=== PATIENT | male | born 1960 | race Caucasian/White ===

== ENCOUNTER 2019-08-26 11:45 | Inpatient (IN) | payer MEDICARE, MEDICAID ==
[~2019-08-26] VITALS: Ht 177.8 cm; Wt 68.5 kg
[2019-08-26] MEDS ORDERED: magnesium hydroxide 30ml (MOM) UD suspension PO PRN (13:15)
[2019-08-26] MEDS ORDERED: acetaminophen 325mg tablet PO PRN ×2 (13:15)
[2019-08-26] MEDS ORDERED: loperamide 2mg capsule PO PRN (13:15)
[2019-08-26] MEDS ORDERED: mag hydrox/Alum hydrox/simeth 30ml oral suspension PO PRN (13:15)
--- NOTE | 2019-08-26 14:05 | NUR ---
Client arrived on unit at 1405 hours and was alert and oriented x 3. He was unsure of event.Original 5150 accompanied client and was given to CRN. Safety search was conducted and inventory of belongings was conducted.Mental Health Assessment to be conducted by this automatic typewriter inspector.Mrsa will be collected and sent for processing. Client understands reasons for admit and has contracted verbally for safe unit behaviors. Client was given orientation of unit and room. He has been compliant with admission process and has displayed no concerning behaviors as of this writing.Vital signs on admit were, BP+ 101/60, P=86.o2 sat was 97 percent on RA and R=16. Client was drinking coffee so temperature will be taken after admission interview. Addendum: 08/26/19 at 1701 by Timmy Boss RN Admission temp was 98.1.
[2019-08-26] MEDS ORDERED: FLO0.4C PO (15:05)
[2019-08-26] MEDS ORDERED: LEVO112T5 PO (15:05)
[2019-08-26] MEDS ORDERED: CLOZ100T31 PO (15:05)
[2019-08-26] MEDS ORDERED: CEFD300C3 PO (15:05)
[2019-08-26] MEDS ORDERED: CLON-527 PO (15:05)
[2019-08-26] MEDS ORDERED: SERT100T10 PO (15:05)
[2019-08-26] MEDS ORDERED: LISI-643 PO (15:05)
[2019-08-26] MEDS ORDERED: CLOZ200T PO (15:05)
[2019-08-26] MEDS ORDERED: MULT1CAP44 PO (15:05)
[2019-08-26] MEDS ORDERED: LAMO100T2 PO (15:05)
[2019-08-26] MEDS ORDERED: PYRI50TA13 PO (15:05)
[2019-08-26] MEDS ORDERED: OLAN20TA34 PO (15:05)
[2019-08-26] MEDS ORDERED: TRAZ300T2 PO (15:05)
[2019-08-26] MEDS ORDERED: DIVA-74 PO (15:05)
[2019-08-26] MEDS ORDERED: QUET300T19 PO (15:06)
[2019-08-26] MEDS ORDERED: QUET-1 PO (15:06)
[2019-08-26] MEDS: cefpodoxime proxetil 100mg tablet PO SCH (16:52)
[2019-08-26 20:00] VITALS: BP 91/54
[2019-08-26] MEDS: traZODone 150mg tablet PO SCH (20:38)
[2019-08-26] MEDS: lamoTRIgine 100mg tablet PO SCH (20:38)
[2019-08-26] MEDS ORDERED: olanzapine 10mg tablet PO SCH (21:00)
[2019-08-27] MEDS: guaiFENesin/DM 10ml UD oral syrup PO PRN ×2 (01:03→07:32)
--- NOTE | 2019-08-27 02:59 | NUR ---
Nursing Progress Note: Legal hold: LPS conserved Client on voluntary/involuntary status for GD/DTS/DTO: GD Report received from nurse with use of SBAR: Adrián DELGADO Why are they here: PT lost his placement at [place] after being hospitalized for a suspected stroke. Pt was diagnosed with a pneumonia and after being transferred to a series of hospitals was admitted to [facility]. PT is LPS conserved. Assessment What has happened this shift: PT isolates to his room the majority of the shift aside from coming out for HS snack. He is cooperative with 1:1 assessment, but does not talk extensively. "I am just really tired." Land Examiner asks if pt knows why he is here at [facility] and he replies, "Yes I have hemochromatosis and I haven't been bled in awhile and that is a priority." He denies any depression or anxiety. He denies SI/HI/AH/VH. PT has a strong productive cough that appears to be keeping him awake. Pt's head of bed elevated and Robitussin prn was given, which had good effect. 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: tab builder, no group Were meds taken: yes Any med S/E: none observed or reported Mental Status Exam Appearance: thin man in green scrubs, greasy hair. Eye contact: poor, mostly wants his eyes closed Behavior: isolative, fatigued Speech: clear Mood: fair Affect: fatigued Thought process:linear Thought Content: thinks he is here for hemochromatosis Cognition: fair Insight: poor Judgment: poor Interventions PRN's used: Robitussin Therapeutic interventions: 1:1 bedside assessment completed, medication education and administration, Q15 minute safety rounds, therapeutic listening, reality reinforcement Justification of Continued Inpatient Treatment: LPS conserved, no current placement
[2019-08-27] MEDS ORDERED: tuberculin, purif. prot. deriv. 5 units/0.1ml ID ONE (07:30)
[2019-08-27] MEDS: tamsulosin 0.4mg capsule PO SCH (07:40)
[2019-08-27] MEDS: multivitamins, therapeutics tablet PO SCH (07:40)
[2019-08-27] MEDS: lamoTRIgine 100mg tablet PO SCH ×2 (07:40→20:04)
[2019-08-27] MEDS: pyridoxine 50mg tablet PO SCH (07:40)
[2019-08-27] MEDS: sertraline 50mg tablet PO SCH (07:40)
[2019-08-27] MEDS: levoTHYROXINE 112mcg tablet PO SCH (07:41)
[2019-08-27 08:00] VITALS: BP 103/66
[2019-08-27] MEDS: lisinopril 10 MG tablet PO SCH (08:20)
[2019-08-27] MEDS: benzocaine/menthol oral lozeng 1 EACH BOX MM PRN ×5 (08:40→22:05)
[2019-08-27] MEDS: cefpodoxime proxetil 100mg tablet PO SCH ×2 (08:41→17:21)
[2019-08-27 09:56] LABS: CHOL/HDL RATIO 3.3 (0.00-4.99); CHOLESTEROL 112 MG/DL (0-200); HDL CHOLESTEROL 34 MG/DL (35-60); LDL CHOLESTEROL 67 MG/DL (50-100); TRIGLYCERIDES 81 MG/DL (20-135)
--- NOTE | 2019-08-27 10:03 | NUR ---
Malnutrition consult: Patient with no reliable wt hx as most recent wt was 80 kg in 2014 with no documentation of how wt was obtained. Current documented wt is appropriate. Pt on regular diet with 100% PO intake meeting nutrient needs. No edema or wounds. Pt currently lacks a minimum of two criteria for malnutrition. Will continue to follow. Addendum: 08/27/19 at [address] Amended: Links added.
[2019-08-27] MEDS: NICOTINE POLACRILEX 2 MG LOZENGE BC PRN ×2 (12:40→15:17)
--- NOTE | 2019-08-27 16:49 | NUR ---
Nursing Progress Note: ARNOLDO Legal hold: LPS conserved Client on voluntary/involuntary status for GD/DTS/DTO: GD Report received from nurse with use of SBAR: CHERISE Lynn Why are they here: Pt lost his placement at [place] after being hospitalized for a suspected stroke. Pt was diagnosed with a pneumonia and after being transferred to a series of hospitals was admitted to [facility]. Pt is LPS conserved. Assessment What has happened this shift: Pt is found sleeping at change of shift. He is cooperative with 1:1 assessment at bedside, but is guarded. Pt appears very tired today. Pt appears to be confused on why he has been admitted. He denies SI/HI/AH/VH. He denies any depression or anxiety symptoms today. Pt has a strong productive cough that appears to be keeping him awake. PRN menthol/benzocaine ronna utilized freq today. He also used PRN nicotine ronna as well. He requests to have nicotine patch ordered. Pt requested multiple snacks throughout the day. S/I, H/I: denies A/VH: denies Sleep: 10.25hrs NOC ADL's: independent Group attendance: Yes Were meds taken: Yes Any med S/E: none observed or reported Mental Status Exam Appearance: disheveled in neon pants, slippers and greasy hair Eye contact: direct Behavior: isolative, fatigued Speech: clear, soft Mood: feeling better Affect: mostly fatigued Thought process: linear Thought Content: focused on nicotine ronna & cough drops Cognition: fair Insight: poor Judgment: poor Interventions PRN's used: nicotine ronna X2, cough drops X4 Therapeutic interventions: 1:1 bedside assessment completed, medication education and administration, Q15 minute safety rounds, therapeutic listening, reality reinforcement Justification of Continued Inpatient Treatment: LPS conserved, no current placement
[2019-08-27] MEDS: nicotine 21mg patch - 24 hr TD SCH (17:21)
[2019-08-27 20:00] VITALS: BP 114/85
[2019-08-27] MEDS: lactobacillus rhamnosus 10,000 MMU CELLS/CAPSULE PO SCH (20:04)
[2019-08-27] MEDS: traZODone 150mg tablet PO SCH (20:05)
--- NOTE | 2019-08-27 23:07 | NUR ---
Nursing Progress Note: Legal hold: LPS conserved Client on voluntary/involuntary status for GD/DTS/DTO: GD Report received from nurse with use of SBAR: yes Why are they here: PT lost his placement at [place] after being hospitalized for a suspected stroke. Pt was diagnosed with a pneumonia and after being transferred to a series of hospitals was admitted to [facility]. PT is LPS conserved. Assessment What has happened this shift: Pt is visible on the unit at shift change and requests to shower. Pt showers and changes into clean clothing. He is observed writing on paper and using the telephone. He said his day went "well" and denies SI/HI/AH/VH at this time. PT states he needs to be seen for his hemochromatosis. PT comes up to staff requesting ambien, pt is told ambien is not on his medication regimen, and he received trazodone. 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: shift boss, no group Were meds taken: yes Any med S/E: none observed or reported Mental Status Exam Appearance: clean green scrubs, showered this shift Eye contact: poor, mostly wants his eyes closed Behavior: isolative, fatigued Speech: clear Mood: fair Affect: fatigued Thought process:linear Thought Content: thinks he is here for hemochromatosis Cognition: fair Insight: poor Judgment: poor Interventions PRN's used: none Therapeutic interventions: 1:1 bedside assessment completed, medication education and administration, Q15 minute safety rounds, therapeutic listening, reality reinforcement Justification of Continued Inpatient Treatment: LPS conserved, no current placement
[2019-08-28] MEDS: NICOTINE POLACRILEX 2 MG LOZENGE BC PRN ×4 (00:17→20:39)
[2019-08-28] MEDS: benzocaine/menthol oral lozeng 1 EACH BOX MM PRN ×7 (00:35→23:09)
[2019-08-28] MEDS: levoTHYROXINE 112mcg tablet PO SCH (07:44)
[2019-08-28] MEDS: multivitamins, therapeutics tablet PO SCH (07:44)
[2019-08-28] MEDS: tamsulosin 0.4mg capsule PO SCH (07:45)
[2019-08-28] MEDS: lisinopril 10 MG tablet PO SCH (07:45)
[2019-08-28] MEDS: sertraline 50mg tablet PO SCH (07:46)
[2019-08-28] MEDS: lactobacillus rhamnosus 10,000 MMU CELLS/CAPSULE PO SCH ×2 (07:46→20:38)
[2019-08-28] MEDS: lamoTRIgine 100mg tablet PO SCH ×2 (07:46→20:38)
[2019-08-28] MEDS: pyridoxine 50mg tablet PO SCH (07:46)
[2019-08-28] MEDS: nicotine 21mg patch - 24 hr TD SCH (07:49)
[2019-08-28] MEDS: cefpodoxime proxetil 100mg tablet PO SCH ×2 (08:02→18:07)
[2019-08-28 08:14] VITALS: BP 110/68
--- NOTE | 2019-08-28 10:39 | NUR ---
Called [facility] (ph# [phone]-direct line) and left a message requesting a call back regarding placement. Main # for [facility] is [phone] VERONIQUE Finney
--- NOTE | 2019-08-28 17:31 | NUR ---
Nursing Progress Note: Legal hold: LPS conserved Client on voluntary/involuntary status for GD/DTS/DTO: GD Report received from nurse Chely Guerrero with use of SBAR: yes Why are they here: PT lost his placement at [place] after being hospitalized for a suspected stroke. Pt was diagnosed with a pneumonia and after being transferred to a series of hospitals was admitted to [facility]. PT is LPS conserved. Assessment What has happened this shift: Pt. asleep at start of shift. Pt. awake for breakfast and ate all meals in community room. Pt. is focused on calling pt. advocate and spent majority of the morning making phone calls but will discuss who he is making phone calls to nor why. 1:1 done at bedside. Pt. offers minimal information during interview. Pt. denies SI/HI, A/V hallucinations. Pt. isolates to his room, seen writing down notes and numbers on paper. Pt. rarely socializes wtih other patients. Pt. is easily distracted. Pt. starts to eat his lunch and then becomes distracted, going to his room and writing things down. S/I, H/I: denies A/VH: denies Sleep: Pt. did not nap on day shift. ADL's: independent Group attendance: No Were meds taken: Yes Any med S/E: none observed or reported Mental Status Exam Appearance: clean green scrubs, showered this shift Eye contact: minimal Behavior: Isolative, guarded Speech: clear Mood: fair Affect: fatigued Thought process: linear, paranoid Thought Content: Pt. focused on making phone calls but does not say to who. Cognition: fair Insight: poor Judgment: poor Interventions PRN's used: none Therapeutic interventions: 1:1 bedside assessment completed, medication education and administration, Q15 minute safety rounds, therapeutic listening, reality reinforcement Justification of Continued Inpatient Treatment: LPS conserved, no current placement
[2019-08-28 20:00] VITALS: BP 129/76
[2019-08-28] MEDS: traZODone 150mg tablet PO SCH (20:38)
[2019-08-28] MEDS: hydrOXYzine 25 MG tablet PO PRN (23:08)
--- NOTE | 2019-08-28 23:51 | NUR ---
Nursing Progress Note: Legal hold: LPS conserved Client on voluntary/involuntary status for GD/DTS/DTO: GD Report received from Seven RN via SBAR Why are they here: PT lost his placement at [place] after being hospitalized for a suspected stroke. Pt was diagnosed with a pneumonia and after being transferred to a series of hospitals was admitted to [facility]. PT is LPS conserved. Assessment What has happened this shift: Pt walking around the unit, intermittently entering his room to use the telephone in an attempt to call his friend, Ghulam. "Just a friend, he's a block sealer. I've another friend who is an environmental permitting specialist, so he's very muscular, you know." Pt had to be directed not to hide the phone, as other people may want to use it and that it needs to be charged when not in use. Pt was educated that he could approach the nurses station to retrieve the phone within allowed hours, so long as it wasn't be used by another patient. Ridge nodded, stating, "Of course, of course". Pt's thoughts jump from topic to topic, but this RN was able to redirect to question be asked. Pt unable to detail history behind admission. Pt states he "has studied many things [lists multiple subjects], and my roommate is a 5 star general." Pt has loud, dry cough with diminished sound in bilateral lung bases. Pt attended snack and occasionally interacted with peers. Turned in to sleep at 2330. S/I, H/I: Denies A/VH: Denies Sleep: See Sleep Assessment 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: N/A Were meds taken: Yes Any med S/E: None observed nor reported Mental Status Exam Appearance: Green unit scrub pants, personal sweater, hair combed Eye contact: Direct Behavior: Walking around unit, talking on the phone, Writing on paper in room, coloring Speech: Clear, normal rate and rhythm Mood: "I'm okay" Affect: Blunted with occasional brightening Thought process: Delusional Thought Content: Reaching his friend, Ghulam, via telephone; Wanting to go home Cognition: Impaired, A/Ox3 (off for events) Insight: Poor Judgment: Poor to fair Interventions PRN's used: Nicotine Lozenge, Chloraseptic Lozenge x2, Atarax Therapeutic interventions: 1:1 bedside assessment completed, medication education and administration, Q15 minute safety rounds, therapeutic listening, reality reinforcement Justification of Continued Inpatient Treatment: LPS conserved, no current placement. Awaiting call back from Tong Gonzalez.
--- NOTE | 2019-08-29 06:50 | NUR ---
Met with Ct yesterday to complete Psychosocial Assessment. Left message for [facility] (ph# [phone]) regarding placement. Main # for [facility] is [phone]. VERONIQUE Finney Addendum: 08/29/19 at 0653 by Genesis Farrell SS Amended: Links added.
[2019-08-29 07:56] VITALS: BP 113/57
[2019-08-29] MEDS: nicotine 21mg patch - 24 hr TD SCH (08:41)
[2019-08-29] MEDS: tamsulosin 0.4mg capsule PO SCH (08:42)
[2019-08-29] MEDS: cefpodoxime proxetil 100mg tablet PO SCH ×2 (08:42→17:59)
[2019-08-29] MEDS: pyridoxine 50mg tablet PO SCH (08:42)
[2019-08-29] MEDS: lactobacillus rhamnosus 10,000 MMU CELLS/CAPSULE PO SCH ×2 (08:42→21:04)
[2019-08-29] MEDS: multivitamins, therapeutics tablet PO SCH (08:42)
[2019-08-29] MEDS: lisinopril 10 MG tablet PO SCH (08:42)
[2019-08-29] MEDS: NICOTINE POLACRILEX 2 MG LOZENGE BC PRN ×4 (08:42→18:04)
[2019-08-29] MEDS: levoTHYROXINE 112mcg tablet PO SCH (08:42)
[2019-08-29] MEDS: sertraline 50mg tablet PO SCH (08:42)
[2019-08-29] MEDS: lamoTRIgine 100mg tablet PO SCH ×2 (08:42→21:03)
[2019-08-29] MEDS: benzocaine/menthol oral lozeng 1 EACH BOX MM PRN ×4 (10:59→23:37)
--- NOTE | 2019-08-29 15:21 | NUR ---
Nursing Progress Note: ARNOLDO Legal hold: LPS conserved Client on voluntary/involuntary status for GD/DTS/DTO: GD Report received from CHERISE Lynn via SBAR Why are they here: PT lost his placement at [place] after being hospitalized for a suspected stroke. Pt was diagnosed with a pneumonia and after being transferred to a series of hospitals was admitted to [facility]. PT is LPS conserved. Assessment What has happened this shift: Pt walking around the unit at shift change. He requests nicotine ronna and cough drops freq throughout the day. Pt has poor boundaries today and often comes into the nurses station and asks for misc items throughout the day. Pt's thoughts jump from topic to topic, but this RN was able to redirect to question be asked. He reports that his girlfriend is Deborah Sher. Pt has loud, dry cough he reports it has been improving. Pt is paranoid and accusatory with his roommate, hinting that his roommate stole papers/phone numbers from his side table. TB test completed today. S/I, H/I: Denies A/VH: Denies Sleep: 4.25hrs noc 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: yes Were meds taken: Yes Any med S/E: None observed nor reported Mental Status Exam Appearance: Green unit scrub pants, personal sweater, hair combed Eye contact: Direct Behavior: Walking around unit, talking on the phone Speech: Clear, normal rate and rhythm Mood: "I'm fine" Affect: Blunted with occasional brightening Thought process: Delusional, paraniod Thought Content: Wanting to go home, reminiscing about historical events Cognition: Impaired, A/Ox3 Insight: Poor Judgment: Poor Interventions PRN's used: Nicotine Lozenge X3, Chloraseptic Lozenge x4 Therapeutic interventions: 1:1 bedside assessment completed, medication education and administration, Q15 minute safety rounds, therapeutic listening, reality reinforcement Justification of Continued Inpatient Treatment: LPS conserved, no current placement. Awaiting call back from Tong Gonzalez.
[2019-08-29 17:23] LABS: BASOPHILS # (AUTO) 0.1 X10'3 (0-0.2); BASOPHILS % (AUTO) 0.5 % (0-1); EOSINOPHILS # (AUTO) 0.2 X10'3 (0-0.9); EOSINOPHILS % (AUTO) 1.6 % (0-6); LYMPHOCYTES # (AUTO) 1.8 X10'3 (1.1-4.8); LYMPHOCYTES % (AUTO) 11.9 % (21-51); MEAN CORPUSCULAR HGB CONC 34.2 g/dL (33.0-36.5); MEAN CORPUSCULAR VOLUME 93.5 FL (78-98); MEAN PLATELET VOLUME 6.2 FL (7.4-10.4); MONOCYTES # (AUTO) 1.4 X10'3 (0-0.9); MONOCYTES % (AUTO) 9.2 % (2-12); NEUTROPHILS # (AUTO) 11.6 X10'3 (1.8-7.7); NEUTROPHILS % (AUTO) 76.8 % (42-75); PLATELET COUNT 572 X10'3 (140-440); RED BLOOD COUNT 3.75 X10'6 (4.70-6.10); RED CELL DISTRIBUTION WIDTH 14.1 % (11.5-14.5); WHITE BLOOD COUNT 15.1 X10'3 (4.5-11.0)
[2019-08-29 20:00] VITALS: BP 122/64
[2019-08-29] MEDS ORDERED: traZODone 50mg tablet PO SCH (21:00)
[2019-08-29] MEDS: traZODone 150mg tablet PO SCH (21:04)
[2019-08-29] MEDS ORDERED: aspirin/acetaminophen/caffeine tablet PO PRN (23:45)
--- NOTE | 2019-08-30 01:19 | NUR ---
Nursing Progress Note: Legal hold: LPS conserved Client on involuntary status GD Report received from CHERISE Blanchard with use of SBAR Why are they here: PT lost his placement at [place] after being hospitalized for a suspected stroke. Pt was diagnosed with a pneumonia and after being transferred to a series of hospitals was admitted to [facility]. PT is LPS conserved. Assessment What has happened this shift: Pt seen walking the unit at shift change. Pt comes into observation room, wanting his night meds. Pt is cooperative with 1:1 assessment and is medication compliant. Pt has a room change and states "I like my room, for now." Pt is up for HS snack then retires to bed after medication administration. Pt later requests a throat lozenge and a nicotine lozenge at the same time. Administered throat lozenge and would admin the nicotine lozenge shortly after. Pt was satisfied. Pt remains in bed sleeping at the time of this writing. 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 Cognition: Impaired, A/Ox3 (off for events) Insight: Poor Judgment: Poor Interventions PRN's used: Chloraseptic Lozenge, Tylenol Therapeutic interventions: 1:1 therapeutic assessment, medication administration/education/monitoring, therapeutic listening, reinforced realty, Q15 minute safety check. Justification of Continued Inpatient Treatment: LPS conserved, no current placement. Awaiting call back from Tong Gonzalez. Addendum: 08/30/19 at 0225 by Marlen Mcallister RN Pt woke up requesting a Nicotine Lozenge. Pt is on continuously on his call light and states "it is morning time, it is time to be up." Pt is keeping his roommate awake. Administered Atarax. Will continue to monitor. Addendum: 08/30/19 at 0349 by Marlen Mcallister RN Pt insisted on leaving Nicotine patch on. Pt was educated that is does cause night cantu. CBC results from 08/29 ; WBC 15.1; RBC 3.75 HGB 12.0, HCT 35. Pt has hemochromatosis. Addendum: 08/30/19 at 0604 by Marlen Mcallister RN Pt continuously asking for Nicotine Lozenge and throat lozenge. Attempted to educated pt throughout the night in the use of lozenges. Pt chews them then wants another.
[2019-08-30] MEDS: hydrOXYzine 25 MG tablet PO PRN (02:18)
[2019-08-30] MEDS: NICOTINE POLACRILEX 2 MG LOZENGE BC PRN ×4 (02:18→17:01)
[2019-08-30] MEDS: LORazepam 1 MG tablet PO PRN ×2 (02:49→10:40)
[2019-08-30] MEDS: benzocaine/menthol oral lozeng 1 EACH BOX MM PRN ×3 (03:33→18:10)
[2019-08-30] MEDS: lactobacillus rhamnosus 10,000 MMU CELLS/CAPSULE PO SCH ×2 (07:21→21:54)
[2019-08-30] MEDS: multivitamins, therapeutics tablet PO SCH (07:21)
[2019-08-30] MEDS: lamoTRIgine 100mg tablet PO SCH ×2 (07:21→21:54)
[2019-08-30] MEDS: levoTHYROXINE 112mcg tablet PO SCH (07:21)
[2019-08-30] MEDS: pyridoxine 50mg tablet PO SCH (07:21)
[2019-08-30] MEDS: tamsulosin 0.4mg capsule PO SCH (07:22)
[2019-08-30] MEDS: sertraline 50mg tablet PO SCH (07:22)
[2019-08-30] MEDS: lisinopril 10 MG tablet PO SCH (07:24)
[2019-08-30] MEDS: nicotine 21mg patch - 24 hr TD SCH (07:28)
[2019-08-30 07:53] VITALS: BP 127/66
[2019-08-30] MEDS: cefpodoxime proxetil 100mg tablet PO SCH ×2 (08:40→16:55)
--- NOTE | 2019-08-30 11:17 | NUR ---
DISCHARGE PLANNING Faxed Physician's report, PPD Results, and H&P to Tennille Christopher, [facility], at their request for placement. Fax# [phone] Phone# [phone] VERONIQUE Finney
--- NOTE | 2019-08-30 13:43 | NUR ---
Initial: patient continues to meet needs with PO Intake. On average, patient is eating 75-100% of meals, patient was eating 25-49% for just three meals and eating adequately with all others. No nutrition problem at this time. Will continue to follow. Recommend: 1. continue regular diet 2. bowel care as needed 3. weight per rx Addendum: 08/30/19 at [address] Amended: Links added.
--- NOTE | 2019-08-30 16:09 | NUR ---
Nursing Progress Note: Ridge Legal hold: LPS conserved Client on involuntary status GD Report received from Chely Guerrero RN with use of SBAR Why are they here: PT lost his placement at [place] after being hospitalized for a suspected stroke. Pt was diagnosed with a pneumonia and after being transferred to a series of hospitals was admitted to [facility]. PT is LPS conserved. Assessment: Client was awake and visible on unit to begin the shift. Client has had some behaviors the required redirection and limit setting. Client has been hoarding the phone and behaving in an intrusive manner at the Nursing Station. Client was assigned a staff member for him to bring request to. Also, client is permitted to use the phone but the use must consider that other members of the milleu need to utilize the phone as well. Client was given a PRN of Ativan this am for agitation with good effect noted. Client did participate in am group activities and socialized well during that time. Client was discovered to be defacating on his bathroom floor and utilizing socks for cleaning and then discared on the floor. Client was redirected and it was explained to him that his actions posed a risk to other peers as well as staff. Client wants to blame others for the action but he was observed directly by staff conducting the above mentioned activities. Client will be given gloves and the request will be made for him to clean his bathroom. It is felt by this lyric writer as well as Techs that these actions have been deliberate and client is intentionally acting in this manner for secondary gain. After soiling himself, bathroom and room with feces, client stated, " Makenna (Housekeeping) needs to clean my room again. Client was given cleaning equipment and was escorted 3 by Staff to client bathroom. Client was given gloves and instructions as it pertains to "universal precautions" and was asked to clean up the bathroom. He conducted the cleaning and washed his hands afterwards. Soiled linen and equipment were disposed of per unit protocol by Staff. Client returned to Group Room after cleaning and behavior has been very appropriate as of this writing. (1436 hours). At 1500 hours , client approached this lyric writer and requested that he have access to his room. He demonstrated good insight while explaining his earlier actions and allowed that he was responsible for the, "mess" and that future oversights will be corrected in the same manner. He was permitted the use of the room and his behaviors have been appropriate since.(1517) Called received from Pharmacy stating antibiotic will be discontinuesd and that another evaluation will be needed before starting any more antibiotic therapy. Client did have an elevated WBC count on most recent labwork. Client behavior has been appropriate this afternoon. He has been playing music with peers and affect is bright. S/I, H/I: Pt denies A/VH: Pt denies Sleep: rested at times this shift ADL's: needs prompting Group attendance: yes Were meds taken: Medication compliant Any med S/E: None observed or reported Mental Status Exam Appearance: Disheveled, wearing green unit scrubs Eye contact: Direct Behavior: Cooperative Speech: Clear, normal rate and rhythm Mood: Affect: Blunted with occasional brightening Thought process: Delusional Thought Content: Cognition: Impaired, A/Ox3 (off for events) Insight: Poor Judgment: Poor Interventions PRN's used: Ativan,nicotine replacement and Chloreseptic Lozenge. Therapeutic interventions: 1:1 therapeutic assessment, medication administration/education/monitoring, therapeutic listening, reinforced realty, Q15 minute safety check. Justification of Continued Inpatient Treatment: LPS conserved, no current placement. Awaiting call back from Tong Gonzalez.
[2019-08-30 20:00] VITALS: BP 103/51
[2019-08-30] MEDS ORDERED: QUEtiapine 25mg tablet PO ONE (21:45)
[2019-08-30] MEDS: traZODone 150mg tablet PO SCH (21:53)
--- NOTE | 2019-08-31 00:55 | NUR ---
Nursing Progress Note: Legal hold: LPS conserved Client on involuntary status GD Report received from CHERISE Blanchard with use of SBAR Why are they here: PT lost his placement at [place] after being hospitalized for a suspected stroke. Pt was diagnosed with a pneumonia and after being transferred to a series of hospitals was admitted to [facility]. PT is LPS conserved. Assessment What has happened this shift: Pt is in his room at shift change. Pt is requesting to take a shower. Pt is up for shower then to HS snack. Pt is cooperative, but does not engage in conversation. Pt has no behavioral issues this shift. Pt is medication compliant. Pt's nicotine patch came off in shower. Discarded in appropriate container. Seroquel 50mg was added to scheduled HS meds. Incontinent incident: Pt came out of room around 0015 with no pants. Pt was incontinent of bowels. Large amout of stool on bed and in toilet. Pt showered and bedding was changed. No c/o of GI issue from patient. S/I, H/I: Pt denies A/VH: Pt denies Sleep: See Sleep Assessment 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: wrist liner, no group Were meds taken: Medication compliant Any med S/E: None observed or reported Mental Status Exam Appearance: Disheveled, wearing green unit scrubs Eye contact: Direct Behavior: Cooperative Speech: Clear, normal rate and rhythm Mood: Quiet Affect: Blunted with occasional brightening Thought process: Delusional Thought Content: Cognition: Impaired, A/Ox3 (off for events) Insight: Poor Judgment: Poor Interventions PRN's used: None Therapeutic interventions: 1:1 therapeutic assessment, medication administration/education/monitoring, therapeutic listening, reinforced realty, Q15 minute safety check. Justification of Continued Inpatient Treatment: LPS conserved, no current placement. Awaiting call back from Tong Gonzalez. Addendum: 08/31/19 at 0301 by Marlen Mcallister RN Pt up with another stool incontinent episode. Assisted in cleaning up pt and administering 2mg Imodium.
[2019-08-31] MEDS: NICOTINE POLACRILEX 2 MG LOZENGE BC PRN ×5 (06:47→19:18)
[2019-08-31] MEDS: benzocaine/menthol oral lozeng 1 EACH BOX MM PRN ×3 (06:47→12:51)
[2019-08-31] MEDS: lactobacillus rhamnosus 10,000 MMU CELLS/CAPSULE PO SCH ×2 (07:35→20:29)
[2019-08-31] MEDS: pyridoxine 50mg tablet PO SCH (07:35)
[2019-08-31] MEDS: cefpodoxime proxetil 100mg tablet PO SCH ×2 (07:35→17:33)
[2019-08-31] MEDS: nicotine 21mg patch - 24 hr TD SCH (07:35)
[2019-08-31] MEDS: levoTHYROXINE 112mcg tablet PO SCH (07:36)
[2019-08-31] MEDS: tamsulosin 0.4mg capsule PO SCH (07:36)
[2019-08-31] MEDS: lamoTRIgine 100mg tablet PO SCH (07:36)
[2019-08-31] MEDS: lisinopril 10 MG tablet PO SCH (07:36)
[2019-08-31] MEDS: sertraline 50mg tablet PO SCH (07:36)
[2019-08-31] MEDS: multivitamins, therapeutics tablet PO SCH (07:36)
[2019-08-31 07:48] VITALS: BP 99/55
--- NOTE | 2019-08-31 15:20 | NUR ---
Nursing Progress Note: [facility] Legal hold: LPS conserved Client on involuntary status GD Report received from CHERISE Cerda with use of SBAR Why are they here: PT lost his placement at [place] after being hospitalized for a suspected stroke. Pt was diagnosed with a pneumonia and after being transferred to a series of hospitals was admitted to [facility]. PT is LPS conserved. Assessment What has happened this shift: On arrival on unit, patient was using call light for general requests. Immediately spoke with patient regarding appropriate use of call light setting limits, verbalized understanding and behavior immediately stopped. Patient then repeatedly hollered down the sterling the nurses name, again, he was redirected that this behavior is not appropriate and he can approach the staff respectfully for any requests. Patient then apologized and verbalized understanding. During lunch he began coughing, stating he was choking, the behavior continued until he was asked to return to his room to avoid annoying others. He is easily redirectable, observed putting a puzzle together following lunch. Remained very pleasant and appropriate throughout afternoon. S/I, H/I: Pt denies A/VH: Pt denies Sleep: 6.5 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: no Were meds taken: Yes Any med S/E: None observed or reported Mental Status Exam Appearance: Disheveled, wearing green unit scrubs Eye contact: Direct Behavior: Cooperative Speech: Clear, pressured at times and regular rhythm Mood: angry, irritable Affect: congruent with mood Thought process: concrete Thought Content: disorganized, circumstantial Cognition: Impaired, A/Ox3 Insight: Poor Judgment: Poor Interventions PRN's used: None Therapeutic interventions: 1:1 therapeutic assessment, medication administration/education/monitoring, therapeutic listening, reinforced realty, Q15 minute safety check. Justification of Continued Inpatient Treatment: LPS conserved, no current placement. Awaiting call back from Tong Gonzalez.
[2019-08-31 19:32] VITALS: BP 122/68
[2019-08-31] MEDS: lamoTRIgine 25mg tablet PO SCH (20:29)
[2019-08-31] MEDS: traZODone 150mg tablet PO SCH (20:31)
[2019-08-31] MEDS ORDERED: QUEtiapine 25mg tablet PO SCH (21:00)
[2019-08-31] MEDS: quetiapine 100mg tablet PO SCH (21:03)
--- NOTE | 2019-08-31 22:13 | NUR ---
Nursing Progress Note: Legal hold: LPS conserved Client on involuntary status GD Report received from CHERISE Blanchard with use of SBAR Why are they here: PT lost his placement at [place] after being hospitalized for a suspected stroke. Pt was diagnosed with a pneumonia and after being transferred to a series of hospitals was admitted to [facility]. PT is LPS conserved. Assessment What has happened this shift: Pt sitting in group room putting together a puzzle at shift change. Pt is alert and cooperative. Pt states he has had no incontinent issues during the day. Pts nicotine patch was removed and discarded in appropriate container. Pt had to be redirected when he yelled for this film writer down the sterling,requesting a lozenge; other than that outburst there has been no behavioral issues with patient. Pt was medication compliant. Pt retired to his room after HS snack. Pt sleeping comfortably as of this writing. Will continue to monitor. S/I, H/I: Pt denies A/VH: Pt denies Sleep: See Sleep Assessment notation. Administered scheduled 150mg Trazadone. 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, no group Were meds taken: Medication compliant Any med S/E: None observed or reported Mental Status Exam Appearance: Disheveled, wearing green unit scrubs Eye contact: Direct Behavior: Cooperative Speech: Clear, normal rate and rhythm Mood: Slightly agitated Affect: Congruent with mood Thought process: Circumstantial Thought Content: Cognition: Impaired, A/Ox3 (off for events) Insight: Poor Judgment: Poor Interventions PRN's used: Nicotine lozenge Therapeutic interventions: 1:1 therapeutic assessment, limit setting, medication administration/education/monitoring, therapeutic listening, reinforced reality, [id number] minute safety check. Justification of Continued Inpatient Treatment: LPS conserved, no current placement. Awaiting call back from Tong Gonzalez.
[2019-09-01] MEDS: NICOTINE POLACRILEX 2 MG LOZENGE BC PRN ×7 (04:01→18:40)
[2019-09-01] MEDS: benzocaine/menthol oral lozeng 1 EACH BOX MM PRN ×7 (05:53→16:34)
[2019-09-01 07:15] VITALS: BP 116/67
[2019-09-01] MEDS: lamoTRIgine 25mg tablet PO SCH ×2 (07:38→20:39)
[2019-09-01] MEDS: pyridoxine 50mg tablet PO SCH (07:38)
[2019-09-01] MEDS: sertraline 50mg tablet PO SCH (07:39)
[2019-09-01] MEDS: multivitamins, therapeutics tablet PO SCH (07:39)
[2019-09-01] MEDS: lactobacillus rhamnosus 10,000 MMU CELLS/CAPSULE PO SCH ×2 (07:39→20:39)
[2019-09-01] MEDS: tamsulosin 0.4mg capsule PO SCH (07:39)
[2019-09-01] MEDS: levoTHYROXINE 112mcg tablet PO SCH (07:39)
[2019-09-01] MEDS: lisinopril 10 MG tablet PO SCH (07:39)
[2019-09-01] MEDS: cefpodoxime proxetil 100mg tablet PO SCH ×2 (07:39→17:03)
[2019-09-01] MEDS: nicotine 21mg patch - 24 hr TD SCH (07:43)
--- NOTE | 2019-09-01 15:16 | NUR ---
Nursing Progress Note: [facility] Legal hold: LPS conserved Client on involuntary status GD Report received from CHERISE Cerda with use of SBAR Why are they here: PT lost his placement at [place] after being hospitalized for a suspected stroke. Pt was diagnosed with a pneumonia and after being transferred to a series of hospitals was admitted to [facility]. PT is LPS conserved. Assessment What has happened this shift: Pt. Awake and in hallway at change of shift. Upon introduction, patient responded with a low grump. Appropriate with 1:1 assessment and medication administration. Polite and calm during breakfast. Mentioned he was waiting for Biden to show up. When asked if he knew him, he stated no, but he knows me. Remained in community room following breakfast, watching TV and working a puzzle. Was initially told he could not go outside with the group and very calmly asked this repairer typewriter why, (which it was a mistake). He was accompanied to the patio by two staff members and showed appreciation for the time. Has been cooperative and demonstrated appropriate behavior all day. S/I, H/I: Pt denies A/VH: Pt denies Sleep: 7 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: yes Were meds taken: Medication compliant Any med S/E: None observed or reported Mental Status Exam Appearance: Disheveled, wearing green unit scrubs Eye contact: Direct Behavior: Cooperative Speech: Clear, normal rate and rhythm Mood: labile, mostly cooperative Affect: Congruent with mood Thought process: Circumstantial Thought Content: delusional Cognition: Impaired, A/Ox3 Insight: Poor Judgment: Poor Interventions PRN's used: Therapeutic interventions: 1:1 therapeutic assessment, limit setting, medication administration/education/monitoring, therapeutic listening, reinforced reality, [id number] minute safety check. Justification of Continued Inpatient Treatment: LPS conserved, no current placement. Awaiting call back from Tong Gonzalez.
[2019-09-01 19:26] VITALS: BP 123/66
[2019-09-01] MEDS: traZODone 150mg tablet PO SCH (20:39)
[2019-09-01] MEDS: quetiapine 100mg tablet PO SCH (20:39)
--- NOTE | 2019-09-02 00:58 | NUR ---
Nursing Progress Note: [facility] Legal hold: LPS conserved Client on involuntary status GD Report received from CHERISE Blanchard with use of SBAR Why are they here: PT lost his placement at [place] after being hospitalized for a suspected stroke. Pt was diagnosed with a pneumonia and after being transferred to a series of hospitals was admitted to [facility]. PT is LPS conserved. Assessment What has happened this shift: Patient is in his room isolating after shift change. He is cooperative and friendly. He denies S/I or H/I at this time, he denies voices. Patient is delusional at times. Patient states he is feeling good. He does not elaborate about his thoughts. Patient presents as delusional at times. the patient is advised that he is in a safe place. S/I, H/I: Pt denies. A/VH: Pt denies Sleep:Will tally at 0500. 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: Yes, on day shift. Were meds taken: Medication compliant Any med S/E: None observed or reported. Mental Status Exam Appearance: Disheveled, wearing green unit scrubs. Eye contact: Direct. Behavior: Cooperative Speech: Clear, normal rate and rhythm Mood: Cooperative. Affect: Congruent with mood. Thought process: Circumstantial. Thought Content: Delusional. Cognition: Impaired, A/Ox3 Insight: Poor. Judgment: Poor. Interventions PRN's used: Therapeutic interventions: 1:1 therapeutic assessment, limit setting, medication administration/education/monitoring, therapeutic listening, reinforced reality, [id number] minute safety check. Justification of Continued Inpatient Treatment: LPS conserved, no current placement. Awaiting call back from Tong Gonzalez.
[2019-09-02] MEDS: NICOTINE POLACRILEX 2 MG LOZENGE BC PRN ×3 (05:45→21:18)
[2019-09-02] MEDS: benzocaine/menthol oral lozeng 1 EACH BOX MM PRN ×2 (07:06→10:15)
[2019-09-02 07:27] VITALS: BP 107/60
[2019-09-02] MEDS: lactobacillus rhamnosus 10,000 MMU CELLS/CAPSULE PO SCH ×2 (08:07→21:19)
[2019-09-02] MEDS: sertraline 50mg tablet PO SCH (08:07)
[2019-09-02] MEDS: lamoTRIgine 25mg tablet PO SCH ×2 (08:07→21:19)
[2019-09-02] MEDS: multivitamins, therapeutics tablet PO SCH (08:07)
[2019-09-02] MEDS: tamsulosin 0.4mg capsule PO SCH (08:07)
[2019-09-02] MEDS: levoTHYROXINE 112mcg tablet PO SCH (08:07)
[2019-09-02] MEDS: pyridoxine 50mg tablet PO SCH (08:07)
[2019-09-02] MEDS: cefpodoxime proxetil 100mg tablet PO SCH (08:07)
[2019-09-02] MEDS: nicotine 21mg patch - 24 hr TD SCH (08:09)
[2019-09-02] MEDS: lisinopril 10 MG tablet PO SCH (08:11)
--- NOTE | 2019-09-02 19:23 | NUR ---
Nursing Progress Note: [facility] Legal hold: LPS conserved Client on involuntary status GD Report received from CHERISE Blanchard with use of SBAR Why are they here: PT lost his placement at [place] after being hospitalized for a suspected stroke. Pt was diagnosed with a pneumonia and after being transferred to a series of hospitals was admitted to [facility]. PT is LPS conserved. Assessment What has happened this shift:This patient is ambulatory and socializing with other patients. Patient is Oriented X3 but becomes delusional intermittently. He speaks quietly and makes intermittent eye contact. Patient states he is feeling fine. He denies H/I or S/I. He denies hallucinations. Patients appearance is disheveled. The patient is cooperative and medication compliant. S/I, H/I: Pt denies. A/VH: Pt denies Sleep:Will tally at 0500. 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: Yes, on day shift. Were meds taken: Medication compliant Any med S/E: None observed or reported. Mental Status Exam Appearance: Disheveled, wearing green unit scrubs. Eye contact: Direct. Behavior: Cooperative Speech: Clear, normal rate and rhythm Mood: Cooperative. Affect: Congruent with mood. Thought process: Circumstantial. Thought Content: Delusional. Cognition: Impaired, A/Ox3 Insight: Poor. Judgment: Poor. Interventions PRN's used: Therapeutic interventions: 1:1 therapeutic assessment, limit setting, medication administration/education/monitoring, therapeutic listening, reinforced reality, [id number] minute safety check. Justification of Continued Inpatient Treatment: LPS conserved, no current placement. Awaiting call back from Tong Gonzalez.
[2019-09-02 19:57] VITALS: BP 127/76
[2019-09-02] MEDS: quetiapine 100mg tablet PO SCH (21:19)
[2019-09-02] MEDS: traZODone 150mg tablet PO SCH (21:19)
[2019-09-03] MEDS: benzocaine/menthol oral lozeng 1 EACH BOX MM PRN ×3 (04:58→20:43)
[2019-09-03 07:20] VITALS: BP 116/55
[2019-09-03] MEDS: sertraline 50mg tablet PO SCH (07:37)
[2019-09-03] MEDS: pyridoxine 50mg tablet PO SCH (07:37)
[2019-09-03] MEDS: lamoTRIgine 25mg tablet PO SCH ×2 (07:38→20:23)
[2019-09-03] MEDS: levoTHYROXINE 112mcg tablet PO SCH (07:38)
[2019-09-03] MEDS: lisinopril 10 MG tablet PO SCH (07:39)
[2019-09-03] MEDS: nicotine 21mg patch - 24 hr TD SCH (07:39)
[2019-09-03] MEDS: lactobacillus rhamnosus 10,000 MMU CELLS/CAPSULE PO SCH ×2 (07:39→20:23)
[2019-09-03] MEDS: tamsulosin 0.4mg capsule PO SCH (07:39)
[2019-09-03] MEDS: multivitamins, therapeutics tablet PO SCH (07:40)
--- NOTE | 2019-09-03 10:43 | NUR ---
DISCHARGE PLANNING Called Angela Christopher (Phone# [phone]) with [facility] to see if there is an update on Ct's placement. Left message requesting a call back. VERONIQUE Finney
[2019-09-03] MEDS: NICOTINE POLACRILEX 2 MG LOZENGE BC PRN ×2 (11:12→20:27)
[2019-09-03 15:42] LABS: BASOPHILS # (AUTO) 0.1 X10'3 (0-0.2); BASOPHILS % (AUTO) 0.7 % (0-1); EOSINOPHILS # (AUTO) 0.1 X10'3 (0-0.9); EOSINOPHILS % (AUTO) 1.1 % (0-6); HEMATOCRIT 41.1 % (42.0-52.0); HEMOGLOBIN 13.8 g/dl (14.0-17.9); LYMPHOCYTES # (AUTO) 1.6 X10'3 (1.1-4.8); MEAN CORPUSCULAR HEMOGLOBIN 31.4 PG (27.0-31.0); MEAN CORPUSCULAR HGB CONC 33.7 g/dL (33.0-36.5); MEAN CORPUSCULAR VOLUME 93.2 FL (78-98); MEAN PLATELET VOLUME 6.5 FL (7.4-10.4); MONOCYTES # (AUTO) 0.9 X10'3 (0-0.9); MONOCYTES % (AUTO) 7.8 % (2-12); NEUTROPHILS # (AUTO) 9.4 X10'3 (1.8-7.7); NEUTROPHILS % (AUTO) 77.4 % (42-75); PLATELET COUNT 500 X10'3 (140-440); RED BLOOD COUNT 4.41 X10'6 (4.70-6.10); RED CELL DISTRIBUTION WIDTH 14.2 % (11.5-14.5); WHITE BLOOD COUNT 12.1 X10'3 (4.5-11.0)
--- NOTE | 2019-09-03 16:27 | NUR ---
Nursing Progress Note: [facility] Legal hold: LPS conserved Client on involuntary status GD Report received from CHERISE Lynn with use of SBAR Why are they here: PT lost his placement at [place] after being hospitalized for a suspected stroke. Pt was diagnosed with a pneumonia and after being transferred to a series of hospitals was admitted to [facility]. PT is LPS conserved. Assessment What has happened this shift: Client was in bed to begin this shift. Client has been refusing to shower or perform ADL's. He will be prompted after breakfast to conduct a shower. He is malodorous and his clothes are not clean. Client is resistive to direction from staff. Compliant with medications and refused am assessment. Client did shower after several prompts. He attended am group but did not participate. Client is labile but redirectable. Client has required frequent redirection this shift as he is demanding and intrusive with staff. Client has been more social this afternoon with both staff and peers. S/I, H/I: Pt denies. A/VH: Pt denies Sleep: 6.5 hours last shift. ADL's: Independent NEEDS PROMPTING Group attendance: yes Were meds taken: Medication compliant Any med S/E: None observed or reported. Mental Status Exam Appearance: Disheveled, wearing green unit scrubs, green t-shirt Eye contact: Direct. Behavior: uncooperative Speech: Clear, normal rate and rhythm Mood: Cooperative. Affect: Congruent with mood. Thought process: Circumstantial. Thought Content: Delusional. Cognition: Impaired, A/Ox3 Insight: Poor. Judgment: Poor. Interventions PRN's used: Chloraseptic, Nicotine replacement Therapeutic interventions: 1:1 therapeutic assessment, limit setting, medication administration/education/monitoring, therapeutic listening, reinforced reality, [id number] minute safety check. Justification of Continued Inpatient Treatment: LPS conserved, no current placement. Awaiting call back from Tong Gonzalez.
[2019-09-03 19:09] VITALS: BP 121/80
[2019-09-03] MEDS: traZODone 150mg tablet PO SCH (20:22)
[2019-09-03] MEDS: quetiapine 100mg tablet PO SCH (20:23)
--- NOTE | 2019-09-03 22:14 | NUR ---
Nursing Progress Note: [facility] Legal hold: LPS conserved Client on involuntary status GD Report received from CHERISE Blanchard with use of SBAR Why are they here: PT lost his placement at [place] after being hospitalized for a suspected stroke. Pt was diagnosed with a pneumonia and after being transferred to a series of hospitals was admitted to [facility]. PT is LPS conserved. Assessment What has happened this shift:This patient is sitting in rec room at change of shift watching tv with other pt's. pt is cooperative and friendly during 1:1 and interacts appropriately. pt showed this rn the scars on his wrists from when he attempted suicide in the past. pt stated, "glad I didn't cut it the right way and kill myself." pt denies SI/HI. pt asked for nicotine lozenge and chloraseptic lozenge at hs med pass. S/I, H/I: Pt denies. A/VH: Pt denies Sleep:asleep now. 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: Yes, on day shift. Were meds taken: Medication compliant Any med S/E: None observed or reported. Mental Status Exam Appearance: Disheveled, wearing green unit scrubs. Eye contact: Direct. Behavior: Cooperative Speech: Clear, normal rate and rhythm Mood: Cooperative. Affect: Congruent with mood. Thought process: Circumstantial. Thought Content: Delusional. Cognition: Impaired, A/Ox3 Insight: Poor. Judgment: Poor. Interventions PRN's used: nicotine, throat lozenge Therapeutic interventions: 1:1 therapeutic assessment, limit setting, medication administration/education/monitoring, therapeutic listening, reinforced reality, [id number] minute safety check. Justification of Continued Inpatient Treatment: LPS conserved, no current placement. Awaiting call back from Tong Gonzalez.
[2019-09-04] MEDS: NICOTINE POLACRILEX 2 MG LOZENGE BC PRN ×4 (01:09→19:05)
[2019-09-04] MEDS: benzocaine/menthol oral lozeng 1 EACH BOX MM PRN ×3 (01:20→19:36)
[2019-09-04 07:26] VITALS: BP 102/72
[2019-09-04] MEDS: lactobacillus rhamnosus 10,000 MMU CELLS/CAPSULE PO SCH ×2 (08:01→20:26)
[2019-09-04] MEDS: multivitamins, therapeutics tablet PO SCH (08:01)
[2019-09-04] MEDS: levoTHYROXINE 112mcg tablet PO SCH (08:01)
[2019-09-04] MEDS: pyridoxine 50mg tablet PO SCH (08:01)
[2019-09-04] MEDS: tamsulosin 0.4mg capsule PO SCH (08:01)
[2019-09-04] MEDS: sertraline 50mg tablet PO SCH (08:02)
[2019-09-04] MEDS: lisinopril 10 MG tablet PO SCH (08:02)
[2019-09-04] MEDS: nicotine 21mg patch - 24 hr TD SCH (08:02)
[2019-09-04] MEDS: lamoTRIgine 25mg tablet PO SCH ×2 (08:03→20:26)
--- NOTE | 2019-09-04 11:16 | NUR ---
DISCHARGE PLANNING Called Angela Christopher (Phone# [phone]) with [facility] to see if there is an update on Ct's placement. Left message requesting a call back. VERONIQUE Finney
--- NOTE | 2019-09-04 14:25 | NUR ---
Nursing Progress Note Legal hold: LPS conserved Client on involuntary status GD Report received from Leah RN with use of SBAR Why are they here: PT lost his placement at [place] after being hospitalized for a suspected stroke. Pt was diagnosed with a pneumonia and after being transferred to a series of hospitals was admitted to [facility]. PT is LPS conserved. Assessment What has happened this shift: Pt in bed at start of shift. He is up for meals and groups. He spends a long time eating his meals usually spreads the food and numerous cups out all over half of the table. When asked where he lived prior to coming here he said, "I was homeless going to fight someone over a pizza, the only person I boost to is Cruz Mckay and [employer]." He continued to ramble talking about moving to [facility], helping Sandro Cleveland write his books and mentioned Gavin Rayo "the voice they wear a mask." S/I, H/I: Pt denies. A/VH: Pt denies Sleep: Up most of the shift ADL's: Independent; requires prompting Group attendance: yes Were Meds taken: Medication compliant Any med S/E: None observed or reported. Mental Status Exam Appearance: Disheveled, wearing green unit scrubs, green t-shirt; clothes are dirty and stained Eye contact: Direct. Behavior: can be passive aggressive Speech: no change in tone, pitch or strength Mood: apathetic Affect: flat Thought process: Circumstantial. Thought Content: Delusional. Cognition: Impaired, A/Ox3 Insight: Poor. Judgment: Poor. Interventions PRN's used: N/A Therapeutic interventions: 1:1 therapeutic assessment, limit setting, encouraged and prompted showers and group attendance, medication administration/education/monitoring, Q15 minute safety check. Justification of Continued Inpatient Treatment: LPS conserved, no current placement. Awaiting call back from Tong Gonzalez.
[2019-09-04 20:00] VITALS: BP 124/83
[2019-09-04] MEDS: traZODone 150mg tablet PO SCH (20:26)
[2019-09-04] MEDS: quetiapine 100mg tablet PO SCH (20:27)
--- NOTE | 2019-09-04 20:52 | NUR ---
Nursing Note: Pt. refused to remove Nicotine Patch at HS
[2019-09-05] MEDS: benzocaine/menthol oral lozeng 1 EACH BOX MM PRN ×4 (01:24→21:01)
--- NOTE | 2019-09-05 02:10 | NUR ---
Nursing Progress Note: Legal hold: LPS Client on involuntary status for GD Report received from nurse with use of SBAR: Seven RN Why are they here: Pt. lost his placement at [place] after being hospitalized for a suspected stroke. He was later diagnosed with a pneumonia, and after being transferred to a series of hospitals was admitted to [facility]. PT is LPS conserved. Assessment What has happened this shift: Pt. sitting in the Group Room finishing his dinner and watching TV at the beginning of the shift, he presents as withdrawn and does not interact with others. This machine sign writer introduced self and established rapport, pt. requested PRN Nicotine and sore throat lozenges. Pt's thought process is WNL, with interjected disorganized delusional statements. Pt. states, "I was on special forces for the OEtinene Jain case, someone had to do it!" Pt. continues to sit up in the Group Room completing a puzzle after he finishes his meal. 1:1 completed, pt. denies S/I, H/I, or any A/V/ELIZONDO, however he continues to make grandiose delusional statements. When questioned by this machine sign writer in regard to why he is here, pt. states, "I'm here because I am God, put that in your pipe and smoke it!" He then goes on to talk about how the CMAs are on tonight, and how he once met Maged Diallo and was surprised when he used the public restroom. S/I, H/I: Denies A/VH: Denies, does not appear internally preoccupied Sleep: Pt. awakens at approximately 0130 and again requests PRN Nicotine and sore throat lozenges. He then remains awake reading his book, this machine sign writer encourages him to try and get more sleep, and he voices understanding. Will continue to monitor. ADL's: Requires some direction and prompting. Group attendance: Pt. attends snack, and reports he attends groups during the day. When questioned regarding what he has learned, pt. stated, "To be a normal person." Were meds taken: Yes Any med S/E: None Mental Status Exam Appearance: Slightly disheveled, appropriately dressed Eye contact: Good Behavior: Cooperative and withdrawn Speech: WNL, responds only to questions Mood: Suppressed Affect: Labile Thought process: WNL with interjected disorganized delusional statements Thought Content: Grandiose delusional Cognition: A&O X3 (not to reason here) Insight: Poor Judgment: Poor to fair Interventions PRN's used: PRN Nicotine and sore throat lozenges Therapeutic interventions: Introduced self and established rapport, maintained contract for safety, provided clear and simple instructions, reoriented to reality, monitored behaviors and need for intervention, encouraged independent performance of ADLs, and maintained Q 15 min safety checks. Restraints/seclusion/emergency medication: N/A Justification of Continued Inpatient Treatment: Pt. continues to require medication adjustments and a safe and supportive environment.
[2019-09-05] MEDS: NICOTINE POLACRILEX 2 MG LOZENGE BC PRN ×4 (04:16→20:47)
[2019-09-05 07:15] VITALS: BP 128/73
[2019-09-05] MEDS: tamsulosin 0.4mg capsule PO SCH (07:37)
[2019-09-05] MEDS: levoTHYROXINE 112mcg tablet PO SCH (07:38)
[2019-09-05] MEDS: pyridoxine 50mg tablet PO SCH (07:38)
[2019-09-05] MEDS: LORazepam 1 MG tablet PO PRN (07:38)
[2019-09-05] MEDS: multivitamins, therapeutics tablet PO SCH (07:38)
[2019-09-05] MEDS: sertraline 50mg tablet PO SCH (07:38)
[2019-09-05] MEDS: lactobacillus rhamnosus 10,000 MMU CELLS/CAPSULE PO SCH ×2 (07:38→20:46)
[2019-09-05] MEDS: lisinopril 10 MG tablet PO SCH (07:38)
[2019-09-05] MEDS: lamoTRIgine 25mg tablet PO SCH ×2 (07:38→20:51)
[2019-09-05] MEDS: nicotine 21mg patch - 24 hr TD SCH (07:39)
--- NOTE | 2019-09-05 16:33 | NUR ---
Nursing Progress Note Legal hold: LPS conserved Client on involuntary status GD Report received from CHERISE Lynn with use of SBAR Why are they here: Pt lost his placement at [place] after being hospitalized for a suspected stroke. Pt was diagnosed with a pneumonia and after being transferred to a series of hospitals was admitted to [facility]. PT is LPS conserved. Assessment What has happened this shift: Pt in bed at start of shift. Refused breakfast until almost 9am then decided to eat when most of the other patient's were no longer in the room. He was more visible on the unit today and advocating to get his needs met asking for nicotine lozenges when needed. S/I, H/I: Pt denies. A/VH: Pt denies Sleep: Up most of the shift ADL's: Independent; requires prompting Group attendance: yes Were Meds taken: Medication compliant Any med S/E: None observed or reported. Mental Status Exam Appearance: Disheveled, same dirty clothing as yesterday; refusing to shower or change clothes still Eye contact: Direct. Behavior: stubborn but calm Speech: normal rate and rhythm; circumstantial Mood: Apathetic Affect: flat Thought process: Tangential Thought Content: Delusional Cognition: Impaired, A/Ox3 Insight: Poor. Judgment: Poor. Interventions PRN's used: N/A Therapeutic interventions: 1:1 therapeutic assessment, limit setting, encouraged and prompted showers and group attendance, medication administration/education/monitoring, Q15 minute safety check. Justification of Continued Inpatient Treatment: LPS conserved, no current placement. Awaiting call back from Tong Gonzalez.
[2019-09-05 20:00] VITALS: BP 119/60
[2019-09-05] MEDS: quetiapine 100mg tablet PO SCH (20:47)
[2019-09-05] MEDS: traZODone 150mg tablet PO SCH (20:47)
--- NOTE | 2019-09-05 21:04 | NUR ---
Nursing Note: Pt. refuses to remove Nicotine Patch at HS.
--- NOTE | 2019-09-06 02:32 | NUR ---
Nursing Progress Note: Legal hold: LPS Client on involuntary status for GD Report received from nurse with use of SBAR: CHERISE Sampson Why are they here: Pt. lost his placement at [place] after being hospitalized for a suspected stroke. He was later diagnosed with a pneumonia, and after being transferred to a series of hospitals was admitted to [facility]. PT is LPS conserved. Assessment What has happened this shift: Pt. sitting in the Group Room finishing his dinner and watching TV at the beginning of the shift, he again presents as withdrawn and does not interact with others. Upon seeing staff he requests a PRN Nicotine Lozenge, and reports contentment. Pt. remains in the Group Room, attends snack, and then retreats to bed. 1:1 completed at bedside, he presents with flat affect and is guarded. Pt. denies any mental bong s/s and does not appear to be internally preoccupied. No grandiose or delusional statements made this shift. When questioned by this remote mortgage underwriter regarding showing and changing his clothing, pt. reports that he will do so tomorrow, will endorse to AM shift. Pt. requests a PRN throat lozenge at , administered with effectiveness. S/I, H/I: Denies A/VH: Denies, does not appear internally preoccupied Sleep: Pt. appears to be sleeping well ADL's: Requires some direction and prompting. Group attendance: Pt. attends snack, and reports he attended groups today. Were meds taken: Yes Any med S/E: None Mental Status Exam Appearance: Disheveled hair and clothing, he continues to refuse to change his clothes or shower Eye contact: Fair Behavior: Cooperative, guarded, and withdrawn Speech: WNL, responds only to questions Mood: Suppressed Affect: Flat Thought process: Poverty of thought Thought Content: Guarded, unable to assess Cognition: A&O X3 (not to reason here) Insight: Poor Judgment: Poor to fair Interventions PRN's used: PRN Nicotine and sore throat lozenge Therapeutic interventions: Maintained a safe and therapeutic environment, provided clear and simple instructions, reoriented to reality, monitored behaviors and need for intervention, encouraged independent performance of ADLs, and maintained Q 15 min safety checks. Restraints/seclusion/emergency medication: N/A Justification of Continued Inpatient Treatment: Pt. continues to require medication adjustments and a safe and supportive environment.
[2019-09-06] MEDS: NICOTINE POLACRILEX 2 MG LOZENGE BC PRN ×4 (03:52→20:35)
[2019-09-06] MEDS: benzocaine/menthol oral lozeng 1 EACH BOX MM PRN ×2 (03:52→12:20)
--- NOTE | 2019-09-06 04:30 | NUR ---
Nursing Note: Pt. awakens and requests to take a shower, able to complete task independently and changes into clean hospital attire. Bed changed.
[2019-09-06 07:30] VITALS: BP 101/68
[2019-09-06] MEDS: pyridoxine 50mg tablet PO SCH (08:07)
[2019-09-06] MEDS: multivitamins, therapeutics tablet PO SCH (08:07)
[2019-09-06] MEDS: levoTHYROXINE 112mcg tablet PO SCH (08:07)
[2019-09-06] MEDS: lactobacillus rhamnosus 10,000 MMU CELLS/CAPSULE PO SCH ×2 (08:07→20:33)
[2019-09-06] MEDS: sertraline 50mg tablet PO SCH (08:07)
[2019-09-06] MEDS: tamsulosin 0.4mg capsule PO SCH (08:07)
[2019-09-06] MEDS: lamoTRIgine 25mg tablet PO SCH ×2 (08:07→20:32)
[2019-09-06] MEDS: lisinopril 10 MG tablet PO SCH (08:08)
[2019-09-06] MEDS: nicotine 21mg patch - 24 hr TD SCH (08:19)
--- NOTE | 2019-09-06 09:57 | NUR ---
Reassessment: PO intake 75-100%, meeting nutrient needs. Last BM 09/04. Skin intact, no edema or wounds. No nutrition problems at this time. Will continue to follow. Recommend: 1. continue regular diet 2. bowel care as needed 3. weight per rx Addendum: 09/06/19 at 0957 by Wing Sadaf NELSON Amended: Links added. Addendum: 09/06/19 at [address] I have reviewed and agree with note by Cash Checker. Grace Rendon RD
--- NOTE | 2019-09-06 14:21 | NUR ---
Nursing Progress Note: [facility] Legal hold: LPS Client on involuntary status for GD Report received from nurse with use of SBAR: CHERISE Cerda Why are they here: Pt. lost his placement at [facility] after being hospitalized for a suspected stroke. He was later diagnosed with a pneumonia, and after being transferred to a series of hospitals was admitted to [facility]. PT is LPS conserved. Assessment What has happened this shift: Patient in small recreation room at change of shift. Observed to be in a heated conversation with another patient with a 3rd patient directing them to stop. This radio script writer stood between the two and instructed them both to stop talking with each other which was effective. Prior to breakfast while this radio script writer was getting coffee for another patient, patient was intrusive and pushed his way to get his own cup of coffee. He was directed away from the coffee cart, when he did not respond was redirected and became angry and verbally abusive. He later explained that the incident made him angry, validated his feelings and patient moved on to another activity. Accompanied others outside on the patio. S/I, H/I: Denies A/VH: Denies, does not appear internally preoccupied Sleep: 6.25 ADL's: Requires some direction and prompting. Group attendance: No Were meds taken: Yes Any med S/E: None Mental Status Exam Appearance: Disheveled hair and clothing, he continues to refuse to change his clothes or shower Eye contact: Fair Behavior: Cooperative, guarded, and withdrawn Speech: soft, pressured at times, normal rate Mood: liabile Affect: Flat Thought process: tangential Thought Content: I leaving today, taking a taxi, a bus, or a helicopter Cognition: A&O X3 (not to reason here) Insight: Poor Judgment: Poor to fair Interventions PRN's used: PRN Nicotine and sore throat lozenge Therapeutic interventions: Maintained a safe and therapeutic environment, provided clear and simple instructions, reoriented to reality, monitored behaviors and need for intervention, encouraged independent performance of ADLs, and maintained Q 15 min safety checks. Restraints/seclusion/emergency medication: N/A Justification of Continued Inpatient Treatment: Pt. continues to require medication adjustments and a safe and supportive environment.
[2019-09-06 20:02] VITALS: BP 96/54
[2019-09-06] MEDS: quetiapine 100mg tablet PO SCH (20:33)
[2019-09-06] MEDS: traZODone 150mg tablet PO SCH (20:33)
--- NOTE | 2019-09-07 01:24 | NUR ---
Nursing Progress Note: Legal hold: LPS Client on involuntary status for GD Report received from nurse with use of SBAR: CHERISE Sampson Why are they here: Pt. lost his placement at [facility] after being hospitalized for a suspected stroke. He was later diagnosed with a pneumonia, and after being transferred to a series of hospitals was admitted to [facility]. PT is LPS conserved. Assessment What has happened this shift: Pt is observed laying in bed with the light out, pt is awake and addresses this grant writer when she enters the room. When asked if pt was depressed "No, are you." Pt denies feeling depressed, SI, A/VH. Pt begins conversation "Carlie Aly came and visted me today, he is my first visitor." "We are going to [place]." Pt continues making remarks "I am leaving tomorrow to [place] in [place]." "Francisco Rodriguez's gave me the lópez to his penthouse." Pt is pleasant and cooperative with 1:1 and with medications. Pt gets up around 2100 looking for HS snack. Pt refused to take off Nicotine patch, pt was educated again on SE of leaving patch on. Pt's Seroquel was increased to 400mg starting tomorrow night (09/07/19). S/I, H/I: Pt denies. A/VH: Pt denies. Sleep: See Sleep Assessment note. Pt sleeping comfortably as of this writing. ADL's: Requires some direction and prompting. Group attendance: cage shift manager, no group. Pt did not attend HS snack. Were meds taken: Medication compliant. Any med S/E: None reported or observed. Mental Status Exam Appearance: Disheveled hair and clothing Eye contact: Fair Behavior: Cooperative, guarded, and withdrawn Speech: Clear, normal rate and rhythm Mood: Cooperative, fatigued, isolative Affect: Flat Thought process: Tangential, delusional Thought Content: "Carlie Aly came to visit me, my first visitor" Cognition: A&O X3 (not to reason here) Insight: Poor Judgment: Poor Interventions PRN's used: Nicotine lozenge Therapeutic interventions: Maintained a safe and therapeutic environment, provided clear and simple instructions, reoriented to reality, monitored behaviors and need for intervention, encouraged independent performance of ADLs, and maintained Q 15 min safety checks. Restraints/seclusion/emergency medication: N/A Justification of Continued Inpatient Treatment: Pt is LPS and is awaiting placement to [facility]. [facility] is assisting in placement.
[2019-09-07] MEDS: NICOTINE POLACRILEX 2 MG LOZENGE BC PRN ×3 (04:09→21:06)
[2019-09-07 08:00] VITALS: BP 82/50
[2019-09-07] MEDS: lisinopril 10 MG tablet PO SCH (08:00)
[2019-09-07] MEDS: multivitamins, therapeutics tablet PO SCH (08:11)
[2019-09-07] MEDS: levoTHYROXINE 112mcg tablet PO SCH (08:11)
[2019-09-07] MEDS: lactobacillus rhamnosus 10,000 MMU CELLS/CAPSULE PO SCH ×2 (08:11→21:06)
[2019-09-07] MEDS: tamsulosin 0.4mg capsule PO SCH (08:11)
[2019-09-07] MEDS: sertraline 50mg tablet PO SCH (08:11)
[2019-09-07] MEDS: lamoTRIgine 25mg tablet PO SCH ×2 (08:12→21:06)
[2019-09-07] MEDS: pyridoxine 50mg tablet PO SCH (08:12)
[2019-09-07] MEDS: nicotine 21mg patch - 24 hr TD SCH (08:16)
--- NOTE | 2019-09-07 15:14 | NUR ---
Nursing Progress Note: [facility] Legal hold: LPS Client on involuntary status for GD Report received from nurse with use of SBAR:Chely Guerrero RN Why are they here: Pt. lost his placement at [facility] after being hospitalized for a suspected stroke. He was later diagnosed with a pneumonia, and after being transferred to a series of hospitals was admitted to [facility]. PT is LPS conserved. Assessment What has happened this shift: Client was in bed to begin the shift. Amicable with medications as well as assessment. Lisinopril was held this am due to BP= 87/57 x 2. All other medications were given. Client remains confused and states, " I am leaving today, they are giving me an hour to eat". Client redirects but requires several prompts at times. Client was up in Group room during visiting hours and had to be directed to leave the room after an angry and profane outburst. He returned to his room and rested in his bed. Remains in his bed at 1257 hours. Client came out of his room for lunch but then went to his room to rest. (1343 hours). Client remains in bed with eyes closed and even, unlabored respirations noted. S/I, H/I: Pt denies. A/VH: Pt denies. Sleep: rested at times this shift. ADL's: Requires some direction and prompting. Group attendance: Were meds taken: Medication compliant. Any med S/E: None reported or observed. Mental Status Exam Appearance: Disheveled hair and clothing Eye contact: Fair Behavior: Cooperative, guarded, and intrusive. Speech: Clear, normal rate and rhythm Mood: Cooperative, fatigued, isolative Affect: Flat Thought process: Tangential, delusional Thought Content: "Carlie Aly came to visit me, my first visitor" Cognition: A&O X3 (not to reason here) Insight: Poor Judgment: Poor Interventions PRN's used: Therapeutic interventions: Maintained a safe and therapeutic environment, provided clear and simple instructions, reoriented to reality, monitored behaviors and need for intervention, encouraged independent performance of ADLs, and maintained Q 15 min safety checks. Restraints/seclusion/emergency medication: N/A Justification of Continued Inpatient Treatment: Pt is LPS and is awaiting placement to [place]. [place] [facility] is assisting in placement.
[2019-09-07] MEDS: benzocaine/menthol oral lozeng 1 EACH BOX MM PRN ×2 (16:29→22:46)
[2019-09-07 19:00] VITALS: BP 109/65
[2019-09-07] MEDS: quetiapine 100mg tablet PO SCH (21:06)
[2019-09-07] MEDS: traZODone 150mg tablet PO SCH (21:06)
--- NOTE | 2019-09-07 23:51 | NUR ---
Nursing Progress Note: Legal hold: LPS Client on involuntary status for GD Report received from nurse with use of SBAR: CHERISE Sampson Why are they here: Pt. lost his placement at [facility] after being hospitalized for a suspected stroke. He was later diagnosed with a pneumonia, and after being transferred to a series of hospitals was admitted to [facility]. PT is LPS conserved. Assessment What has happened this shift: Pt was in bed at shift change awake, but laying with his eyes open. Pt was cooperative with 1:1, which was completed at bedside. This casualty underwriter suggested to do a skin assessment, since pt hasn't showered and has been spending a lot of time in bed; pt refused both. Pt states "I will shower in the morning." Pt was databases computer consultant light requesting Nicotine and throat lozenge. Pt was up for HS snack then washed down his face and hair with water and retired to bed. S/I, H/I: Pt denies. A/VH: Pt denies. Sleep: See Sleep Assessment note. Pt sleeping comfortably as of this writing. ADL's: Requires some direction and prompting. Pt needs a shower. Group attendance: diesel fitter mechanic, no group. Were meds taken: Medication compliant. Any med S/E: None reported or observed. Mental Status Exam Appearance: Disheveled hair and clothing, needs shower Eye contact: Fair Behavior: Cooperative, isolative withdrawn Speech: Clear, normal rate and rhythm Mood: Cooperative, calm Affect: Flat Thought process: Tangential, delusional Thought Content: Delusional Cognition: A&O X3 (not to reason here) Insight: Poor Judgment: Poor Interventions PRN's used: Nicotine and throat lozenge Therapeutic interventions: Maintained a safe and therapeutic environment, provided clear and simple instructions, reoriented to reality, monitored behaviors and need for intervention, encouraged independent performance of ADLs, and maintained Q 15 min safety checks. Restraints/seclusion/emergency medication: N/A Justification of Continued Inpatient Treatment: Pt is LPS and is awaiting placement to [facility]. [facility] is assisting in placement.
[2019-09-08] MEDS: benzocaine/menthol oral lozeng 1 EACH BOX MM PRN (06:02)
[2019-09-08] MEDS: lactobacillus rhamnosus 10,000 MMU CELLS/CAPSULE PO SCH ×2 (07:44→20:20)
[2019-09-08] MEDS: lamoTRIgine 25mg tablet PO SCH ×2 (07:45→20:21)
[2019-09-08] MEDS: multivitamins, therapeutics tablet PO SCH (07:45)
[2019-09-08] MEDS: pyridoxine 50mg tablet PO SCH (07:45)
[2019-09-08] MEDS: tamsulosin 0.4mg capsule PO SCH (07:45)
[2019-09-08] MEDS: sertraline 50mg tablet PO SCH (07:45)
[2019-09-08] MEDS: levoTHYROXINE 112mcg tablet PO SCH (07:45)
[2019-09-08] MEDS: lisinopril 10 MG tablet PO SCH (07:46)
[2019-09-08] MEDS: nicotine 21mg patch - 24 hr TD SCH (07:46)
[2019-09-08 08:51] VITALS: BP 86/53
--- NOTE | 2019-09-08 16:51 | NUR ---
Nursing Progress Note: [facility] Legal hold: LPS Client on involuntary status for GD Report received from nurse with use of SBAR: Adrián RN Why are they here: Pt. lost his placement at [facility] after being hospitalized for a suspected stroke. He was later diagnosed with a pneumonia, and after being transferred to a series of hospitals was admitted to [facility]. PT is LPS conserved. Assessment What has happened this shift: Client showered this am and bed linens were changed. Client was amicable to am assessment as well as medications. Client came to group room for breakfast and has had no behavioral issues this shift. Lisinopril was not given due to systolic reading of 87. Client expressed no pain or medical issues and currently denies thoughts of harming self or others. Client woke up this afternoon and approached this investment underwriter in an angry manner asking, "where is my fucking lozenges". Client was redirected with success and the behaviors the rest of this shift were appropriate. Thought process and communication are still very delusional AEB, "Carlie Aly visited me and Jos[facility] Pride is coming next". S/I, H/I: Pt denies. A/VH: Pt denies. Sleep: 9 hours previous shift. ADL's: Requires some direction and prompting. Group attendance: yes Were meds taken: Medication compliant. Any med S/E: None reported or observed. Mental Status Exam Appearance: Disheveled hair and clothing, needs shower Eye contact: Fair Behavior: Cooperative, isolative withdrawn Speech: Clear, normal rate and rhythm Mood: Cooperative, calm Affect: Flat Thought process: Tangential, delusional Thought Content: Delusional Cognition: A&O X3 (not to reason here) Insight: Poor Judgment: Poor Interventions PRN's used: Nicotine and throat lozenge Therapeutic interventions: Maintained a safe and therapeutic environment, provided clear and simple instructions, reoriented to reality, monitored behaviors and need for intervention, encouraged independent performance of ADLs, and maintained Q 15 min safety checks. Restraints/seclusion/emergency medication: N/A Justification of Continued Inpatient Treatment: Pt is LPS and is awaiting placement to [facility]. [facility] Guardian is assisting in placement.
[2019-09-08 19:42] VITALS: BP 96/56
[2019-09-08] MEDS: quetiapine 100mg tablet PO SCH (20:20)
[2019-09-08] MEDS: traZODone 150mg tablet PO SCH (20:21)
--- NOTE | 2019-09-08 23:48 | NUR ---
Nursing Progress Note: Legal hold: LPS Client on involuntary status for GD Report received from nurse with use of SBAR: Adrián RN Why are they here: Pt. lost his placement at [facility] after being hospitalized for a suspected stroke. He was later diagnosed with a pneumonia, and after being transferred to a series of hospitals was admitted to [facility]. PT is LPS conserved. Assessment What has happened this shift: Pt was in group room swearing at other pt's at change of shift. pt was only mildly cooperative for 1:1 and told t his rn to "fuck off" multiple times. pt was labile during the evening with a couple outbursts of swearing to staff and pt's. pt went to bed after snack. S/I, H/I: Pt denies. A/VH: Pt denies. Sleep: See Sleep Assessment note. Pt sleeping comfortably as of this writing. ADL's: Pt needs a shower. Group attendance: shift supervisor melting, no group. Were meds taken: Medication compliant. Any med S/E: None reported or observed. Mental Status Exam Appearance: Disheveled hair and clothing, needs shower Eye contact: Fair Behavior: Cooperative, isolative withdrawn Speech: Clear, normal rate and rhythm Mood: labile Affect: Flat Thought process: Tangential, delusional Thought Content: Delusional Cognition: A&O X3 (not to reason here) Insight: Poor Judgment: Poor Interventions PRN's used: none Therapeutic interventions: Maintained a safe and therapeutic environment, provided clear and simple instructions, reoriented to reality, monitored behaviors and need for intervention, encouraged independent performance of ADLs, and maintained Q 15 min safety checks. Restraints/seclusion/emergency medication: N/A Justification of Continued Inpatient Treatment: Pt is LPS and is awaiting placement to [facility]. [facility] Public Guardian is assisting in placement.
[2019-09-09] MEDS: benzocaine/menthol oral lozeng 1 EACH BOX MM PRN ×2 (03:59→10:39)
[2019-09-09] MEDS: NICOTINE POLACRILEX 2 MG LOZENGE BC PRN ×2 (03:59→09:01)
[2019-09-09 07:38] VITALS: BP 103/63
[2019-09-09] MEDS: lactobacillus rhamnosus 10,000 MMU CELLS/CAPSULE PO SCH ×2 (08:23→20:17)
[2019-09-09] MEDS: nicotine 21mg patch - 24 hr TD SCH (08:23)
[2019-09-09] MEDS: lamoTRIgine 25mg tablet PO SCH ×2 (08:23→20:17)
[2019-09-09] MEDS: levoTHYROXINE 112mcg tablet PO SCH (08:24)
[2019-09-09] MEDS: tamsulosin 0.4mg capsule PO SCH (08:24)
[2019-09-09] MEDS: sertraline 50mg tablet PO SCH (08:25)
[2019-09-09] MEDS: multivitamins, therapeutics tablet PO SCH (08:25)
[2019-09-09] MEDS: pyridoxine 50mg tablet PO SCH (08:26)
[2019-09-09] MEDS: lisinopril 10 MG tablet PO SCH (08:26)
--- NOTE | 2019-09-09 08:41 | NUR ---
DISCHARGE PLANNING Called Angela Christopher (Phone# [phone]) with [facility] to see if there is an update on Ct's placement. Left message requesting a call back. She has yet to return journalists and other writers's calls. VERONIQUE Finney
--- NOTE | 2019-09-09 08:45 | NUR ---
DISCHARGE PLANNING Called [facility] (ph# [phone]-direct line) and left a message requesting a call back regarding placement. VERONIQUE Finney
--- NOTE | 2019-09-09 11:30 | NUR ---
Nursing Progress Note: [facility] Legal hold: LPS Client on involuntary status for GD Report received from nurse with use of SBAR: CHERISE Gustafson Why are they here: Pt. lost his placement at [facility] after being hospitalized for a suspected stroke. He was later diagnosed with a pneumonia, and after being transferred to a series of hospitals was admitted to [facility]. PT is LPS conserved. Assessment What has happened this shift: Patient was asleep at change of shift and up for breakfast. RN gave patient his medication in his room without incident. Patient denies suicidal ideation, hallucinations. Patient has been pleasant this morning and requesting medication from his bed using the call ortega. Patient has been in bed except for breakfast. Patient stayed in bed for morning group. Patient is LPS conserved and awaiting re-placement since he lost his place at [facility]. S/I, H/I: Pt denies. A/VH: Pt denies. Sleep: napped a lot today. ADL's: Requires some direction and prompting. Group attendance: no Were meds taken: Medication compliant. Any med S/E: None reported or observed. Mental Status Exam Appearance: Disheveled hair and clothing, needs shower Eye contact: Good Behavior: Cooperative, isolates Speech: Clear, normal rate and rhythm Mood: Cooperative, calm Affect: Pleasant Thought process: Tangential Thought Content: Cognition: A&O X3 (not to reason here) Insight: Poor Judgment: Poor Interventions PRN's used: Nicotine and throat lozenge Therapeutic interventions: Maintained a safe and therapeutic environment, provided clear and simple instructions, reoriented to reality, monitored behaviors and need for intervention, encouraged independent performance of ADLs, and maintained Q 15 min safety checks. Restraints/seclusion/emergency medication: N/A Justification of Continued Inpatient Treatment: Pt is LPS and is awaiting placement to [place]. [place] [facility] is assisting in placement.
[2019-09-09] MEDS: traZODone 150mg tablet PO SCH (20:17)
[2019-09-09] MEDS: quetiapine 100mg tablet PO SCH (20:18)
[2019-09-09 20:41] VITALS: BP 100/62
--- NOTE | 2019-09-09 22:12 | NUR ---
Nursing Progress Note: Legal hold: LPS Client on involuntary status for GD Report received from nurse with use of SBAR: CHERISE Sampson Why are they here: Pt. lost his placement at [facility] after being hospitalized for a suspected stroke. He was later diagnosed with a pneumonia, and after being transferred to a series of hospitals was admitted to [facility]. PT is LPS conserved. Assessment What has happened this shift: The patient was found in bed at shift change. He is awake and cooperative for 1:1. The patient is laying in bed with covers up to his chin. He continues to have grandiose ideas, "I always get what I wish for, I know God," and persecutory, "people keep trying to challenge me." The patient spent the evening in bed. He made no outbursts at staff. The patient still awaits placement, "the hospital told me not to come back, it's not my fault I'm still here." The patient went back to sleep after HS med pass. S/I, H/I: Denies A/VH: Denies Sleep: See Sleep hours. ADL's: Independent, needs prompting. Group attendance: night shift, no group. Were meds taken: Yes. Any med S/E: None reported or observed. Mental Status Exam Appearance: Disheveled hair and clothing, , unclean, needs shower. Eye contact: Fair Behavior: Cooperative, isolative. Speech: Clear, normal rate and rhythm Mood: labile Affect: Blunted Thought process: Tangential, delusional Thought Content: Delusional Cognition: A&O X3 (not to reason here) Insight: Poor Judgment: Poor Interventions PRN's used: none Therapeutic interventions: Maintained a safe and therapeutic environment, provided clear and simple instructions, reoriented to reality, monitored behaviors and need for intervention, encouraged independent performance of ADLs, and maintained Q 15 min safety checks. Restraints/seclusion/emergency medication: N/A Justification of Continued Inpatient Treatment: Pt is LPS and is awaiting placement to [facility]. [facility] Public Guardian is assisting in placement.
[2019-09-10] MEDS: lisinopril 10 MG tablet PO SCH (08:00)
[2019-09-10] MEDS: levoTHYROXINE 112mcg tablet PO SCH (08:04)
[2019-09-10] MEDS: nicotine 21mg patch - 24 hr TD SCH (08:04)
[2019-09-10] MEDS: lamoTRIgine 25mg tablet PO SCH ×2 (08:05→20:30)
[2019-09-10] MEDS: multivitamins, therapeutics tablet PO SCH (08:06)
[2019-09-10] MEDS: tamsulosin 0.4mg capsule PO SCH (08:06)
[2019-09-10] MEDS: pyridoxine 50mg tablet PO SCH (08:07)
[2019-09-10] MEDS: sertraline 50mg tablet PO SCH (08:07)
[2019-09-10] MEDS: lactobacillus rhamnosus 10,000 MMU CELLS/CAPSULE PO SCH ×2 (08:07→20:30)
[2019-09-10 08:14] VITALS: BP 96/55
--- NOTE | 2019-09-10 08:51 | NUR ---
DISCHARGE PLANNING Called [place] [facility] (ph# [phone]-direct line) who referred publications writer to call Stefano Barrett at [facility] (ph# [phone]) to inquire about placement. Left Stefano a message requesting a call back. VERONIQUE Finney
[2019-09-10] MEDS: benzocaine/menthol oral lozeng 1 EACH BOX MM PRN (09:37)
--- NOTE | 2019-09-10 15:24 | NUR ---
DISCHARGE PLANNING Stefano Barrett at [facility] (ph# [phone]) returned teletypewriter operator's call. He reported Angela Christopher has been out of the office the last 2 weeks which is why she has not returned teletypewriter operator's call. Stefano reported Ct's packet is out at various placements and [facility] has requested additional information. He reported he will keep teletypewriter operator apprised. VERONIQUE Finney
--- NOTE | 2019-09-10 17:56 | NUR ---
Nursing Progress Note: [facility] Legal hold: [facility] Client on involuntary status for GD Report received from nurse with use of SBAR: SANDY Lynn Why are they here: Pt. lost his placement at [facility] after being hospitalized for a suspected stroke. He was later diagnosed with a pneumonia, and after being transferred to a series of hospitals was admitted to [facility]. PT is LPS conserved. Assessment What has happened this shift: Patient was asleep at change of shift and awoken for breakfast. RN gave patient his medication in his room without incident. Patient denies suicidal ideation, hallucinations. Patient spends most of his day in bed. Patient came to RN and stated "I want that tech fired and if you don't fire him I'm going to call Trump and have him fired! And don't you think that I don't know Trump, because I do. Patient did calm down and RN went back into patient's room to talk to him. Patient went in and out of group today. Patient needs a shower and has greasy hair. Patient is LPS conserved and awaiting re-placement since he lost his place at [facility]. S/I, H/I: Pt denies. A/VH: Pt denies. Sleep: napped a lot today. ADL's: Requires prompting and direction. Group attendance: In and out of group Were meds taken: Medication compliant. Any med S/E: None reported or observed. Mental Status Exam Appearance: Disheveled hair and clothing, greasy hair, needs shower Eye contact: Good Behavior: Cooperative, isolates, Labile Speech: Clear, normal rate and rhythm Mood: Cooperative, Labile Affect: Pleasant Thought process: Tangential Thought Content: Delusional thinking Cognition: A&O X3 (not to reason here) Insight: Poor Judgment: Poor Interventions PRN's used: throat lozenge Therapeutic interventions: Maintained a safe and therapeutic environment, provided clear and simple instructions, reoriented to reality, monitored behaviors and need for intervention, encouraged independent performance of ADLs, and maintained Q 15 min safety checks. Restraints/seclusion/emergency medication: N/A Justification of Continued Inpatient Treatment: Pt is LPS and is awaiting placement to [facility]. [facility] Guardian is assisting in placement.
[2019-09-10 20:21] VITALS: BP 111/74
[2019-09-10] MEDS: traZODone 150mg tablet PO SCH (20:30)
[2019-09-10] MEDS: quetiapine 100mg tablet PO SCH (20:31)
[2019-09-10] MEDS: NICOTINE POLACRILEX 2 MG LOZENGE BC PRN (20:31)
--- NOTE | 2019-09-10 23:47 | NUR ---
Nursing Progress Note: Legal hold: LPS Client on involuntary status for GD Report received from nurse with use of SBAR: CHERISE Sampson Why are they here: Pt. lost his placement at [facility] after being hospitalized for a suspected stroke. He was later diagnosed with a pneumonia, and after being transferred to a series of hospitals was admitted to [facility]. PT is LPS conserved. Assessment What has happened this shift: The patient was found in his bed. 1:1 completed at bedside. The patient reports that if he wants to sleep all day, nobody can stop him, "this is my room, I own it, I'll show you the papers." He continues to voice delusions, "I was in [place]. I had to eat Cockroaches to survive. I for you." The patient has greasy hair, and was offered a shower, but declined. "I don't have to shower, you can't make me. In fact, I'm never taking another shower." The patient remained in bed all shift, took HS meds, then back to sleep. S/I, H/I: Denies A/VH: Denies Sleep: See Sleep hours. ADL's: Independent, needs prompting. Group attendance: armament installer, no group. Were meds taken: Yes. Any med S/E: None reported or observed. Mental Status Exam Appearance: Disheveled, greasy hair and clothing, unclean, needs shower. Eye contact: Fair Behavior: Withdrawn, isolative, irritable. Speech: Clear, normal rate and rhythm Mood: labile Affect: Constricted Thought process: Tangential, delusional Thought Content: Delusional Cognition: A&O X3 (not to reason here) Insight: Poor Judgment: Poor Interventions PRN's used: none Therapeutic interventions: Maintained a safe and therapeutic environment, provided clear and simple instructions, reoriented to reality, monitored behaviors and need for intervention, encouraged independent performance of ADLs, and maintained Q 15 min safety checks. Restraints/seclusion/emergency medication: N/A Justification of Continued Inpatient Treatment: Pt is LPS and is awaiting placement to [facility]. [facility] Public Guardian is assisting in placement.
[2019-09-11] MEDS: lisinopril 10 MG tablet PO SCH (07:35)
[2019-09-11] MEDS: levoTHYROXINE 112mcg tablet PO SCH (07:35)
[2019-09-11] MEDS: lactobacillus rhamnosus 10,000 MMU CELLS/CAPSULE PO SCH ×2 (07:35→20:21)
[2019-09-11] MEDS: tamsulosin 0.4mg capsule PO SCH (07:36)
[2019-09-11] MEDS: pyridoxine 50mg tablet PO SCH (07:36)
[2019-09-11] MEDS: multivitamins, therapeutics tablet PO SCH (07:36)
[2019-09-11] MEDS: sertraline 50mg tablet PO SCH (07:36)
[2019-09-11] MEDS: lamoTRIgine 25mg tablet PO SCH ×2 (07:36→20:21)
[2019-09-11] MEDS: nicotine 21mg patch - 24 hr TD SCH (07:37)
[2019-09-11 08:00] VITALS: BP 97/60
--- NOTE | 2019-09-11 14:33 | NUR ---
Nursing Progress Note: Ryley Legal hold: LPS Client on involuntary status for GD Report received from nurse with use of SBAR: Leah RN Why are they here: Pt. lost his placement at [place] after being hospitalized for a suspected stroke. He was later diagnosed with a pneumonia, and after being transferred to a series of hospitals was admitted to [facility]. PT is LPS conserved. Assessment What has happened this shift: Client in bed to begin the shift. Client was angry and was verbally aggressive with technical proposal writer at medication/assessment time this am. Client was redirected and took his medications without further issues. Client also announced that he would not shower today stating, " I told them I would not shower the rest of the time I stay here". At 830 hours today, client showered after prompts x 2. Client is very angry and has been telling Techs and this technical proposal writer to, "Fuck off" and client also told this technical proposal writer, " I will kill you before the end of the day". Client refused to redirect and seems very hostile and aggressive towards all members of the Staff today. Refused PRN medication stating. " Fuck you, I will make you take it". Client summoned Staff with call light about 1100 hours today. This technical proposal writer responded and discovered client hiding behind privacy curtain with his fist clenched as if to strike. Client was redirected without incident and he returned to his bed to rest.At 1200 hours, client in his room resting and refuses PRN medication again. Client had medication held this am due to low BP. Client is currently resting in bed with eyes closed(1432 hours). S/I, H/I: Denies A/VH: Denies Sleep: 5.5 ADL's: Independent, needs prompting. Group attendance: not today Were meds taken: Yes. Any med S/E: None reported or observed. Mental Status Exam Appearance: Improved after shower Eye contact: Fair Behavior: Withdrawn, isolative, irritable. Speech: Clear, normal rate and rhythm Mood: labile Affect: Constricted Thought process: Tangential, delusional Thought Content: Delusional Cognition: A&O X3 (not to reason here) Insight: Poor Judgment: Poor Interventions PRN's used: none Therapeutic interventions: Maintained a safe and therapeutic environment, provided clear and simple instructions, reoriented to reality, monitored behaviors and need for intervention, encouraged independent performance of ADLs, and maintained Q 15 min safety checks. Restraints/seclusion/emergency medication: N/A Justification of Continued Inpatient Treatment: Pt is LPS and is awaiting placement to [facility]. [facility] is assisting in placement.
[2019-09-11] MEDS: NICOTINE POLACRILEX 2 MG LOZENGE BC PRN (19:09)
[2019-09-11] MEDS: traZODone 150mg tablet PO SCH (20:21)
[2019-09-11] MEDS: quetiapine 100mg tablet PO SCH (20:22)
--- NOTE | 2019-09-11 22:11 | NUR ---
Nursing Progress Note: Legal hold: LPS Client on involuntary status for GD Report received from nurse with use of SBAR: CHERISE Blanchard Why are they here: Pt. lost his placement at [place] after being hospitalized for a suspected stroke. He was later diagnosed with a pneumonia, and after being transferred to a series of hospitals was admitted to [facility]. PT is LPS conserved. Assessment What has happened this shift: The patient was isolative to his room but he did come out to get an evening snack and then approached the other patient's watching TV in the rec room and asked the other patient's to change the channel to the People[employer] Choice Awards that was on approximately two weeks ago. He was cooperative with the evening assessment. He was very hyperverbal and his replies to the assessment questions were disorganized and tangential and contained delusional beliefs. He claims to have known famous TV characters. He believed that he is moving into a new home and that he is planning a house warming. He denies anxiety. He denied auditory and visual hallucinations. He reports his mood is good. He denies the need for psychiatric medications. S/I, H/I: Denies A/VH: Denies Sleep: ADL's: Independent, needs prompting. Group attendance: Were meds taken: Yes. Any med S/E: None reported or observed. Mental Status Exam Appearance: Disheveled but clean Eye contact: Fair Behavior: Withdrawn, isolative, irritable. Speech: Clear, normal rate and rhythm, spontaneous Mood: labile Affect: Constricted Thought process: Tangential, delusional Thought Content: Delusional Cognition: A&O X3 Insight: Poor Judgment: Poor Interventions PRN's used: Nicotine lozenge Therapeutic interventions: Maintained a safe and therapeutic environment, provided clear and simple instructions, reoriented to reality, monitored behaviors and need for intervention, encouraged independent performance of ADLs, and maintained Q 15 min safety checks. Restraints/seclusion/emergency medication: N/A Justification of Continued Inpatient Treatment: Pt is LPS and is awaiting placement to [place]. [place] Public Guardian is assisting in placement.
--- NOTE | 2019-09-12 07:20 | NUR ---
Left message with Stefano Barrett at [facility] (ph# [phone]) to inquire if they have any knowledge of what medications might be helpful for Ct. VERONIQUE Finney
[2019-09-12 07:30] VITALS: BP 103/61
[2019-09-12] MEDS: lactobacillus rhamnosus 10,000 MMU CELLS/CAPSULE PO SCH ×2 (08:17→20:21)
[2019-09-12] MEDS: levoTHYROXINE 112mcg tablet PO SCH (08:17)
[2019-09-12] MEDS: tamsulosin 0.4mg capsule PO SCH (08:17)
[2019-09-12] MEDS: lisinopril 10 MG tablet PO SCH (08:17)
[2019-09-12] MEDS: multivitamins, therapeutics tablet PO SCH (08:17)
[2019-09-12] MEDS: quetiapine 100mg tablet PO SCH ×3 (08:17→20:22)
[2019-09-12] MEDS: sertraline 50mg tablet PO SCH (08:18)
[2019-09-12] MEDS: lamoTRIgine 25mg tablet PO SCH ×2 (08:18→20:23)
[2019-09-12] MEDS: pyridoxine 50mg tablet PO SCH (08:18)
[2019-09-12] MEDS: nicotine 21mg patch - 24 hr TD SCH (08:22)
--- NOTE | 2019-09-12 09:35 | NUR ---
Reassessment: Pt PO 75-100% avg meals meeting needs. LBM 09/11. No nutrition concerns at this time. Will continue to monitor. Recommend: 1. continue regular diet 2. bowel care as needed 3. weight per rx Addendum: 09/12/19 at [address] Amended: Links added.
[2019-09-12] MEDS: NICOTINE POLACRILEX 2 MG LOZENGE BC PRN ×3 (09:42→17:26)
--- NOTE | 2019-09-12 15:05 | NUR ---
Nursing Progress Note: Legal hold: LPS Conserved Client on involuntary status for GD Report received from nurse with use of SBAR: Leah RN Why are they here: Pt. lost his placement at [place] after being hospitalized for a suspected stroke. He was later diagnosed with a pneumonia, and after being transferred to a series of hospitals was admitted to [facility]. PT is LPS conserved. Assessment What has happened this shift: Pt denied depression, SI/HI/AH/VH. Pt stated that Zoloft was good, that sometimes it triggers michelle, "I like being manic." Pt delusional stated that some doctor gave him too much [place] and it messed his thyroid up so now he has to take thyroid medicine for the rest of his life. Pt stated that the doctor who had done this to him wants to give him a pair of snakeskin boots but he doesn't need boots, he might take them anyway cause at least the doctor tried. Pt is intrusive and irritable at times. Pt showered today and was mostly pleasant and easily redirectable. S/I, H/I: Pt denies A/VH: Pt denies Sleep: slept 8.5 hours per noc shift report ADL's: Independent with prompting Group attendance: Yes Were meds taken: Yes. Any med S/E: None reported or observed. Mental Status Exam Appearance: Somewhat disheveled man with longish hair and beards. Eye contact: Good Behavior: Cooperative, irritable, intrusive at times, easily frustrated Speech: Clear, audible, normal rate & rhythm Mood: mostly good with periods of irritability Affect: WNL Thought process: Delusional Thought Content: He likes being manic, he thinks [place] caused his hypothyroidism Cognition: A&O X3 Insight: Poor Judgment: Poor Interventions PRN's used: Nicotine lozenges Therapeutic interventions: 1:1 assessment, establishment of rapport, medication adminstration/monitoring/education, encouragement to perform personal hygiene, monitored behaviors and need for intervention, redirection, reality orientation, and maintained Q 15 min safety checks. Restraints/seclusion/emergency medication: N/A Justification of Continued Inpatient Treatment: Pt is LPS and is awaiting placement from [facility] Public Guardian is assisting in placement.
[2019-09-12] MEDS: benzocaine/menthol oral lozeng 1 EACH BOX MM PRN (19:31)
[2019-09-12] MEDS: traZODone 150mg tablet PO SCH (20:23)
--- NOTE | 2019-09-12 23:36 | NUR ---
Nursing Progress Note: Legal hold: LPS Conserved Client on involuntary status for GD Report received from nurse with use of SBAR: Lo RN Why are they here: Pt. lost his placement at [place] after being hospitalized for a suspected stroke. He was later diagnosed with a pneumonia, and after being transferred to a series of hospitals was admitted to [facility]. PT is LPS conserved. Assessment What has happened this shift: Pt denied depression, SI/HI/AH/VH. Pt delusional, stated that one of the techs is out to make his day harder, and that he has given this staff member 5 chances to remedy his behavior. "I wrote an agreement and I know the director will take a look and sort it out, just like last time." Pt relayed a couple stories from his "drinking days". He was hyperverbal and also spoke at length about God and how yazidi is the way "to get the help one needs." Pt isolated to room for entire shift, declining HS Snack. He was medication compliant. S/I, H/I: Denies A/VH: Denies Sleep: See Sleep Assessment ADL's: Independent with prompting Group attendance: N/A Were meds taken: Yes Any med S/E: None reported nor observed. Mental Status Exam Appearance: Wearing unit scrubs and nonskid socks, pt has a bliss and long hair Eye contact: Direct Behavior: Cooperative, Isolated to room Speech: Clear, audible, normal rate & rhythm Mood: "I'm feeling fine" Affect: Blunted Thought process: Delusional Thought Content: Various bar stories from his past, God Cognition: A/Ox3 (off for circumstance) Insight: Poor Judgment: Poor Interventions PRN's used: Chloraseptic Lozenge Therapeutic interventions: 1:1 assessment, establishment of rapport, medication adminstration/monitoring/education, encouragement to perform personal hygiene, monitored behaviors and need for intervention, redirection, reality orientation, and maintained Q 15 min safety checks. Restraints/seclusion/emergency medication: N/A Justification of Continued Inpatient Treatment: Pt is LPS and is awaiting placement from [facility] Public Guardian is assisting in placement.
[2019-09-13] MEDS: NICOTINE POLACRILEX 2 MG LOZENGE BC PRN ×3 (03:29→19:59)
[2019-09-13] MEDS: benzocaine/menthol oral lozeng 1 EACH BOX MM PRN ×4 (05:40→19:59)
[2019-09-13] MEDS: tamsulosin 0.4mg capsule PO SCH (07:49)
[2019-09-13] MEDS: sertraline 50mg tablet PO SCH (07:49)
[2019-09-13] MEDS: pyridoxine 50mg tablet PO SCH (07:49)
[2019-09-13] MEDS: lactobacillus rhamnosus 10,000 MMU CELLS/CAPSULE PO SCH ×2 (07:49→20:52)
[2019-09-13] MEDS: multivitamins, therapeutics tablet PO SCH (07:49)
[2019-09-13] MEDS: levoTHYROXINE 112mcg tablet PO SCH (07:49)
[2019-09-13] MEDS: quetiapine 100mg tablet PO SCH ×3 (07:49→20:51)
[2019-09-13] MEDS: lamoTRIgine 25mg tablet PO SCH ×2 (07:49→20:51)
[2019-09-13] MEDS: lisinopril 10 MG tablet PO SCH (07:55)
[2019-09-13] MEDS: nicotine 21mg patch - 24 hr TD SCH (07:56)
[2019-09-13 08:00] VITALS: BP_SYST 100; BP_SYST 86; BP_DIAS 56; BP_DIAS 64
--- NOTE | 2019-09-13 16:09 | NUR ---
Nursing Progress Note: Legal hold: LPS Conserved Client on involuntary status for GD Report received from nurse with use of SBAR: CHERISE Shipley Why are they here: Pt. lost his placement at [place] after being hospitalized for a suspected stroke. He was later diagnosed with a pneumonia, and after being transferred to a series of hospitals was admitted to [facility]. PT is LPS conserved. Assessment What has happened this shift: Pt denied depression, anxiety, SI/HI/AH/VH. Pt requested a Chloraseptic lozenge during breakfast, encouraged him to wait until after breakfast as his food was here. Pt was agreeable. Lozenge given at 0825, pt appreciative, stated, "thank you, I like you." Pt was resistive to having his BP rechecked this morning as the initial one was a little low. He declined to allow two different client relationship consultant to check it until asked by this RN. Pt seems to enjoy giving the techs a hard time. PCT reported that he walked out of his room this morning with no shirt on directly in front of him. Another PCT reported that pt's sweatpants were too large and he was having to hold them up as he was walking. Per report, pt's pants had actually fallen down exposing him a couple of times. He had been asked by the techs numerous times to change into some appropriately sized scrub pants but had refused to cooperate. This RN asked PCT to look through clothing on the unit and down in ER overflow closet to find a few alternate pairs of the correct size pants and offer some choices to the pt. This was done and pt picked out a couple of pairs. Unfortunately, one pair he picked out was still too large in the waist as well as short in length. Pt again observed walking around holding his pants up. Pt walks around barefoot, refused to wear nonskid socks, occasionally will wear what looks like a pair of lady's slip on ballet type slippers. Pt perseverates at times on lozenges both Chloraseptic and nicotine lozenges. He will approach this RN and ask, "is it time?" This RN will ask the pt , "time for what?" Pt will reply, "the pills, both pills" meaning both lozenges which he requests at the same time. Explained to pt numerous times that he needs to take only one of them at a time. Pt stated to this RN, "I don't like rules." Pt would smile and then cooperate after making oppositional type statements. Pt continued to joke with this RN throughout the shift, he seems to enjoy the attention of the nurses particularly female nurses. Pt stated to this RN, "I think I'm a bit older than you, have you ever heard of 'respect your elders?" He went on to say, 'You know, I was thinkin' we're all here for a reason, I'm here for a reason, you're here for a reason, I'm here to lift you up, you're here to lift me up." S/I, H/I: Pt denies A/VH: Pt denies Sleep: slept 7 hours per noc shift report ADL's: Independent with prompting for personal hygiene and appropriate dress Group attendance: Yes Were meds taken: Yes. Any med S/E: None reported or observed. Mental Status Exam Appearance: Somewhat disheveled man with longish hair and bliss walking around barefoot, holding his too large pants up. Eye contact: Good Behavior: Resistive to care at times though does end up eventually cooperating with encouragement. Speech: Clear, audible, normal rate & rhythm, talkative Mood: Elevated Affect: Animated Thought process: reality distortion Thought Content: He doesn't like rules or shoes or pants that fit. Cognition: A&O X3 Insight: Poor Judgment: Poor Interventions PRN's used: Nicotine lozenges, Chloraseptic lozenges Therapeutic interventions: 1:1 assessment, active listening, therapeutic conversation, medication administration/monitoring/education, encouragement to perform personal hygiene, monitored behaviors and need for intervention, redirection, reality orientation, limit setting, positive reinforcement, Q 15 min safety checks. Restraints/seclusion/emergency medication: N/A Justification of Continued Inpatient Treatment: Pt is LPS and is awaiting placement from [facility] Public Guardian is assisting in placement.
[2019-09-13 19:00] VITALS: BP 100/65
[2019-09-13] MEDS: traZODone 150mg tablet PO SCH (20:51)
--- NOTE | 2019-09-14 00:06 | NUR ---
Nursing Progress Note: Legal hold: LPS Conserved Client on involuntary status for GD Report received from nurse with use of SBAR: CHERISE Blanchard Why are they here: Pt. lost his placement at [place] after being hospitalized for a suspected stroke. He was later diagnosed with a pneumonia, and after being transferred to a series of hospitals was admitted to [facility]. PT is LPS conserved. Assessment What has happened this shift: This patient is self isolating in his room. He presents as well oriented, he is somewhat unkept. Staff has been encouraging this patient to shower and groom self more often. The patient tells this tag writer that he ids feeling good. Patient denies S/I, H/I, he denies any hallucinations. Patient denies depression. Patient expresses feeling quite happy. 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 The patient frequently request throat lozenges and nicotine lozenges. Patient desires to leave his nicotine patch in place. He denies having bad dreams with the patch on, in fact "I have more vivid dreams with the patch on, when I awake I'm still thinking I'm dreaming sometime." The patient is cooperative with staff. He is medication compliant. S/I, H/I: Pt denies. A/VH: Pt denies Sleep: Will tally at 0500 hours. ADL's: Independent with prompting for personal hygiene and appropriate dress. Group attendance: Yes, on day shift. Were meds taken: Patient is medication compliant. Any med S/E: None reported or observed. Mental Status Exam Appearance: Patient is disheveled, pants are to large, can use more prompting with personal hygene.l Eye contact: Good Behavior: Resistive to care at times though does end up eventually cooperating with encouragement. Speech: Clear, audible, normal rate & rhythm. Mood: Elevated Affect: Animated Thought process: Reality distortion, (noted from day shift,) this tag writer agrees. Thought Content:Patient focusing on going home. Cognition: Oriented to person, place, time, somewhat to situation. Insight: Poor Judgment: Poor Interventions PRN's used: Nicotine lozenges, Chloraseptic lozenges Therapeutic interventions: 1:1 assessment, active listening, therapeutic conversation, medication administration/monitoring/education, encouragement to perform personal hygiene, monitored behaviors and need for intervention, redirection, reality orientation, limit setting, positive reinforcement, Q 15 min safety checks. Restraints/seclusion/emergency medication: N/A Justification of Continued Inpatient Treatment: Pt is LPS and is awaiting placement from [place] Public Guardian is assisting in placement.
[2019-09-14 08:00] VITALS: BP 108/73
[2019-09-14] MEDS: lactobacillus rhamnosus 10,000 MMU CELLS/CAPSULE PO SCH ×2 (08:12→21:17)
[2019-09-14] MEDS: lamoTRIgine 25mg tablet PO SCH ×2 (08:12→21:17)
[2019-09-14] MEDS: lisinopril 10 MG tablet PO SCH (08:12)
[2019-09-14] MEDS: sertraline 50mg tablet PO SCH (08:13)
[2019-09-14] MEDS: multivitamins, therapeutics tablet PO SCH (08:13)
[2019-09-14] MEDS: levoTHYROXINE 112mcg tablet PO SCH (08:13)
[2019-09-14] MEDS: nicotine 21mg patch - 24 hr TD SCH (08:13)
[2019-09-14] MEDS: quetiapine 100mg tablet PO SCH ×3 (08:13→21:16)
[2019-09-14] MEDS: tamsulosin 0.4mg capsule PO SCH (08:13)
[2019-09-14] MEDS: pyridoxine 50mg tablet PO SCH (08:14)
--- NOTE | 2019-09-14 17:11 | NUR ---
Nursing Progress Note Legal hold: LPS Conserved Client on involuntary status for GD Report received from nurse with use of SBAR: Chely Muñoz RN Why are they here: Pt. lost his placement at [place] after being hospitalized for a suspected stroke. He was later diagnosed with a pneumonia, and after being transferred to a series of hospitals was admitted to [facility]. PT is LPS conserved. Assessment What has happened this shift: Patient asleep at shift change. Awake for breakfast and medi cations, then back to bed. Pt. awakened just before noon to drink coffee and 1:1 with RN. Pt. states that he is depressed and that he tells the truth when he is depressed. Reports that his "idol" is Luis M Kaminski. States that he knows that he is going to hell because he has abused the gifts that God has given him. S/I, H/I: Pt denies A/VH: Pt denies Sleep: slept 7 hours per noc shift report ADL's: Independent with prompting for personal hygiene and appropriate dress Group attendance: Yes Were meds taken: Yes. Any med S/E: None reported or observed. Mental Status Exam Appearance: Somewhat disheveled man with longish hair and bliss walking around barefoot. Eye contact: Good Behavior: Resistive to care at times though does end up eventually cooperating with encouragement. Speech: Clear, audible, normal rate & rhythm, talkative Mood: Depressed Affect: Blunted. Thought process: reality distortion Thought Content: Being defeated. Cognition: A&O X3 Insight: Poor Judgment: Poor Interventions PRN's used: None Therapeutic interventions: 1:1 assessment, active listening, therapeutic conversation, medication administration/monitoring/education, encouragement to perform personal hygiene, monitored behaviors and need for intervention, redirection, reality orientation, limit setting, positive reinforcement, Q 15 min safety checks. Restraints/seclusion/emergency medication: N/A Justification of Continued Inpatient Treatment: Pt is LPS and is awaiting placement from [facility] Public Guardian is assisting in placement.
[2019-09-14 20:00] VITALS: BP 105/80
[2019-09-14] MEDS: traZODone 150mg tablet PO SCH (21:17)
--- NOTE | 2019-09-15 00:59 | NUR ---
Nursing Progress Note Legal hold: LPS Conserved Client on involuntary status for GD Report received from nurse with use of SBAR: Seven RN Why are they here: Pt. lost his placement at [place] after being hospitalized for a suspected stroke. He was later diagnosed with a pneumonia, and after being transferred to a series of hospitals was admitted to [facility]. PT is LPS conserved. Assessment What has happened this shift: Patient is self isolating in room. He is awake and well oriented. Patient exhibits a flat affect, he complains of feeling depressed. "I'm going to extremes, I'm having mood swings." Patient appears disheveled. Patient is advised he is in a safe place. S/I, H/I: Pt denies. A/VH: Pt denies. Sleep: Will tally at 0500 hours. ADL's: Independent with prompting for personal hygiene and appropriate dress. Group attendance: Yes. Were meds taken: Yes. Any med S/E: None reported or observed. Mental Status Exam Appearance: Disheveled. Eye contact: Good Behavior: Patient is self isolating, laying in bed.. Speech: Clear, audible, normal rate & rhythm. Mood: Depressed Affect: Blunted. Thought process: Reality distortion. Thought Content: Being defeated. Cognition: A&O X3 Insight: Poor Judgment: Poor Interventions PRN's used: None Therapeutic interventions: 1:1 assessment, active listening, therapeutic conversation, medication administration/monitoring/education, encouragement to perform personal hygiene, monitored behaviors and need for intervention, redirection, reality orientation, limit setting, positive reinforcement, Q 15 min safety checks. Restraints/seclusion/emergency medication: N/A Justification of Continued Inpatient Treatment: Pt is LPS and is awaiting placement from [facility] Public Guardian is assisting in placement.
[2019-09-15 07:00] VITALS: BP 110/69
[2019-09-15] MEDS: tamsulosin 0.4mg capsule PO SCH (08:22)
[2019-09-15] MEDS: lamoTRIgine 25mg tablet PO SCH ×2 (08:22→20:49)
[2019-09-15] MEDS: lisinopril 10 MG tablet PO SCH (08:22)
[2019-09-15] MEDS: multivitamins, therapeutics tablet PO SCH (08:22)
[2019-09-15] MEDS: pyridoxine 50mg tablet PO SCH (08:22)
[2019-09-15] MEDS: levoTHYROXINE 112mcg tablet PO SCH (08:22)
[2019-09-15] MEDS: quetiapine 100mg tablet PO SCH ×3 (08:23→20:48)
[2019-09-15] MEDS: sertraline 50mg tablet PO SCH (08:23)
[2019-09-15] MEDS: lactobacillus rhamnosus 10,000 MMU CELLS/CAPSULE PO SCH ×2 (08:23→20:48)
[2019-09-15] MEDS: nicotine 21mg patch - 24 hr TD SCH (08:24)
[2019-09-15] MEDS: QUEtiapine 25mg tablet PO SCH (12:57)
[2019-09-15] MEDS ORDERED: QUETIAPINE 200 MG TAB.SR.24H PO SCH (16:00)
--- NOTE | 2019-09-15 17:20 | NUR ---
Nursing Progress Note Legal hold: LPS Conserved Client on involuntary status for GD Report received from nurse with use of SBAR: Chely Muñoz RN Why are they here: Pt. lost his placement at [place] after being hospitalized for a suspected stroke. He was later diagnosed with a pneumonia, and after being transferred to a series of hospitals was admitted to [facility]. PT is LPS conserved. Assessment What has happened this shift: Patient has been in bed all shift. Encouragement was given to get patient to go into group room, but pt. Refused. Pt. Does make some superficial conversation, but appears hopeless today. Patient did shower and wash his hair today with prompting. S/I, H/I: Pt denies A/VH: Pt denies Sleep: slept 9 hours NOC ADL's: Freshly showered. Group attendance: No. Were meds taken: Yes. Any med S/E: None reported or observed. Mental Status Exam Appearance: Clean, but disheveled male lying in bed. Eye contact: Good Behavior: Resistive to care at times though does end up eventually cooperating with encouragement. Speech: Clear, audible, normal rate & rhythm, talkative Mood: Depressed Affect: Blunted. Thought process: reality distortion Thought Content: Staying in bed. Cognition: A&O X3 Insight: Poor Judgment: Poor Interventions PRN's used: None Therapeutic interventions: 1:1 assessment, active listening, therapeutic conversation, medication administration/monitoring/education, encouragement to perform personal hygiene, monitored behaviors and need for intervention, redirection, reality orientation, limit setting, positive reinforcement, Q 15 min safety checks. Restraints/seclusion/emergency medication: N/A Justification of Continued Inpatient Treatment: Pt is LPS and is awaiting placement from [facility] Public Guardian is assisting in placement.
[2019-09-15 19:20] VITALS: BP 94/56
[2019-09-15] MEDS: traZODone 150mg tablet PO SCH (20:50)
--- NOTE | 2019-09-15 23:37 | NUR ---
Nursing Progress Note Legal hold: LPS Conserved Client on involuntary status for GD Report received from nurse with use of SBAR: CHERISE Garcia Why are they here: Pt. lost his placement at [place] after being hospitalized for a suspected stroke. He was later diagnosed with a pneumonia, and after being transferred to a series of hospitals was admitted to [facility]. PT is LPS conserved. Assessment This patient is isolating in bed following shift change and throughout the evening. This procedure writer asked the patient how long have you been in bed? The patient replies "pretty much all day." The patient looks disheveled. He states "I'm confused about everything," he will not elaborate. Patient is somewhat delusional, he remains well oriented. He admits to depression, there is no suicidal ideation. He denies H/I, he denies voices or other hallucinations. Patient is reminded he is in a safe place. He is prompted to get up and socialize, do personal hygiene, and notify this procedure writer for any needs. Patient is medication compliant. S/I, H/I: Pt denies. A/VH: Pt denies. Sleep: Will tally at 0500 hours. ADL's: Independent with prompting for personal hygiene and appropriate dress. Group attendance: Not on day shift. Were meds taken: Yes. Any med S/E: None reported or observed. Mental Status Exam Appearance: Disheveled. Eye contact: Good Behavior: Patient is self isolating, laying in bed.. Speech: Clear, audible, normal rate & rhythm. Mood: Depressed. Affect: Blunted. Thought process: Reality distortion. Thought Content: Being defeated. Cognition: A&O X3 Insight: Poor Judgment: Poor Interventions PRN's used: None Therapeutic interventions: 1:1 assessment, active listening, therapeutic conversation, medication administration/monitoring/education, encouragement to perform personal hygiene, monitored behaviors and need for intervention, redirection, reality orientation, limit setting, positive reinforcement, Q 15 min safety checks. Restraints/seclusion/emergency medication: N/A Justification of Continued Inpatient Treatment: Pt is LPS and is awaiting placement from [facility] Public Guardian is assisting in placement.
[2019-09-16 07:31] VITALS: BP 98/65
[2019-09-16] MEDS: lisinopril 10 MG tablet PO SCH (08:00)
[2019-09-16] MEDS ORDERED: docusate sod 100mg capsule PO ONE (08:00)
[2019-09-16] MEDS: multivitamins, therapeutics tablet PO SCH (08:01)
[2019-09-16] MEDS: tamsulosin 0.4mg capsule PO SCH (08:02)
[2019-09-16] MEDS: lamoTRIgine 25mg tablet PO SCH ×2 (08:02→20:09)
[2019-09-16] MEDS: pyridoxine 50mg tablet PO SCH (08:02)
[2019-09-16] MEDS: QUEtiapine 25mg tablet PO SCH ×2 (08:02→13:41)
[2019-09-16] MEDS: lactobacillus rhamnosus 10,000 MMU CELLS/CAPSULE PO SCH ×2 (08:03→20:12)
[2019-09-16] MEDS: levoTHYROXINE 112mcg tablet PO SCH (08:03)
[2019-09-16] MEDS: sertraline 50mg tablet PO SCH (08:06)
[2019-09-16] MEDS: nicotine 21mg patch - 24 hr TD SCH (08:07)
--- NOTE | 2019-09-16 10:57 | NUR ---
DISCHARGE PLANNING Called Stefano Barrett at [facility] (ph# [phone]) to inquire about Ct's placement. Left a message requesting a call back. VERONIQUE Finney
--- NOTE | 2019-09-16 11:01 | NUR ---
DISCHARGE PLANNING Called Angela Christopher (Phone# [phone]) with [facility] to see if there is an update on Ct's placement. Left message requesting a call back. VERONIQUE Finney
--- NOTE | 2019-09-16 18:14 | NUR ---
Nursing Progress Note Legal hold: LPS Conserved Client on involuntary status for GD Report received from nurse with use of SBAR: Justin RN Why are they here: Pt. lost his placement at [place] after being hospitalized for a suspected stroke. He was later diagnosed with a pneumonia, and after being transferred to a series of hospitals was admitted to [facility]. PT is LPS conserved. Assessment What has happened this shift: Patient has been staying in bed reporting that he is having increase in depressive symptoms, that he has no interest in doing anything. Patient has no complaints. He will make some small talk, but his memory is poor and he does not like to talk about the past. Patient did attend all meals today. Blood pressure was 92/44, repeated was 125/70. Pt has not been drinking adequate amounts of water, which was encouraged. Pt. Is apathetic, anhedonic. S/I, H/I: Pt denies A/VH: Pt denies Sleep: slept on and off throughout the day. ADL's: Disheveled male in scrubs. Group attendance: No. Were meds taken: Yes. Any med S/E: Fatigue Mental Status Exam Appearance: Clean, but disheveled male lying in bed. Eye contact: Good Behavior: Calm,, laying in bed all day except meals. Speech: Clear, audible, normal rate & rhythm Mood: Depressed Affect: Flat. Thought process: reality distortion Thought Content: Staying in bed. Cognition: A&O X3 Insight: Poor Judgment: Poor Interventions PRN's used: None Therapeutic interventions: 1:1 assessment, active listening, therapeutic conversation, medication administration/monitoring/education, encouragement to perform personal hygiene, monitored behaviors and need for intervention, encouraged increased p.o. Fluid intake, redirection, reality orientation, limit setting, positive reinforcement, Q 15 min safety checks. Restraints/seclusion/emergency medication: N/A Justification of Continued Inpatient Treatment: Pt is LPS and is awaiting placement from [facility] Public Guardian is assisting in placement.
[2019-09-16 20:04] VITALS: BP 104/71
[2019-09-16] MEDS: quetiapine 100mg tablet PO SCH (20:08)
[2019-09-16] MEDS: docusate sod 100mg capsule PO SCH (20:09)
[2019-09-16] MEDS: traZODone 150mg tablet PO SCH (20:09)
--- NOTE | 2019-09-17 01:26 | NUR ---
Nursing Progress Note: Legal hold: LPS Client on involuntary status for GD Report received from nurse with use of SBAR: CHERISE Wilkes Why are they here: Pt. lost his placement at [place] after being hospitalized for a suspected stroke. He was later diagnosed with a pneumonia, and after being transferred to a series of hospitals was admitted to [facility]. PT is LPS conserved. Assessment What has happened this shift: The patient was found in his bed. 1:1 completed at bedside. He has been in bed all shift and refuses to get up. The patient denies depression, SI, but states he just doesn't want to be around people. He appears withdrawn and has stopped moving forward. The patient is compliant with medications and declined a shower or snacks. S/I, H/I: Denies A/VH: Denies Sleep: See Sleep hours. ADL's: Independent, needs prompting. Group attendance: supervisor ditching, no group. Were meds taken: Yes. Any med S/E: None reported or observed. Mental Status Exam Appearance: Disheveled, greasy hair and clothing, smelly, unclean, needs shower. Eye contact: Avoided Behavior: Withdrawn, isolative, irritable. Speech: Clear, normal rate and rhythm Mood: labile Affect: Constricted Thought process: Tangential, delusional Thought Content: Delusional Cognition: A&O X3 (not to reason here) Insight: Poor Judgment: Poor Interventions PRN's used: none Therapeutic interventions: Maintained a safe and therapeutic environment, provided clear and simple instructions, reoriented to reality, monitored behaviors and need for intervention, encouraged independent performance of ADLs, and maintained Q 15 min safety checks. Restraints/seclusion/emergency medication: N/A Justification of Continued Inpatient Treatment: Pt is LPS and is awaiting placement to [place]. [place] Public Guardian is assisting in placement.
[2019-09-17] MEDS: lisinopril 10 MG tablet PO SCH (07:47)
[2019-09-17] MEDS: lactobacillus rhamnosus 10,000 MMU CELLS/CAPSULE PO SCH ×2 (07:47→20:14)
[2019-09-17] MEDS: lamoTRIgine 25mg tablet PO SCH ×2 (07:47→20:14)
[2019-09-17] MEDS: levoTHYROXINE 112mcg tablet PO SCH (07:48)
[2019-09-17] MEDS: tamsulosin 0.4mg capsule PO SCH (07:48)
[2019-09-17] MEDS: multivitamins, therapeutics tablet PO SCH (07:48)
[2019-09-17] MEDS: pyridoxine 50mg tablet PO SCH (07:48)
[2019-09-17] MEDS: QUEtiapine 25mg tablet PO SCH ×2 (07:49→11:52)
[2019-09-17] MEDS: docusate sod 100mg capsule PO SCH ×2 (07:52→20:14)
[2019-09-17] MEDS: nicotine 21mg patch - 24 hr TD SCH (07:52)
[2019-09-17 08:00] VITALS: BP 104/71
[2019-09-17] MEDS ORDERED: sertraline 50mg tablet PO SCH (08:00)
--- NOTE | 2019-09-17 14:10 | NUR ---
Nursing Progress Note Legal hold: LPS Conserved Client on involuntary status for GD Report received from nurse with use of SBAR: SANDY Lynn Why are they here: Pt. lost his placement at [place] after being hospitalized for a suspected stroke. He was later diagnosed with a pneumonia, and after being transferred to a series of hospitals was admitted to [facility]. PT is LPS conserved. Assessment What has happened this shift: Pt was resting in bed peacefully with eyes open at change of shift. Pt declines to take the colace and the Zoloft, however he takes the rest of his medications without incident. He is pleasant but withdrawn. He reports that he is depressed but denies SI. He denies A/VH. Pt. Is apathetic, anhedonic. He refused to get up for breakfast and lunch. Water is encouraged. Snacks are offered and Pt ate a cup of applesauce. S/I, H/I: Pt denies A/VH: Pt denies Sleep: slept majority of the day. ADL's: Disheveled in hospital green scrubs. Group attendance: No. Were meds taken: Yes. Any med S/E: none reported Mental Status Exam Appearance: Clean, but disheveled male lying in bed. Eye contact: Good Behavior: Calm, laying in bed, pleasant Speech: Clear, audible, normal rate & rhythm Mood: Depressed Affect: Flat. Thought process: reality distortion Thought Content: "i am depressed, I don't want to do anything". Cognition: A&O X3 Insight: Poor Judgment: Poor Interventions PRN's used: None Therapeutic interventions: 1:1 assessment, active listening, therapeutic conversation, medication administration/monitoring/education, encouragement to perform personal hygiene, monitored behaviors and need for intervention, encouraged increased p.o. Fluid intake, redirection, reality orientation, limit setting, positive reinforcement, Q 15 min safety checks. Restraints/seclusion/emergency medication: N/A Justification of Continued Inpatient Treatment: Pt is LPS and is awaiting placement from [facility] Public Guardian is assisting in placement. Addendum: 09/17/19 at 1606 by Cayla Islas RN Pt was seen ambulating in the hallway and went to community room to participate in group conversation. Declined snacks.
[2019-09-17 18:48] VITALS: BP 104/71
[2019-09-17] MEDS: OLANZapine **IM** 10 mg inj. IM SCH (20:00)
[2019-09-17] MEDS: lithium carbonate 150mg capsule PO SCH (20:13)
[2019-09-17] MEDS: quetiapine 100mg tablet PO SCH (20:14)
[2019-09-17] MEDS: traZODone 150mg tablet PO SCH (20:14)
--- NOTE | 2019-09-17 23:09 | NUR ---
Nursing Progress Note: Legal hold: LPS Client on involuntary status for GD Report received from nurse with use of SBAR: CHERISE Blanchard Why are they here: Pt. lost his placement at [place] after being hospitalized for a suspected stroke. He was later diagnosed with a pneumonia, and after being transferred to a series of hospitals was admitted to [facility]. PT is LPS conserved. Assessment What has happened this shift: The patient was in bed at change of shift, refusing to socialize with others. pt allowed 1:1 but was very short with answers and appeared annoyed. pt mostly isolated to his room except at approx 2200 the pt came out of his room completely naked. pt was redirected by tech and put his clothes back on without further issue. S/I, H/I: Denies A/VH: Denies Sleep: See Sleep hours. ADL's: Independent, needs prompting. Group attendance: power and recovery shift engineer, no group. Were meds taken: Yes. Any med S/E: None reported or observed. Mental Status Exam Appearance: Disheveled, greasy hair and clothing, smelly, unclean, needs shower. Eye contact: Avoided Behavior: Withdrawn, isolative, irritable. Speech: Clear, normal rate and rhythm Mood: labile Affect: Constricted Thought process: Tangential, delusional Thought Content: Delusional Cognition: A&O X3 (not to reason here) Insight: Poor Judgment: Poor Interventions PRN's used: none Therapeutic interventions: Maintained a safe and therapeutic environment, provided clear and simple instructions, reoriented to reality, monitored behaviors and need for intervention, encouraged independent performance of ADLs, and maintained Q 15 min safety checks. Restraints/seclusion/emergency medication: N/A Justification of Continued Inpatient Treatment: Pt is LPS and is awaiting placement to [place]. [place] Public Guardian is assisting in placement.
[2019-09-18 07:00] VITALS: BP 89/56
[2019-09-18] MEDS: tamsulosin 0.4mg capsule PO SCH (07:40)
[2019-09-18] MEDS: lamoTRIgine 25mg tablet PO SCH ×2 (07:41→20:17)
[2019-09-18] MEDS: lactobacillus rhamnosus 10,000 MMU CELLS/CAPSULE PO SCH ×2 (07:41→20:19)
[2019-09-18] MEDS: levoTHYROXINE 112mcg tablet PO SCH (07:41)
[2019-09-18] MEDS: pyridoxine 50mg tablet PO SCH (07:41)
[2019-09-18] MEDS: docusate sod 100mg capsule PO SCH ×2 (07:41→20:17)
[2019-09-18] MEDS: QUEtiapine 25mg tablet PO SCH ×2 (07:41→13:23)
[2019-09-18] MEDS: multivitamins, therapeutics tablet PO SCH (07:41)
[2019-09-18] MEDS: nicotine 21mg patch - 24 hr TD SCH (07:42)
[2019-09-18] MEDS: OLANZapine **IM** 10 mg inj. IM SCH ×2 (08:00→20:00)
[2019-09-18] MEDS: lisinopril 5mg tablet PO SCH (08:00)
--- NOTE | 2019-09-18 11:51 | NUR ---
Reassessment: Pt PO 75-100% avg meals meeting needs. LBM 09/17. No nutrition concerns at this time. Will continue to monitor. Recommend: 1. continue regular diet 2. bowel care as needed 3. weight per rx Addendum: 09/18/19 at [address] Amended: Links added.
--- NOTE | 2019-09-18 17:05 | NUR ---
Nursing Progress Note Legal hold: LPS Conserved Client on involuntary status for GD Report received from nurse with use of SBAR: CHERISE Lynn Why are they here: Pt. lost his placement at [place] after being hospitalized for a suspected stroke. He was later diagnosed with a pneumonia, and after being transferred to a series of hospitals was admitted to [facility]. PT is LPS conserved. Assessment What has happened this shift: It was reported that patient was getting up in the night and walking into the hallways naked. Today, patient kept walking out of his room down hallway and into group room naked x 3. Male staff were able to get him to keep his clothing on him by monitoring him 1:1 for a short duration. Patient states that he is depressed. CONCHIS Robles DC'd h.s. dose of Seroquel. Patient's blood pressure 89/56, Zestril was held. Instructed pt that he needed to drink more fluids. Patient was given apple juice/water mixture. He ate a few bites of sausage and some milk for breakfast, refused lunch. S/I, H/I: Pt denies A/VH: Pt denies Sleep: 6.5 hrs noc ADL's: Disheveled male with greasy hair. Pt. refusing to shower. Malodorous Group attendance: Sat for a little while in group today. Were meds taken: Yes. Any med S/E: Fatigue Mental Status Exam Appearance: Disheveled male with greasy hair, malodorous. Eye contact: Good Behavior: Behavior changes, walking out of room naked into group room, redirected. Speech: Clear, soft slow. Mood: Depressed Affect: Flat. Thought process: reality distortion, poverty of thought. Thought Content: Staying in bed. Cognition: A&O X3 Insight: Poor Judgment: Poor Interventions PRN's used: None Therapeutic interventions: 1:1 assessment, active listening, therapeutic conversation, medication administration/monitoring/education, encouragement to perform personal hygiene, monitored behaviors and need for intervention, encouraged increased p.o. Fluid intake, redirection, reality orientation, limit setting, positive reinforcement, Q 15 min safety checks. Restraints/seclusion/emergency medication: N/A Justification of Continued Inpatient Treatment: Pt is LPS and is awaiting placement from [facility] Public Guardian is assisting in placement.
[2019-09-18 20:00] VITALS: BP 108/75
[2019-09-18] MEDS: lithium carbonate 150mg capsule PO SCH (20:18)
[2019-09-18] MEDS: quetiapine 100mg tablet PO SCH (20:18)
[2019-09-18] MEDS: traZODone 150mg tablet PO SCH (20:18)
[2019-09-18 22:19] VITALS: BP 108/75
--- NOTE | 2019-09-19 00:26 | NUR ---
Nursing Progress Note: Legal hold: LPS Client on involuntary status for GD Report received from nurse with use of SBAR: CHERISE Blanchard Why are they here: Pt. lost his placement at [place] after being hospitalized for a suspected stroke. He was later diagnosed with a pneumonia, and after being transferred to a series of hospitals was admitted to [facility]. PT is LPS conserved. Assessment What has happened this shift: pt isolated to room all evening. pt was out of room naked at change of shift but put clothes back on when asked. pt denied a/vh, si. pt refused assessment but accepted hs meds with no issue. pt appeared to be fatigued and answers questions slower than on previous evenings. pt denied pain or any other issue. S/I, H/I: Denies A/VH: Denies Sleep: See Sleep hours. ADL's: Independent, needs prompting. Group attendance: nurse obgyn, no group. Were meds taken: Yes. Any med S/E: None reported or observed. Mental Status Exam Appearance: Disheveled, greasy hair and clothing, smelly, unclean, needs shower. Eye contact: Avoided Behavior: Withdrawn, isolative, irritable. Speech: Clear, normal rate and rhythm Mood: labile Affect: Constricted Thought process: Tangential, delusional Thought Content: Delusional Cognition: A&O X4 Insight: Poor Judgment: Poor Interventions PRN's used: none Therapeutic interventions: Maintained a safe and therapeutic environment, provided clear and simple instructions, reoriented to reality, monitored behaviors and need for intervention, encouraged independent performance of ADLs, and maintained Q 15 min safety checks. Restraints/seclusion/emergency medication: N/A Justification of Continued Inpatient Treatment: Pt is LPS and is awaiting placement to [place]. [place] Public Guardian is assisting in placement.
[2019-09-19 07:34] VITALS: BP 98/65
[2019-09-19] MEDS: pyridoxine 50mg tablet PO SCH (07:38)
[2019-09-19] MEDS: levoTHYROXINE 112mcg tablet PO SCH (07:38)
[2019-09-19] MEDS: multivitamins, therapeutics tablet PO SCH (07:38)
[2019-09-19] MEDS: lisinopril 5mg tablet PO SCH (07:38)
[2019-09-19] MEDS: lactobacillus rhamnosus 10,000 MMU CELLS/CAPSULE PO SCH ×3 (07:38→20:30)
[2019-09-19] MEDS: tamsulosin 0.4mg capsule PO SCH (07:38)
[2019-09-19] MEDS: lamoTRIgine 25mg tablet PO SCH ×2 (07:39→20:31)
[2019-09-19] MEDS: QUEtiapine 25mg tablet PO SCH ×2 (07:39→12:24)
[2019-09-19] MEDS ORDERED: OLANZapine **IM** 10 mg inj. IM PRN (07:40)
[2019-09-19] MEDS: docusate sod 100mg capsule PO SCH ×2 (08:00→20:31)
[2019-09-19] MEDS: nicotine 21mg patch - 24 hr TD SCH (08:00)
--- NOTE | 2019-09-19 14:54 | NUR ---
Nursing Progress Note: [place] Legal hold: LPS Client on involuntary status for GD Report received from nurse with use of SBAR: Lo RN Why are they here: Pt. lost his placement at [place] after being hospitalized for a suspected stroke. He was later diagnosed with a pneumonia, and after being transferred to a series of hospitals was admitted to [facility]. PT is LPS conserved. Assessment What has happened this shift: Patient asleep at change of shift. During 1:1 assessment, states he has not been honest, and he is a stupid person. States Kashif says I am a stupid person. With much encouragement, patient took all psychiatric medications, however refuse colace, culturelle, and nicotine patch. During assessment patient states he is experiencing visual hallucinations, but will not elaborate. Was placed in shower, upon exiting shower, patient had not bathed, states I just went in there because they told me too. I know I have been bad. Concerned about patient becoming more confused, about place and time. Isolates in his room, due to poor nutritional intake, was allowed to have breakfast tray in room. Provided with a shower cap and encouraged to wash in his room. Patient continues to be confused, guarded and withdrawn. S/I, H/I: Denies A/VH: kashif says I am stupid. That building over there isnt part of the hospital Sleep: 8 ADL's: Need assistance, confused as to what he is supposed to be doing. Group attendance: No Were meds taken: Yes. Refused colace, culturelle, and nicotine patch Any med S/E: None reported or observed. Mental Status Exam Appearance: Disheveled, greasy hair and clothing, smelly, unclean, needs shower. Eye contact: Avoided Behavior: Withdrawn, isolative, gaurded Speech: Clear, normal rate and rhythm Mood: withdrawn Affect: Constricted Thought process: Tangential, delusional Thought Content: Delusional Cognition: A&O X4 Insight: Poor Judgment: Poor Interventions PRN's used: none Therapeutic interventions: Maintained a safe and therapeutic environment, provided clear and simple instructions, reoriented to reality, monitored behaviors and need for intervention, encouraged independent performance of ADLs, and maintained Q 15 min safety checks. Restraints/seclusion/emergency medication: N/A Justification of Continued Inpatient Treatment: Pt is LPS and is awaiting placement to [place]. [place] Public Guardian is assisting in placement.
[2019-09-19 19:39] VITALS: BP 110/85
[2019-09-19] MEDS: lithium carbonate 150mg capsule PO SCH (20:30)
[2019-09-19] MEDS: traZODone 150mg tablet PO SCH (20:31)
[2019-09-19] MEDS: quetiapine 100mg tablet PO SCH ×2 (20:31→21:06)
--- NOTE | 2019-09-20 00:22 | NUR ---
Nursing Progress Note: Legal hold: LPS Client on involuntary status for GD Report received from nurse with use of SBAR: CHERISE Blanchard Why are they here: Pt. lost his placement at [place] after being hospitalized for a suspected stroke. He was later diagnosed with a pneumonia, and after being transferred to a series of hospitals was admitted to [facility]. PT is LPS conserved. Assessment What has happened this shift: Pt sitting at the edge of the bed in his room during shift change. Pt is paranoid making delusional statement. States that "I am going to detention, I just got busted, all these new faces are out to get me". He states that he just found out today and that it was because of taxation. This lead technical writer reassured patient of his safety here. Pt was cooperative during 1:1 physical assessment and at first did not want to take his evening meds because he stated that they were not going to do anything for him but eventually agreed to take them. He states that he feels really stupid and that he was not able to have a bowl movement because of his nerves but had a bowel movement today. Needs lots of prompting. Pt denies S/I or hallucinations of any type. Pt remained isolative in his room the remainder of the evening and only came out of his room once. S/I, H/I: Denies A/VH: Denies Sleep: See Sleep Assessment ADL's: Independent, needs prompting. Group attendance: shiftman, no group. Were meds taken: Yes. Any med S/E: None reported or observed. Mental Status Exam Appearance: Disheveled, greasy hair and clothing, smelly, unclean, needs shower. Eye contact: Fair Behavior: Withdrawn, isolative, irritable. Speech: Clear, normal rate and rhythm Mood: Paranoid Affect: Constricted Thought process: Tangential, delusional Thought Content: Delusional, feeling stupid and thinking he is going to detention Cognition: A&O X4 Insight: Poor Judgment: Poor Interventions PRN's used: none Therapeutic interventions: Maintained a safe and therapeutic environment, provided clear and simple instructions, reoriented to reality, monitored behaviors and need for intervention, encouraged independent performance of ADLs, and maintained Q 15 min safety checks. Restraints/seclusion/emergency medication: N/A Justification of Continued Inpatient Treatment: Pt is LPS and is awaiting placement to [place]. [place] Public Guardian is assisting in placement.
[2019-09-20] MEDS: pyridoxine 50mg tablet PO SCH (07:13)
[2019-09-20] MEDS: multivitamins, therapeutics tablet PO SCH (07:13)
[2019-09-20] MEDS: lisinopril 5mg tablet PO SCH (07:13)
[2019-09-20] MEDS: QUEtiapine 25mg tablet PO SCH ×2 (07:13→12:43)
[2019-09-20] MEDS: docusate sod 100mg capsule PO SCH ×2 (07:13→20:24)
[2019-09-20] MEDS: lactobacillus rhamnosus 10,000 MMU CELLS/CAPSULE PO SCH ×2 (07:13→20:25)
[2019-09-20] MEDS: levoTHYROXINE 112mcg tablet PO SCH (07:13)
[2019-09-20] MEDS: tamsulosin 0.4mg capsule PO SCH (07:13)
[2019-09-20] MEDS: lamoTRIgine 25mg tablet PO SCH ×2 (07:14→20:24)
[2019-09-20] MEDS: nicotine 21mg patch - 24 hr TD SCH (07:22)
[2019-09-20 07:43] VITALS: BP 117/66
--- NOTE | 2019-09-20 14:38 | NUR ---
Nursing Progress Note: [place] Legal hold: [facility] Client on involuntary status for GD Report received from nurse with use of SBAR: CHERISE Champagne Why are they here: Pt. lost his placement at [place] after being hospitalized for a suspected stroke. He was later diagnosed with a pneumonia, and after being transferred to a series of hospitals was admitted to [facility]. PT is LPS conserved. Assessment What has happened this shift: Patient lying in bed staring up at ceiling. When approached patient does not initially respond. Eventually he states, I really screwed up. When asked to elaborate, patient appears tormented however, will not respond to the question. Compliant with 1:1 MH and physical assessment. Encouraged patient to have breakfast in community room, which he was compliant with. While administering medications, patient again states I did a really bad thing. When asked this time he responds, I murdered someone. When asked when? He responds last night. Attempted to reorient patient to current place and time and that he did not harm anyone, yet he just shakes his head and looks downward. Continues to focus on delusion that he has killed someone it was premeditated murder, I called the FBI. States he killed a man who was once on this unit. Attempt to orient patient to current reality without success. When directed to go into community room for meals, he complies and has been eating more. Showered today with assistance of VERO Matthews. S/I, H/I: Denies A/VH: Denies Sleep: 2.75 ADL's: Requires assistance due to paranoia and confusion Group attendance: No. Were meds taken: Yes. Any med S/E: None reported or observed. Mental Status Exam Appearance: Showered, clean scrubs, clean hair Eye contact: Fair Behavior: gaurded, paranoid, sad Speech: Clear, normal rate and rhythm Mood: despairing Affect: Blunted Thought process: [place] Thought Content: Delusional, I murdered someone Cognition: A&O X4 Insight: Poor Judgment: Poor Interventions PRN's used: none Therapeutic interventions: Maintained a safe and therapeutic environment, provided clear and simple instructions, reoriented to reality, monitored behaviors and need for intervention, encouraged independent performance of ADLs, and maintained Q 15 min safety checks. Restraints/seclusion/emergency medication: N/A Justification of Continued Inpatient Treatment: Pt is LPS and is awaiting placement to [place]. [place] Public Guardian is assisting in placement.
[2019-09-20] MEDS: traZODone 150mg tablet PO SCH (20:24)
[2019-09-20] MEDS: quetiapine 100mg tablet PO SCH (20:25)
[2019-09-20] MEDS: lithium carbonate 150mg capsule PO SCH (20:25)
[2019-09-20] MEDS ORDERED: risperiDONE 0.5mg tablet PO SCH (21:00)
--- NOTE | 2019-09-20 21:51 | NUR ---
Nursing note: Patient refused all vital signs and most of physical assessment. Addendum: 09/20/19 at 2152 by Mahi Allan RN Amended: Links added.
--- NOTE | 2019-09-21 00:18 | NUR ---
Nursing Progress Note: Legal hold: LPS Client on involuntary status for GD Report received from nurse with use of SBAR: CHERISE Sampson Why are they here: Pt. lost his placement at [place] after being hospitalized for a suspected stroke. He was later diagnosed with a pneumonia, and after being transferred to a series of hospitals was admitted to [facility]. PT is LPS conserved. Assessment What has happened this shift: During shift change, Pt was pacing down the isles, seemed very confused. When this global technical writer approached him, and asked how he was doing, it took him a awhile but eventually said that he wasn't doing good. He states "I can't believe I did this". This global technical writer asked to elaborate and he stated that he let the people in. Pt was very paranoid. He also refused vital signs and minimal physical assessment was done on patient. When it was time to administer his medications, he was very reluctant to take them. He was paranoid making a lot delusional statements. "I just wet my pants. I can't believe I held it for this long". Patient kept looking at his pants and stating that he couldn't take his meds. Eventually he agreed to take them. Pt got very little sleep because he kept coming out of his room stating that he needed to get out. Reassured patient that he couldn't leave the unit. S/I, H/I: Denies A/VH: Denies Sleep: See Sleep Assessment ADL's: Independent, needs prompting. Group attendance: production supervisor off shift, no group. Were meds taken: Yes. Any med S/E: None reported or observed. Mental Status Exam Appearance: Disheveled, greasy hair and clothing, smelly, unclean Eye contact: Fair Behavior: Withdrawn, isolative, irritable. Speech: Clear, normal rate and rhythm Mood: Paranoid Affect: Constricted Thought process: Tangential, delusional Thought Content: Delusional, wetting his pants Cognition: A&O X4 Insight: Poor Judgment: Poor Interventions PRN's used: none Therapeutic interventions: Maintained a safe and therapeutic environment, provided clear and simple instructions, reoriented to reality, monitored behaviors and need for intervention, encouraged independent performance of ADLs, and maintained Q 15 min safety checks. Restraints/seclusion/emergency medication: N/A Justification of Continued Inpatient Treatment: Pt is LPS and is awaiting placement to [place]. [place] [facility] is assisting in placement.
[2019-09-21] MEDS: LORazepam 1 MG tablet PO PRN ×2 (00:40→08:37)
[2019-09-21] MEDS: lisinopril 5mg tablet PO SCH (07:08)
[2019-09-21] MEDS: lactobacillus rhamnosus 10,000 MMU CELLS/CAPSULE PO SCH ×2 (07:08→20:20)
[2019-09-21] MEDS: tamsulosin 0.4mg capsule PO SCH (07:08)
[2019-09-21] MEDS: multivitamins, therapeutics tablet PO SCH (07:08)
[2019-09-21] MEDS: QUEtiapine 25mg tablet PO SCH ×2 (07:08→12:16)
[2019-09-21] MEDS: lamoTRIgine 25mg tablet PO SCH ×2 (07:08→20:22)
[2019-09-21] MEDS: levoTHYROXINE 112mcg tablet PO SCH (07:08)
[2019-09-21] MEDS: docusate sod 100mg capsule PO SCH ×2 (07:08→20:20)
[2019-09-21] MEDS: pyridoxine 50mg tablet PO SCH (07:08)
[2019-09-21 07:30] VITALS: BP 123/76
[2019-09-21] MEDS: nicotine 21mg patch - 24 hr TD SCH (08:00)
[2019-09-21] MEDS ORDERED: OLANZapine 5mg rapidly disint. tablet PO ONE (12:25)
--- NOTE | 2019-09-21 14:18 | NUR ---
Nursing Progress Note: [place] Legal hold: LPS Client on involuntary status for GD Report received from nurse with use of SBAR: Adrián RN Why are they here: Pt. lost his placement at [place] after being hospitalized for a suspected stroke. He was later diagnosed with a pneumonia, and after being transferred to a series of hospitals was admitted to [facility]. PT is LPS conserved. Assessment What has happened this shift: During shift change, Pt was pacing down the hallway, seemed very anxious and confused. Patient states I really screwed up, we are locked in here? Explained that he is on a psychiatric unit and assured him he is safe. Continues to approach this auto service writer stating we are in big trouble, you have to let the people in. They are waiting outside to see me, you must let them in. How do we get out of here.. HR 124, medicated with ativan to help reduce anxiety, and paranoia. Alerted provider regarding increasing anxiety and paranoia. Medicated with zyprexa per order. Continues to state we have to get out of here, I may have to break a window. S/I, H/I: Denies A/VH: Denies Sleep: 2.5 ADL's: Independent, needs prompting. Group attendance: no Were meds taken: Yes. Any med S/E: None reported or observed. Mental Status Exam Appearance: unbrushed hair, dirty scrubs Eye contact: Fair Behavior: intrusive with nurse Speech: Clear, normal rate and rhythm Mood: Paranoid Affect: Constricted Thought process: [place] Thought Content: Delusional We are in big trouble, I murdered somebody Cognition: A&O X4 Insight: Poor Judgment: Poor Interventions PRN's used: none Therapeutic interventions: Maintained a safe and therapeutic environment, provided clear and simple instructions, reoriented to reality, monitored behaviors and need for intervention, encouraged independent performance of ADLs, and maintained Q 15 min safety checks. Restraints/seclusion/emergency medication: N/A Justification of Continued Inpatient Treatment: Pt is LPS and is awaiting placement to [place]. [place] Public [facility] is assisting in placement.
[2019-09-21 19:16] VITALS: BP 113/71
[2019-09-21] MEDS: traZODone 150mg tablet PO SCH (20:20)
[2019-09-21] MEDS: lithium carbonate 150mg capsule PO SCH (20:21)
[2019-09-21] MEDS: quetiapine 100mg tablet PO SCH (20:23)
[2019-09-21] MEDS: risperiDONE 0.5mg tablet PO SCH (20:24)
--- NOTE | 2019-09-22 01:25 | NUR ---
Nursing Progress Note: Legal hold: LPS Client on involuntary status for GD Report received from nurse with use of SBAR: CHERISE Sampson Why are they here: Pt. lost his placement at [place] after being hospitalized for a suspected stroke. He was later diagnosed with a pneumonia, and after being transferred to a series of hospitals was admitted to [facility]. Pt is LPS conserved. Assessment What has happened this shift: Pt paced the hallway most of the shift, checking the unit entrance to see if it would open. Pt perseverated on the following delusional thoughts: "I murdered someone last week."; "They are here for me- waiting outside. Need to let them in. They are here for me." (r/t to checking door); "I am locked in here. I can't leave. I need to turn myself in. I did something really bad." Pt appears anxious, restless, and confused. He is intermittently teary. He does not answer most assessment questions and returns to making the aforementioned delusional statements. This RN attempted to reinforce reality by explaining he is on a psychiatric unit and assured him he is safe. Pt would only state "No, no you don't understand. I messed up. They need to come get me." RN commented on how pt looked very tired, and a good nights rest may help; Pt responded "Yes. I'm tired." Then after a pause, continued to state he is a murderer. margarine churn operator able to get pt to eat chago crackers and drink an OJ. Pt compliant with HS medications but kept pacing the unit looking very stressed and concerned. This RN assisted pt to room, and instead of reality orientation, told the pt that "They know you are here. They can't come in, but they know you are here. We know what happened, and we are going to care for you here now." Pt was resistant but then stated "Okay, Okay" after RN repeated herself. RN stayed at bedside reassuring pt he was safe, and this was where he was brought and needed to be cared for; pt eventually dozed off and awoke at 0120 for water; pt immediately made the same delusional statements. RN able to get pt back to sleep via same reassurance provided earlier. Possible UTI suspected given pt's recent decompensation. UA order obtained, but specimen has yet to be collected. Pt denies pain or frequency with urination, but is not able to answer assessment questions well. He back away from RN when approached about the sample; Staff to continue to try tomorrow. S/I, H/I: Would not answer A/VH: Would not answer Sleep: See Sleep Assessment ADL's: Independent, needs encouragement and prompting; Needs a shower Group attendance: N/A Were meds taken: Yes Any med S/E: None reported; Pt has increased restlessness, hands are intermittently tremulous, and twisting/jutting tongue often Mental Status Exam Appearance: Disheveled; pt hair is oily and scrubs are soiled (Refused shower and new scrub set), slippers Eye contact: Fair Behavior: Pacing halls Speech: Clear, normal rate and rhythm Mood: Anxious Affect: Restricted, Intermittently teary Thought process: Delusional Thought Content: "I committed a pre-meditated murder" Cognition: A&Ox3 (off for circumstance) Insight: Poor Judgment: Poor Interventions PRN's used: None Therapeutic interventions: Maintained a safe and therapeutic environment, provided clear and simple instructions, reoriented to reality, monitored behaviors and need for intervention, encouraged independent performance of ADLs, and maintained Q 15 min safety checks. Restraints/seclusion/emergency medication: N/A Justification of Continued Inpatient Treatment: Pt is LPS and is awaiting placement to [place]. [place] [facility] is assisting in placement.
[2019-09-22] MEDS: pyridoxine 50mg tablet PO SCH (07:25)
[2019-09-22] MEDS: levoTHYROXINE 112mcg tablet PO SCH (07:25)
[2019-09-22] MEDS: docusate sod 100mg capsule PO SCH ×2 (07:26→21:21)
[2019-09-22] MEDS: lactobacillus rhamnosus 10,000 MMU CELLS/CAPSULE PO SCH ×2 (07:26→21:22)
[2019-09-22] MEDS: QUEtiapine 25mg tablet PO SCH ×2 (07:26→12:46)
[2019-09-22] MEDS: lisinopril 5mg tablet PO SCH (07:26)
[2019-09-22] MEDS: tamsulosin 0.4mg capsule PO SCH (07:26)
[2019-09-22] MEDS: lamoTRIgine 25mg tablet PO SCH ×2 (07:26→21:24)
[2019-09-22] MEDS: multivitamins, therapeutics tablet PO SCH (07:26)
[2019-09-22] MEDS: nicotine 21mg patch - 24 hr TD SCH (07:30)
[2019-09-22 08:00] VITALS: BP 127/82
[2019-09-22 08:47] LABS: CLARITY,URINE CLEAR (Clear); COLOR,URINE YELLOW (Yellow); GLUCOSE, URINE NEGATIVE (Neg); KETONES,URINE NEGATIVE (Neg); LEUKOCYTE ESTERASE ,URINE NEGATIVE (Neg); NITRITES, URINE NEGATIVE (Neg); OCCULT BLOOD,URINE NEGATIVE (Neg); PH,URINE 6.5 (4.8-8.0); PROTEIN,URINE TRACE mg/dl (Neg); UA COLLECTION TYPE CLN CATCH MIDSTREAM; UROBILINOGEN,URINE 0.2 E.U/dL (0.2-1.0)
[2019-09-22 08:53] LABS: BACTERIA,URINE NONE SEEN /HPF (Neg); MUCUS STRANDS FEW /LPF (Neg); RBC,URINE NONE SEEN /HPF (0-2); SQUAMOUS EPITHELIAL CELL,UR NONE SEEN /LPF (FEW); WBC,URINE NONE SEEN /HPF (0-4)
--- NOTE | 2019-09-22 10:09 | NUR ---
Nursing Progress Note: [place] Legal hold: LPS Client on involuntary status for GD Report received from nurse with use of SBAR: Nancy RN Why are they here: Pt. lost his placement at [place] after being hospitalized for a suspected stroke. He was later diagnosed with a pneumonia, and after being transferred to a series of hospitals was admitted to [facility]. PT is LPS conserved. Assessment What has happened this shift: Pt was standing in room at change of shift. He appears anxious and states, "I have committed second degree murder". This story writer asked Pt to elaborate on this and he states "I don't want to talk about it." Pt takes his medications as ordered, however, he declines to take his nicotine replacement patch. He is disheveled in green hospital scrubs and his hair is greasy and unkempt. Pt encouraged to shower. Pt states he might later. He remains paranoid and delusional stating that he "killed someone". Urine obtained for UA order and taken to the lab. S/I, H/I: Denies A/VH: Denies Sleep: naps intermittently ADL's: Independent, however, needs prompting. Group attendance: no Were meds taken: Yes. Any med S/E: None reported or observed. Mental Status Exam Appearance: unbrushed hair, dirty green hospital scrubs Eye contact: Fair Behavior: pacing, somewhat anxious Speech: Clear, normal rate and rhythm Mood: Paranoid Affect: Constricted Thought process: [place] Thought Content: Delusional I murdered somebody Cognition: A&O X4 Insight: Poor Judgment: Poor Interventions PRN's used: none Therapeutic interventions: Maintained a safe and therapeutic environment, provided clear and simple instructions, reoriented to reality, monitored behaviors and need for intervention, encouraged independent performance of ADLs, and maintained Q 15 min safety checks. Restraints/seclusion/emergency medication: N/A Justification of Continued Inpatient Treatment: Pt is [facility] and is awaiting placement to [place]. [place] Public Guardian is assisting in placement.
[2019-09-22] MEDS: traZODone 150mg tablet PO SCH (21:21)
[2019-09-22] MEDS: quetiapine 100mg tablet PO SCH (21:22)
[2019-09-22] MEDS: risperiDONE 0.5mg tablet PO SCH (21:23)
[2019-09-22] MEDS: lithium carbonate 150mg capsule PO SCH (21:23)
--- NOTE | 2019-09-23 01:11 | NUR ---
Nursing Progress Note: Legal hold: LPS Client on involuntary status for GD Report received from nurse with use of SBAR: Seven RN Why are they here: Pt. lost his placement at [place] after being hospitalized for a suspected stroke. He was later diagnosed with a pneumonia, and after being transferred to a series of hospitals was admitted to [facility]. Pt is LPS conserved. Assessment What has happened this shift: Pt continues to fixate on the same paranoias and delusions: "I'm a psycho-maniac that killed someone"; "They are coming to take to me to group home"; "I am locked in here. I can't leave. I need to turn myself in. I did something really bad." Pt appears anxious, restless, and confused. He does not answer most assessment questions and returns to making the aforementioned delusional statements. Pt sat in hallway chair majority of the shift, and had to be directed and redirected to his room multiple times. Pt refusing medications this evening, but eventually agreed to take them. Pt stated he was a bad man and couldn't take them. Pt attempting to sleep at 0015. This RN spoke with CONCHIS Antony re: concerns pt is exhibiting EPS. S/I, H/I: Would not answer A/VH: Would not answer Sleep: See Sleep Assessment ADL's: Independent, needs encouragement and prompting; Needs a shower Group attendance: N/A Were meds taken: Yes Any med S/E: None reported; Pt has increased restlessness of lower limbs; hands are intermittently tremulous; twisting/jutting tongue; Slow, shuffled gait- Possible Akathisia and Tardive Dyskinesia, will continue to monitor Mental Status Exam Appearance: Disheveled; pt hair is oily and scrubs are soiled (Refused shower and new scrub set), slippers Eye contact: Fair Behavior: Pacing halls, Sitting in hallway chair Speech: Soft but clear, normal rate and rhythm Mood: Anxious, Paranoid Affect: Restricted Thought process: Delusional Thought Content: "I'm a psycho-maniac" and persistent delusional statements regarding a murder pt thinks he committed Cognition: A&Ox3 (off for circumstance) Insight: Poor Judgment: Poor Interventions PRN's used: None Therapeutic interventions: Maintained a safe and therapeutic environment, provided clear and simple instructions, reoriented to reality, monitored behaviors and need for intervention, encouraged independent performance of ADLs, and maintained Q 15 min safety checks. Restraints/seclusion/emergency medication: N/A Justification of Continued Inpatient Treatment: Pt is LPS and is awaiting placement to [place]. [place] Public [facility] is assisting in placement.
[2019-09-23] MEDS: lisinopril 5mg tablet PO SCH (07:06)
[2019-09-23] MEDS: lactobacillus rhamnosus 10,000 MMU CELLS/CAPSULE PO SCH ×2 (07:06→20:18)
[2019-09-23] MEDS: levoTHYROXINE 112mcg tablet PO SCH (07:06)
[2019-09-23] MEDS: lamoTRIgine 25mg tablet PO SCH ×2 (07:06→20:17)
[2019-09-23] MEDS: docusate sod 100mg capsule PO SCH ×2 (07:06→20:18)
[2019-09-23] MEDS: pyridoxine 50mg tablet PO SCH (07:06)
[2019-09-23] MEDS: quetiapine 100mg tablet PO SCH ×3 (07:06→20:18)
[2019-09-23] MEDS: multivitamins, therapeutics tablet PO SCH (07:07)
[2019-09-23] MEDS: tamsulosin 0.4mg capsule PO SCH (07:08)
[2019-09-23 08:00] VITALS: BP 107/66
--- NOTE | 2019-09-23 11:09 | NUR ---
DISCHARGE PLANNING Called Stefano Barrett at [facility] (ph# [phone]) to inquire about Ct's placement. He reported there is not any movement on his placement. 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 Inquired about previous medications. He reported Ct has been on the following medications: zyprexa, zoloft, lamictal,seroquel, depakote, trileptal, stelazine (did fairly well on this), lithium He reported antidepressants tend to cause Ct to exhibit manic symptoms. He reported Ct has NOT been on clozaril to his knowledge. VERONIQUE Finney
[2019-09-23 12:32] LABS: EOSINOPHILS # (AUTO) 0.2 X10'3 (0-0.9); MEAN CORPUSCULAR HEMOGLOBIN 32.5 PG (27.0-31.0); MEAN PLATELET VOLUME 7.5 FL (7.4-10.4); MONOCYTES # (AUTO) 0.6 X10'3 (0-0.9); WHITE BLOOD COUNT 8.5 X10'3 (4.5-11.0)
[2019-09-23 12:35] LABS: BASOPHILS % (AUTO) 0.2 % (0-1); EOSINOPHILS % (AUTO) 1.8 % (0-6); HEMATOCRIT 46.4 % (42.0-52.0); LYMPHOCYTES # (AUTO) 1.3 X10'3 (1.1-4.8); LYMPHOCYTES % (AUTO) 15.7 % (21-51); MEAN CORPUSCULAR HGB CONC 34.5 g/dL (33.0-36.5); MEAN CORPUSCULAR VOLUME 94.3 FL (78-98); MONOCYTES % (AUTO) 6.9 % (2-12); NEUTROPHILS # (AUTO) 6.4 X10'3 (1.8-7.7); NEUTROPHILS % (AUTO) 75.4 % (42-75); PLATELET COUNT 208 X10'3 (140-440); RED BLOOD COUNT 4.93 X10'6 (4.70-6.10); RED CELL DISTRIBUTION WIDTH 14.2 % (11.5-14.5)
[2019-09-23] MEDS: LORazepam 1 MG tablet PO PRN (14:26)
--- NOTE | 2019-09-23 14:27 | NUR ---
MEDICATION INFO Stefano Barrett at [facility] (ph# [phone]) called automotive service writer back report that Ct was recently started on clozaril at [facility]. He did not have any information as to why Ct was not still on it. Will pass information on to VERONIQUE Murcia
--- NOTE | 2019-09-23 16:28 | NUR ---
Nursing Progress Note: [place] Legal hold: LPS Client on involuntary status for GD Report received from nurse with use of SBAR: CHERISE Matos Why are they here: Pt. lost his placement at [place] after being hospitalized for a suspected stroke. He was later diagnosed with pneumonia, and after being transferred to a series of hospitals, was admitted to [facility]. PT is LPS conserved. Assessment What has happened this shift: Pt was standing in room at change of shift. He appears anxious and states, "I was born stupid, i don't know what to do". Pt takes his medications as ordered, however, he declines to take his nicotine replacement patch; thisis the second day of this so this medication was discontinued. He is disheveled in green hospital scrubs and his hair is greasy and unkempt. Pt encouraged to shower and he agreed to allow this insurance underwriter to help him bathe and change in to clean green scrubs. He appeared to have some brightening after this. Pt then proceeded to his room to eat his snack and laid down for a nap. When this insurance underwriter attempted to leave his room and allow him to rest, he said "wait". This insurance underwriter asked the patient if he was in pain and he replied no. He answered yes when this insurance underwriter asked if he "just felt crummy" to which the Pt became tearful and replied yes. He remains paranoid and delusional stating that he "fucked up". He ate his lunch with some prompting in the group room. he did not attend groups and was seen getting nude in his room. he was redirectable and put his clothes back on with prompting and minimal assistance. S/I, H/I: Denies A/VH: Denies Sleep: naps intermittently ADL's: Independent, however, needs prompting. Group attendance: no Were meds taken: Yes. Any med S/E: None reported or observed. Mental Status Exam Appearance: clean, clean green scrubs. Eye contact: Fair Behavior: somewhat anxious Speech: Clear, normal rate and rhythm Mood: Paranoid Affect: Constricted Thought process: [place] Thought Content: Delusional I am stupid Cognition: A&O X2 Insight: Poor Judgment: Poor Interventions PRN's used: none Therapeutic interventions: Maintained a safe and therapeutic environment, provided clear and simple instructions, reoriented to reality, monitored behaviors and need for intervention, encouraged independent performance of ADLs, and maintained Q 15 min safety checks. Restraints/seclusion/emergency medication: N/A Justification of Continued Inpatient Treatment: Pt is LPS and is awaiting placement to [place]. [place] Public Guardian is assisting in placement.
[2019-09-23 19:51] VITALS: BP 112/72
[2019-09-23] MEDS: risperiDONE 0.5mg tablet PO SCH (20:16)
[2019-09-23] MEDS: lithium carbonate 150mg capsule PO SCH (20:17)
[2019-09-23] MEDS: traZODone 150mg tablet PO SCH (20:18)
--- NOTE | 2019-09-24 01:09 | NUR ---
Nursing Progress Note: Legal hold: LPS Client on involuntary status for GD Report received from nurse with use of SBAR: Lo RN Why are they here: Pt. lost his placement at [place] after being hospitalized for a suspected stroke. He was later diagnosed with a pneumonia, and after being transferred to a series of hospitals was admitted to [facility]. Pt is LPS conserved. Assessment What has happened this shift: Pt continues to isolate to his room, coming out a couple times naked and requiring redirection. pt reports feeling suicidal because "he is lonely." pt denies Ah/vh. pt was only mild cooperative for 1:1, giving 1 word answers half the time and not answering the other half. S/I, H/I: endorses si A/VH: denies Sleep: See Sleep Assessment ADL's: Needs a shower Group attendance: N/A Were meds taken: Yes Any med S/E: Slow, shuffled gait- Possible Akathisia and Tardive Dyskinesia, will continue to monitor Mental Status Exam Appearance: Disheveled; pt hair is oily and scrubs are soiled (Refused shower and new scrub set), slippers Eye contact: Fair Behavior: isolative Speech: Soft but clear, normal rate and rhythm Mood: Paranoid Affect: Restricted Thought process: Delusional Thought Content: lonely Cognition: A&Ox3 (off for circumstance) Insight: Poor Judgment: Poor Interventions PRN's used: None Therapeutic interventions: Maintained a safe and therapeutic environment, provided clear and simple instructions, reoriented to reality, monitored behaviors and need for intervention, encouraged independent performance of ADLs, and maintained Q 15 min safety checks. Restraints/seclusion/emergency medication: N/A Justification of Continued Inpatient Treatment: Pt is LPS and is awaiting placement to [place]. [place] Public Guardian is assisting in placement.
[2019-09-24 07:22] VITALS: BP 116/71
[2019-09-24] MEDS: levoTHYROXINE 112mcg tablet PO SCH (08:07)
[2019-09-24] MEDS: lamoTRIgine 25mg tablet PO SCH ×2 (08:07→21:28)
[2019-09-24] MEDS: lactobacillus rhamnosus 10,000 MMU CELLS/CAPSULE PO SCH ×2 (08:07→21:28)
[2019-09-24] MEDS: quetiapine 100mg tablet PO SCH ×3 (08:08→21:28)
[2019-09-24] MEDS: lisinopril 5mg tablet PO SCH (08:08)
[2019-09-24] MEDS: docusate sod 100mg capsule PO SCH ×2 (08:08→21:28)
[2019-09-24] MEDS: pyridoxine 50mg tablet PO SCH (08:08)
[2019-09-24] MEDS: tamsulosin 0.4mg capsule PO SCH (08:08)
[2019-09-24] MEDS: multivitamins, therapeutics tablet PO SCH (08:08)
[2019-09-24] MEDS ORDERED: benztropine 1mg tablet PO SCH (11:35)
--- NOTE | 2019-09-24 17:21 | NUR ---
Nursing Progress Note Legal hold: LPS Client on involuntary status for GD Report received from nurse with use of SBAR: CHERISE Lynn Why are they here: Pt. lost his placement at [place] after being hospitalized for a suspected stroke. He was later diagnosed with pneumonia, and after being transferred to a series of hospitals, was admitted to [facility]. PT is LPS conserved. Assessment What has happened this shift: Patient has been confused and delusional today. He came out of his room undressed x 3, and was placed on LOS. Assisted patient with dressing himself on each occasion. He did stay dressed for most of the day after reinforcing and pt. making contract this a.m., but at 3:00 pt. came out of room twice within a 15 minute period of time. Patient states that he has "really screwed up and killed 4 people". Patient displays fearful behavior. Dr. Cordoba came and examined pt. and patient believed he was an FBI agent. Reassurance given that pt. is safe on each conversation. Pt. was having some psychomotor agitation, AEB switching weight from one foot to the other, repetitively. S/I, H/I: Denies A/VH: Denies Sleep: naps intermittently ADL's: Needs assistance, encouragement. Group attendance: no Were meds taken: Yes. Any med S/E: Psychomotor agitation. Mental Status Exam Appearance: clean, green scrubs. Eye contact: Fair Behavior: Confused, coming out of room unclothed, as described. Speech: Soft, clear, slowing. Mood: Paranoid Affect: Fearful. Thought process: Delusions Thought Content: Believes M.D. was FBI, believes he killed 4 people. Cognition: A&O X2 Insight: Impaired. Judgment: Impaired. Interventions PRN's used: none Therapeutic interventions: Maintained a safe and therapeutic environment, provided clear and simple instructions, reoriented to reality, monitored behaviors and need for intervention, encouraged independent performance of ADLs, and maintained Q 15 min safety checks. Restraints/seclusion/emergency medication: N/A Justification of Continued Inpatient Treatment: Pt is LPS and is awaiting placement to [place]. [place] Public Guardian is assisting in placement.
[2019-09-24 20:00] VITALS: BP 112/62
[2019-09-24] MEDS: lithium carbonate 150mg capsule PO SCH (21:27)
[2019-09-24] MEDS: traZODone 150mg tablet PO SCH (21:27)
[2019-09-24] MEDS: CLOZAPINE 25 MG oral disintegrating tablet PO SCH (21:31)
--- NOTE | 2019-09-25 00:02 | NUR ---
Nursing Progress Note Legal hold: [facility] Client on involuntary status for GD Report received from nurse with use of SBAR: CHERISE Blanchard Why are they here: Pt. lost his placement at [place] after being hospitalized for a suspected stroke. He was later diagnosed with pneumonia, and after being transferred to a series of hospitals, was admitted to [facility]. PT is LPS conserved. Assessment What has happened this shift: Patient remains in bed nearly all evening. Patient is awake and delusional. Patient exhibits paranoia. Patient states "the FBI is here, I'm going to senior care, I'm going to hell! I need to get naked to humiliate myself!" This patient exhibits depression. The patient makes poor contact. He denies S/I, H/I, or hallucinations. When patient is advised that he is having delusional thoughts he exhibits no understanding. Patient is disheveled and unkept. His bed linens are dirty. Patient has had nominal intake today per his own admission. The patients bedding is changed. Patient is advised that he is in a safe place. This patient is coached not to disrobe. At the time of this writing he has not. S/I, H/I: Denies. A/VH: Denies. Sleep: naps intermittently ADL's: Needs assistance, encouragement. Group attendance: Not on day shift. Were meds taken: Yes, patient is medication compliant. Any med S/E: Psychomotor agitation per day shift observation. Mental Status Exam Appearance: Disheveled wearing green scrubs. Eye contact: Poor. Behavior: Agitated. Speech: Soft, clear, slowing. Mood: Restless. Affect: Fearful. Thought process: Delusions Thought Content: Believes the FBI is here to take him to senior care. Cognition: A&O X2 Insight: Impaired. Judgment: Impaired. Interventions PRN's used: none Therapeutic interventions: Maintained a safe and therapeutic environment, provided clear and simple instructions, reoriented to reality, monitored behaviors and need for intervention, encouraged independent performance of ADLs, and maintained Q 15 min safety checks. Restraints/seclusion/emergency medication: N/A Justification of Continued Inpatient Treatment: Pt is LPS and is awaiting placement to [place]. [place] Public Guardian is assisting in placement.
[2019-09-25 07:00] VITALS: BP 96/59
[2019-09-25] MEDS: levoTHYROXINE 112mcg tablet PO SCH (07:22)
[2019-09-25] MEDS: quetiapine 100mg tablet PO SCH ×4 (07:22→21:05)
[2019-09-25] MEDS: pyridoxine 50mg tablet PO SCH (08:02)
[2019-09-25] MEDS: multivitamins, therapeutics tablet PO SCH (08:03)
[2019-09-25] MEDS: lactobacillus rhamnosus 10,000 MMU CELLS/CAPSULE PO SCH ×2 (08:03→21:05)
[2019-09-25] MEDS: docusate sod 100mg capsule PO SCH ×2 (08:03→21:05)
[2019-09-25] MEDS: tamsulosin 0.4mg capsule PO SCH (08:03)
[2019-09-25] MEDS: lamoTRIgine 25mg tablet PO SCH ×2 (08:03→21:05)
[2019-09-25] MEDS: lisinopril 5mg tablet PO SCH (08:04)
[2019-09-25] MEDS ORDERED: etomidate 2mg/ml inj. ONE (14:00)
--- NOTE | 2019-09-25 17:56 | NUR ---
Nursing Progress Note: Legal hold: LPS Client on involuntary status for GD Report received from nurse with use of SBAR: Leah RN Why are they here: Pt. lost his placement at [facility] after being hospitalized for a suspected stroke. He was later diagnosed with pneumonia, and after being transferred to a series of hospitals, was admitted to [facility]. PT is LPS conserved. Assessment What has happened this shift: Pt. States that he had a good night sleep and has been sleeping most of the day. Patient only will state that he killed his family, sisters and brothers. Reinforced to patient that he is having bad thoughts in his head and that is not real, reassurance given. No incidences of public nudity today as he has stayed dressed all day. S/I, H/I: Passively suicidal. No plan. A/VH: Denies Sleep: Slept throughout day on and off. ADL's: Needs assistance, encouragement. Group attendance: no Were meds taken: Yes. Any med S/E: None noted. Mental Status Exam Appearance: Freshly showered in green scrubs. Eye contact: Fair Behavior: Sleeping. Speech: Soft, clear, slowing. Mood: Paranoid Affect: Fearful. Thought process: Delusions Thought Content: Pt. Thinks that he killed his family. Cognition: A&O X2 Insight: Impaired. Judgment: Impaired. Interventions PRN's used: none Therapeutic interventions: Maintained a safe and therapeutic environment, provided clear and simple instructions, reoriented to reality, monitored behaviors and need for intervention, encouraged independent performance of ADLs, and maintained Q 15 min safety checks. Restraints/seclusion/emergency medication: N/A Justification of Continued Inpatient Treatment: Pt is LPS and is awaiting placement to [place]. [place] [facility] is assisting in placement.
[2019-09-25] MEDS: traZODone 150mg tablet PO SCH (21:05)
[2019-09-25] MEDS: lithium carbonate 150mg capsule PO SCH (21:05)
[2019-09-25] MEDS: CLOZAPINE 25 MG oral disintegrating tablet PO SCH (21:05)
[2019-09-25] MEDS: LORazepam 1 MG tablet PO PRN (22:52)
--- NOTE | 2019-09-26 02:15 | NUR ---
Nursing Progress Note: Legal hold: LPS Client on involuntary status for GD Report received from nurse with use of SBAR: Lo RN Why are they here: Pt. lost his placement at [place] after being hospitalized for a suspected stroke. He was later diagnosed with a pneumonia, and after being transferred to a series of hospitals was admitted to [facility]. Pt is LPS conserved. Assessment What has happened this shift: Pt continues to fixate on the same paranoias and delusions: "I messed up real bad. I'm a psycho-maniac. I killed them. They are gone. I didn't mean to. The consequences, the consequences. I'm terrible. It's all falling apart now."This RN reinforced reality and reassured pt he is still conserved and that placement can take longer than intended. Pt would occasionally pat bliss and state that "I really let myself go." but declined grooming assistance, stating: "No, no, I can't. I messed up". Pt took multiple attempts of redirection before he went to his room and fell asleep. Pt exhibits anguish from his delusions, stating "They are real. I'm telling the truth" while becoming teary eyed. S/I, H/I: Denies A/VH: Denies Sleep: See Sleep Assessment ADL's: Requires assistance in current state;; Needs a shower & shave Group attendance: N/A Were meds taken: Yes Any med S/E: None reported; Pt exhibiting possible Akathisia and Tardive Dyskinesia, will continue to monitor Mental Status Exam Appearance: Disheveled with unruly bliss (declined shave this kandi), pt hair is oily (showered 09/24) and scrubs are soiled (Refused new scrub set), nonskid socks Eye contact: Intermittent Behavior: Pacing halls, Isolating to room Speech: Soft but clear, normal rate and rhythm Mood: Anxious, Paranoid Affect: Restricted Thought process: Delusional Thought Content: Persistent delusional statements regarding a murder pt thinks he committed/family being in danger or ; thinking he is no longer conserved and homeless Cognition: A&Ox3 (off for circumstance) Insight: Poor Judgment: Poor Interventions PRN's used: None Therapeutic interventions: Maintained a safe and therapeutic environment, provided clear and simple instructions, reoriented to reality, monitored behaviors and need for intervention, encouraged independent performance of ADLs, and maintained Q 15 min safety checks. Restraints/seclusion/emergency medication: N/A Justification of Continued Inpatient Treatment: Pt is LPS and is awaiting placement to [place]. [place] [facility] is assisting in placement.
[2019-09-26] MEDS: pyridoxine 50mg tablet PO SCH (08:06)
[2019-09-26] MEDS: tamsulosin 0.4mg capsule PO SCH (08:06)
[2019-09-26] MEDS: levoTHYROXINE 112mcg tablet PO SCH (08:06)
[2019-09-26] MEDS: multivitamins, therapeutics tablet PO SCH (08:07)
[2019-09-26] MEDS: lamoTRIgine 25mg tablet PO SCH ×2 (08:07→20:47)
[2019-09-26] MEDS: docusate sod 100mg capsule PO SCH ×2 (08:08→20:47)
[2019-09-26] MEDS: lisinopril 5mg tablet PO SCH (08:08)
[2019-09-26] MEDS: lactobacillus rhamnosus 10,000 MMU CELLS/CAPSULE PO SCH ×2 (08:08→20:46)
[2019-09-26 08:46] VITALS: BP 121/89
--- NOTE | 2019-09-26 12:32 | NUR ---
Reassessment: Pt PO 75-100% avg meals meeting needs. LBM 08/24. No nutrition concerns at this time. Will continue to monitor. Recommend: 1. continue regular diet 2. bowel care as needed 3. weight per rx Addendum: 09/26/19 at [address] Amended: Links added.
[2019-09-26] MEDS: quetiapine 100mg tablet PO SCH ×2 (12:48→20:47)
--- NOTE | 2019-09-26 17:00 | NUR ---
Nursing Progress Note: Legal hold: LPS Client on involuntary status for GD Report received from nurse with use of SBAR: CHERISE Lynn Why are they here: Pt. lost his placement at [place] after being hospitalized for a suspected stroke. He was later diagnosed with a pneumonia, and after being transferred to a series of hospitals was admitted to [facility]. Pt is LPS conserved. Assessment What has happened this shift: Pt. awake at start of shift, RN approached pt. standing in hallway for introduction but pt. mumbled something and then walked away. Pt. took medications and ate breakfast but refused physical assessment. Pt. appears suspicious of this RN. Pt. does not go to groups. Pt. seen pacing the hallways. Pt. offers minimal information when questioned, RN asked, Do you want to shower? Pt. states, I am a psychopath killer People are dying right now Just got to deal with it now. S/I, H/I: Denies A/VH: Denies Sleep: Pt. napped in AM. ADL's: Pt. needs prompting Group attendance: No Were meds taken: Yes Any med S/E: Pt. has rigid walk. Mental Status Exam Appearance: Pt. is disheveled. RN asked pt. if he wanted to shower but pt. refused. Eye contact: Intermittent Behavior: Pacing halls, Isolating to room Speech: Soft but clear, normal rate and rhythm Mood: Anxious, Paranoid Affect: Restricted Thought process: Delusional Thought Content: Persistent delusional statements regarding a murder pt thinks he committed/family being in danger or ; thinking he is no longer conserved and homeless Cognition: A&Ox3 (off for circumstance) Insight: Poor Judgment: Poor Interventions PRN's used: None Therapeutic interventions: Maintained a safe and therapeutic environment, provided clear and simple instructions, reoriented to reality, monitored behaviors and need for intervention, encouraged independent performance of ADLs, and maintained Q 15 min safety checks. Restraints/seclusion/emergency medication: N/A Justification of Continued Inpatient Treatment: Pt is LPS and is awaiting placement to [place]. [place] [facility] is assisting in placement.
[2019-09-26 19:35] VITALS: BP 112/56
[2019-09-26] MEDS: lithium carbonate 150mg capsule PO SCH (20:46)
[2019-09-26] MEDS: CLOZAPINE 100 MG TAB.RAPDIS PO SCH (20:47)
[2019-09-26] MEDS: traZODone 150mg tablet PO SCH (20:47)
--- NOTE | 2019-09-27 00:31 | NUR ---
Nursing Progress Note: Legal hold: LPS Client on involuntary status for GD Report received from nurse with use of SBAR: CHERISE Sampson Why are they here: Pt. lost his placement at [place] [facility] after being hospitalized for a suspected stroke. He was later diagnosed with a pneumonia, and after being transferred to a series of hospitals was admitted to [facility]. Pt is LPS conserved. Assessment What has happened this shift: Pt was sleeping during shift change. He then got up and was walking down the isles. Pt seemed very confused and paranoid. When asked about how he was he said he was feeling terrible. Pt refused most of physical assessment by was compliant with his medications. Pt was very delusional and was focused on thinking that he was in trouble. "I messed up again. I can't believe I let it get this far. I'm homicidal, I see myself killing people left and right. 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 My life is over. I want to go home now." He kept walking around and his gait was a little unstable. When asked if he wanted to go to his room and lay down, he said that he couldn't go in there. Eventually, pt was convinced to go to his room and he slept for most of the night. Thought blocking was also observed. S/I, H/I: Denies A/VH: pt sates he sees himself killing people Sleep: see sleep assessment ADL's: Pt. 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 has rigid walk. Mental Status Exam Appearance: Pt. is disheveled. Dirty green scrubs and greasy hair. Eye contact: Intermittent Behavior: Pacing halls, Isolating to room, paranoid Speech: Soft but clear, normal rate and rhythm Mood: Anxious, guarding Affect: Restricted Thought process: Delusional Thought Content: Persistent delusional statements regarding a murder pt thinks he is trouble and homicidal. Cognition: A&Ox3 (off for circumstance) Insight: Poor Judgment: Poor Interventions PRN's used: None Therapeutic interventions: Maintained a safe and therapeutic environment, provided clear and simple instructions, reoriented to reality, monitored behaviors and need for intervention, encouraged independent performance of ADLs, and maintained Q 15 min safety checks. Restraints/seclusion/emergency medication: N/A Justification of Continued Inpatient Treatment: Pt is LPS and is awaiting placement to [place]. [place] [facility] is assisting in placement.
[2019-09-27] MEDS: lisinopril 5mg tablet PO SCH (08:05)
[2019-09-27] MEDS: quetiapine 100mg tablet PO SCH ×3 (08:05→21:23)
[2019-09-27] MEDS: tamsulosin 0.4mg capsule PO SCH (08:06)
[2019-09-27] MEDS: levoTHYROXINE 112mcg tablet PO SCH (08:06)
[2019-09-27] MEDS: docusate sod 100mg capsule PO SCH ×2 (08:07→21:23)
[2019-09-27] MEDS: multivitamins, therapeutics tablet PO SCH (08:07)
[2019-09-27] MEDS: lamoTRIgine 25mg tablet PO SCH ×2 (08:07→21:23)
[2019-09-27] MEDS: lactobacillus rhamnosus 10,000 MMU CELLS/CAPSULE PO SCH ×2 (08:07→21:23)
[2019-09-27] MEDS: pyridoxine 50mg tablet PO SCH (08:07)
[2019-09-27 08:23] VITALS: BP 106/67
--- NOTE | 2019-09-27 17:15 | NUR ---
Nursing Progress Note: Legal hold: LPS Client on involuntary status for GD Report received from nurse with use of SBAR: Marlen RN Why are they here: Pt. lost his placement at [place] after being hospitalized for a suspected stroke. He was later diagnosed with a pneumonia, and after being transferred to a series of hospitals was admitted to [facility]. Pt is LPS conserved. Assessment What has happened this shift: Pt. asleep at start of shift. Pt. in awoke for breakfast and took medications. Pt. ate all meals in community room. Pt. internally preoccupied but denies hearing voices. Pt. denies SI, A/V Hallucinations. Pt. appears very anxious, sullen, stating, I killed them. How could I do that?... Im worried. Unable to ground pt. in reality. Pt. sitting in chair in hallway majority of the day. Pt. encouraged to shower but refused. Pt. encouraged to change clothes but refused. Pt. eventually agreed to change his clothes. S/I, H/I: Pt. believes he is a murderer but does not specify against who. A/VH: Denies Sleep: Pt. did not nap during day shift. ADL's: Prompting given but pt. refuses. Group attendance: No Were meds taken: Yes Any med S/E: Pt. has rigid walk. Mental Status Exam Appearance: Pt. is disheveled. [place] hair, clean scrubs. Eye contact: Intermittent Behavior: Pacing halls, Isolating to room Speech: Soft but clear, normal rate and rhythm Mood: Anxious, guarding Affect: constricted Thought process: disorganized, delusional, paranoid. Thought Content: Persistent delusional statements regarding being a psychopath killer Cognition: A&Ox3 (off for circumstance) Insight: Poor Judgment: Poor Interventions PRN's used: None Therapeutic interventions: Maintained a safe and therapeutic environment, provided clear and simple instructions, reoriented to reality, monitored behaviors and need for intervention, encouraged independent performance of ADLs, and maintained Q 15 min safety checks. Restraints/seclusion/emergency medication: N/A Justification of Continued Inpatient Treatment: Pt is LPS and is awaiting placement to [place]. [place] [facility] is assisting in placement.
[2019-09-27 20:00] VITALS: BP 108/78
[2019-09-27] MEDS: traZODone 150mg tablet PO SCH (21:23)
[2019-09-27] MEDS: lithium carbonate 150mg capsule PO SCH (21:23)
[2019-09-27] MEDS: CLOZAPINE 100 MG TAB.RAPDIS PO SCH (21:23)
--- NOTE | 2019-09-28 01:04 | NUR ---
Nursing Progress Note: Legal hold: LPS Client on involuntary status for GD Report received from nurse with use of SBAR: CHERISE Sampson Why are they here: Pt. lost his placement at [place] after being hospitalized for a suspected stroke. He was later diagnosed with a pneumonia, and after being transferred to a series of hospitals was admitted to [facility]. Pt is LPS conserved. Assessment What has happened this shift: Pt was seen sitting in chair outside nursing stating during shift change. Pt appears to be less anxious and paranoid. When asked about how his day was he stated that it was alright and that he ate all his dinner even though it was lousy. More cooperative for 1:1 physical assessment and when asked if he wanted to go to his room for his med, he agreed. Pt denies any A/H and only made a few delusional statements. Same as before "I killed people, my family is in trouble". However, during his physical assessment, most of this answers were short but appropriate. Took all his medications without any problems and after this he laid down and went to sleep. The was some shacking of his hands observed and his gait seemed somewhat unstable. Pt remained in his room sleeping for most of the night. 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 has rigid walk, some tardive dyskinesia Mental Status Exam Appearance: Pt. is disheveled. [place] hair, clean scrubs. Eye contact: Intermittent Behavior: Cooperative with minimal paranoia Speech: Soft but clear, normal rate and rhythm Mood: Guarding, isolative Affect: constricted Thought process: disorganized, delusional Thought Content: him being a killer, his family is in trouble Cognition: A&Ox3 (off for circumstance) Insight: Poor Judgment: Poor Interventions PRN's used: None Therapeutic interventions: Maintained a safe and therapeutic environment, provided clear and simple instructions, reoriented to reality, monitored behaviors and need for intervention, encouraged independent performance of ADLs, and maintained Q 15 min safety checks. Restraints/seclusion/emergency medication: N/A Justification of Continued Inpatient Treatment: Pt is LPS and is awaiting placement to [place]. [place] [facility] is assisting in placement.
[2019-09-28 07:11] VITALS: BP 97/63
[2019-09-28] MEDS: quetiapine 100mg tablet PO SCH ×3 (07:58→20:43)
[2019-09-28] MEDS: lamoTRIgine 25mg tablet PO SCH ×2 (07:59→20:43)
[2019-09-28] MEDS: lactobacillus rhamnosus 10,000 MMU CELLS/CAPSULE PO SCH ×2 (07:59→20:43)
[2019-09-28] MEDS: multivitamins, therapeutics tablet PO SCH (08:00)
[2019-09-28] MEDS: lisinopril 5mg tablet PO SCH (08:00)
[2019-09-28] MEDS: docusate sod 100mg capsule PO SCH (08:01)
[2019-09-28] MEDS: tamsulosin 0.4mg capsule PO SCH (08:01)
[2019-09-28] MEDS: levoTHYROXINE 112mcg tablet PO SCH (08:01)
[2019-09-28] MEDS: pyridoxine 50mg tablet PO SCH (08:01)
[2019-09-28] MEDS ORDERED: docusate sod 100mg capsule PO PRN (17:40)
--- NOTE | 2019-09-28 18:00 | NUR ---
Nursing Progress Note: Legal hold: LPS Client on involuntary status for GD Report received from nurse with use of SBAR: CHERISE Mejia Why are they here: Pt. lost his placement at [place] after being hospitalized for a suspected stroke. He was later diagnosed with a pneumonia, and after being transferred to a series of hospitals was admitted to [facility]. Pt is LPS conserved. Assessment What has happened this shift: Pt. asleep at start of shift. Pt. woke up for breakfast and ate all meals in community room. Pt. took all medications. Pt. isolative and lying in bed all day. Pt. refused to go to groups. Pt. refused shower in the AM but eventually agreed to shower in the afternoon. 1:1 done at bedside. Pt. refused physical assessment. Pt. denies SI/HI, A/V hallucinations. Pt. does not appear to be responding to internal stimuli today. Pt. is anxious, states, bad things are happening to people in the world, bad things happening to my friends. Pt. did not offer more information when questioned on these worries. Pt. c/o constipation and magnesium citrate ordered. SI/HI: Denies A/VH: Denies Sleep: see sleep assessment ADL's: independent with some prompting. Pt. showered today. Group attendance: No Were meds taken: Yes Any med S/E: Pt.s walk is less rigid today. Mental Status Exam Appearance: Pt. is showered but disheveled, wearing green scrubs. Eye contact: Intermittent Behavior: Isolative but more cooperative with less paranoia today. Speech: Soft but clear, normal rate and rhythm Mood: guarded, anxious Affect: constricted Thought process: disorganized, delusional Thought Content: Worried about his friends Cognition: A&Ox3 (off for circumstance) Insight: Poor Judgment: Poor Interventions PRN's used: None Therapeutic interventions: Maintained a safe and therapeutic environment, provided clear and simple instructions, reoriented to reality, monitored behaviors and need for intervention, encouraged independent performance of ADLs, and maintained Q 15 min safety checks. Restraints/seclusion/emergency medication: N/A Justification of Continued Inpatient Treatment: Pt is LPS and is awaiting placement to [place]. [place] [facility] is assisting in placement.
[2019-09-28] MEDS: magnesium citrate 296ml oral solution PO ONE ×2 (18:47→20:30)
[2019-09-28 20:21] VITALS: BP 90/51
[2019-09-28] MEDS: CLOZAPINE 100 MG TAB.RAPDIS PO SCH (20:42)
[2019-09-28] MEDS: lithium carbonate 150mg capsule PO SCH (20:43)
[2019-09-28] MEDS: CLOZAPINE 25 MG oral disintegrating tablet PO SCH (20:43)
[2019-09-28] MEDS: traZODone 150mg tablet PO SCH (20:43)
--- NOTE | 2019-09-29 00:15 | NUR ---
Nursing Progress Note: Legal hold: LPS Client on involuntary status for GD Report received from nurse with use of SBAR: CHERISE Sampson Why are they here: Pt. lost his placement at [place] after being hospitalized for a suspected stroke. He was later diagnosed with a pneumonia, and after being transferred to a series of hospitals was admitted to [facility]. Pt is LPS conserved. Assessment What has happened this shift: Pt was in room resting peacefully in bed on his left during shift change. Appears to be in no distress. Pt was cooperative during 1:1 physical assessment and compliant with all his PM medications. Patient did not appeared as paranoid or confused but did make some delusional statements. "I have a guilty conscious, I killed a bunch of people." Pt stated that he did not eat dinner and just did not feel hungry. Offered pt a snack and he ate a PB&J sandwich. Administered ordered Magnesium Citrate for constipation and patient also took this with no problems. Pt then got up around 2300 and started walking down the isles. Began to make more delusional statements. Pt seemed more agitated and confused and refused to go to sleep or lay down. States that he cannot go into his room because he did something really terrible. Offered patient reassurance without success. Patient also denies a bowl movement at this time. Will continue to monitor. A/VH: Denies Sleep: see sleep assessment ADL's: independent with needing some prompting. 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 is showered but disheveled, wearing green scrubs. Eye contact: Intermittent Behavior: Isolative, paranoid, resistive to care Speech: Soft but clear, normal rate and rhythm Mood: guarded, anxious Affect: constricted Thought process: disorganized, delusional Thought Content: worried he did something terrible, killed a bunch of people, guilty conscious Cognition: A&Ox3 (off for circumstance) Insight: Poor Judgment: Poor Interventions PRN's used: None Therapeutic interventions: Maintained a safe and therapeutic environment, provided clear and simple instructions, reoriented to reality, monitored behaviors and need for intervention, encouraged independent performance of ADLs, and maintained Q 15 min safety checks. Restraints/seclusion/emergency medication: N/A Justification of Continued Inpatient Treatment: Pt is LPS and is awaiting placement to [place]. [place] [facility] is assisting in placement.
[2019-09-29 07:14] VITALS: BP 90/54
[2019-09-29] MEDS: levoTHYROXINE 112mcg tablet PO SCH (07:29)
[2019-09-29] MEDS: pyridoxine 50mg tablet PO SCH (07:30)
[2019-09-29] MEDS: multivitamins, therapeutics tablet PO SCH (07:30)
[2019-09-29] MEDS: QUEtiapine 25mg tablet PO SCH ×2 (07:30→12:19)
[2019-09-29] MEDS: tamsulosin 0.4mg capsule PO SCH (07:30)
[2019-09-29] MEDS: lamoTRIgine 25mg tablet PO SCH ×2 (07:30→20:08)
[2019-09-29] MEDS: lactobacillus rhamnosus 10,000 MMU CELLS/CAPSULE PO SCH ×2 (07:30→20:09)
[2019-09-29] MEDS: lisinopril 5mg tablet PO SCH (07:51)
--- NOTE | 2019-09-29 17:06 | NUR ---
Nursing Progress Note: Legal hold: LPS Client on involuntary status for GD Report received from nurse with use of SBAR: CHERISE Matos Why are they here: Pt. lost his placement at [place] after being hospitalized for a suspected stroke. He was later diagnosed with a pneumonia, and after being transferred to a series of hospitals was admitted to [facility]. Pt is LPS conserved. Assessment What has happened this shift: Patient sleeping upon change of shift. Pt. was able to eat meals, then goes to bed, sleeping soundly. Pt. continues to have fixed delusions AEB patient stating that he has killed many people, and that the FBI came here and visited him. Reassurance of safety given. BP was 90/54, Zestril held. Pt. encouraged to drink more fluids, apple-water juice provided. SI/HI: Denies A/VH: Denies Sleep: Pt. sleeping throughout the day. ADL's: independent with some prompting. Group attendance: No Were meds taken: Yes Any med S/E: Pt.s walk is less rigid today. Mental Status Exam Appearance: Pt. is disheveled in green scrubs. Eye contact: Intermittent Behavior: Sleeping. Speech: Soft but clear, paucity of thought Mood: Depressed. Affect: constricted Thought process: disorganized, delusional Thought Content: Tortured over delusions that he has killed people. Cognition: A&Ox3 (off for circumstance) Insight: Poor Judgment: Poor Interventions PRN's used: None Therapeutic interventions: Maintained a safe and therapeutic environment, provided clear and simple instructions, reoriented to reality, monitored behaviors and need for intervention, encouraged independent performance of ADLs, and maintained Q 15 min safety checks. Restraints/seclusion/emergency medication: N/A Justification of Continued Inpatient Treatment: Pt is LPS and is awaiting placement to [place]. [place] [facility] is assisting in placement.
[2019-09-29 19:49] VITALS: BP 94/55
[2019-09-29] MEDS: lithium carbonate 150mg capsule PO SCH (20:07)
[2019-09-29] MEDS: quetiapine 100mg tablet PO SCH (20:08)
[2019-09-29] MEDS: traZODone 150mg tablet PO SCH (20:08)
[2019-09-29] MEDS: CLOZAPINE 25 MG oral disintegrating tablet PO SCH (20:08)
[2019-09-29] MEDS: CLOZAPINE 100 MG TAB.RAPDIS PO SCH (20:08)
--- NOTE | 2019-09-29 22:05 | NUR ---
Nursing Progress Note: Legal hold: LPS Client on involuntary status for GD Report received from nurse with use of SBAR: CHERISE Sampson Why are they here: Pt. lost his placement at [place] after being hospitalized for a suspected stroke. He was later diagnosed with a pneumonia, and after being transferred to a series of hospitals was admitted to [facility]. Pt is LPS conserved. Assessment What has happened this shift: Pt was in bed at change of shift. Pt continues to have fisxed delusions stating he is here for killing someone then adds "but Im actually a serial killer and I'm in a lot of trouble." SI/HI: Denies A/VH: Denies Sleep: Pt. sleeping throughout the day. ADL's: independent with some prompting. Group attendance: No Were meds taken: Yes Any med S/E: none reported or observed Mental Status Exam Appearance: Pt. is disheveled in green scrubs, refuses shower. Eye contact: Intermittent Behavior: Sleeping. Speech: Soft but clear, paucity of thought Mood: Depressed. Affect: constricted Thought process: disorganized, delusional Thought Content: Tortured over delusions that he has killed people. Cognition: A&Ox3 (off for circumstance) Insight: Poor Judgment: Poor Interventions PRN's used: None Therapeutic interventions: Maintained a safe and therapeutic environment, provided clear and simple instructions, reoriented to reality, monitored behaviors and need for intervention, encouraged independent performance of ADLs, and maintained Q 15 min safety checks. Restraints/seclusion/emergency medication: N/A Justification of Continued Inpatient Treatment: Pt is LPS and is awaiting placement to [place]. [place] [facility] is assisting in placement.
[2019-09-30 07:28] LABS: BASOPHILS % (AUTO) 0.3 % (0-1); EOSINOPHILS # (AUTO) 0.3 X10'3 (0-0.9); EOSINOPHILS % (AUTO) 2.7 % (0-6); HEMOGLOBIN 14.3 g/dl (14.0-17.9); LYMPHOCYTES # (AUTO) 1.4 X10'3 (1.1-4.8); LYMPHOCYTES % (AUTO) 12.7 % (21-51); MEAN CORPUSCULAR HEMOGLOBIN 32.1 PG (27.0-31.0); MEAN CORPUSCULAR HGB CONC 34.9 g/dL (33.0-36.5); MEAN PLATELET VOLUME 7.9 FL (7.4-10.4); MONOCYTES # (AUTO) 1.1 X10'3 (0-0.9); MONOCYTES % (AUTO) 10.1 % (2-12); NEUTROPHILS # (AUTO) 8.4 X10'3 (1.8-7.7); NEUTROPHILS % (AUTO) 74.2 % (42-75); PLATELET COUNT 205 X10'3 (140-440); RED BLOOD COUNT 4.46 X10'6 (4.70-6.10); RED CELL DISTRIBUTION WIDTH 13.8 % (11.5-14.5); WHITE BLOOD COUNT 11.3 X10'3 (4.5-11.0)
[2019-09-30 08:00] VITALS: BP 84/59
[2019-09-30] MEDS: lisinopril 5mg tablet PO SCH (08:00)
[2019-09-30] MEDS: QUEtiapine 25mg tablet PO SCH ×2 (08:24→12:12)
[2019-09-30] MEDS: levoTHYROXINE 112mcg tablet PO SCH (08:24)
[2019-09-30] MEDS: lactobacillus rhamnosus 10,000 MMU CELLS/CAPSULE PO SCH ×2 (08:25→20:17)
[2019-09-30] MEDS: tamsulosin 0.4mg capsule PO SCH (08:25)
[2019-09-30] MEDS: lamoTRIgine 25mg tablet PO SCH ×2 (08:25→20:16)
[2019-09-30] MEDS: pyridoxine 50mg tablet PO SCH (08:26)
[2019-09-30] MEDS: multivitamins, therapeutics tablet PO SCH (08:26)
--- NOTE | 2019-09-30 08:55 | NUR ---
PLACEMENT Called Stefano Barrett at [facility] (ph# [phone]) to inquire about Ct's placement. Left message requesting a call back. VERONIQUE Finney
--- NOTE | 2019-09-30 16:39 | NUR ---
Nursing Progress Note: Legal hold: LPS Client on involuntary status for GD Report received from nurse Jennifer RN with use of SBAR: Why are they here: Pt. lost his placement at [facility] after being hospitalized for a suspected stroke. He was later diagnosed with a pneumonia, and after being transferred to a series of hospitals was admitted to [facility]. Pt is LPS conserved. Assessment What has happened this shift: Patient stays in bed all day and is only up for meals and to go to the . When RN went to give patient meds this morning, patient was in the bathroom cussing because he accidently urinated on the floor. Patient states he is taking too many medications and this is what happens when he takes that many meds. Patient did take his medications after the outburst. Later in the afternoon RN spoke with the patient as he laid in bed awake. Patient states he can't sleep because he has a lot on his mind. RN advised patient that if he gets out and walks around he might be tired at bedtime. Patient states he has too much on his mind with his relatives. Patient stated that he ruined them because he told them he was god. He then said "you wouldn't understand". Patient denied suicidal ideation also denied wanting to . SI/HI: Denies A/VH: Denies Sleep: Pt. sleeping throughout the day. ADL's: independent with some prompting. Group attendance: No Were meds taken: Yes Any med S/E: none Mental Status Exam Appearance: Pt. is disheveled in green scrubs. Eye contact: Intermittent Behavior: Sleeping. Speech: Soft but clear Mood: Depressed. Affect: constricted Thought process: disorganized, delusional Thought Content: Tortured over delusions Cognition: A&Ox3 Insight: Poor Judgment: Poor Interventions PRN's used: None Therapeutic interventions: Maintained a safe and therapeutic environment, provided clear and simple instructions, reoriented to reality, monitored behaviors and need for intervention, encouraged independent performance of ADLs, and maintained Q 15 min safety checks. Restraints/seclusion/emergency medication: N/A Justification of Continued Inpatient Treatment: Pt is LPS and is awaiting placement to [place]. [place] Public Guardian is assisting in placement.
[2019-09-30 20:08] VITALS: BP 109/72
[2019-09-30] MEDS: lithium carbonate 150mg capsule PO SCH (20:16)
[2019-09-30] MEDS: clozapine 100mg tablet PO SCH (20:17)
[2019-09-30] MEDS: quetiapine 100mg tablet PO SCH (20:17)
[2019-09-30] MEDS: traZODone 150mg tablet PO SCH (20:18)
--- NOTE | 2019-09-30 20:56 | NUR ---
Nursing Progress Note: Legal hold: LPS Client on involuntary status for GD Report received from nurse Adrián LUONG with use of SBAR: Why are they here: Pt. lost his placement at [facility] after being hospitalized for a suspected stroke. He was later diagnosed with a pneumonia, and after being transferred to a series of hospitals was admitted to [facility]. Pt is LPS conserved. Assessment What has happened this shift:Pt was in bed at change of shift. Pt was pleasant and smiling, denies s/i, denies a/vh. Reports no complaints. Pt states he had a good day. Pt was encouraged to get out of bed and join the group or watch tv, pt states he wants to stay in bed. Pt is med compliant. SI/HI: Denies A/VH: Denies Sleep: see sleep hours ADL's: independent with some prompting. Group attendance: No Were meds taken: Yes Any med S/E: none Mental Status Exam Appearance: Pt. is disheveled in green scrubs, encouraged to shower and pt declined to do so. Eye contact: fair Behavior: resting in bed Speech: Soft but clear Mood: Depressed. Affect: constricted Thought process: disorganized, delusional Thought Content: staying in bed. Pt did not mention any delusions tonight. Cognition: A&Ox3 Insight: Poor Judgment: Poor Interventions PRN's used: None Therapeutic interventions: Maintained a safe and therapeutic environment, provided clear and simple instructions, reoriented to reality, monitored behaviors and need for intervention, encouraged independent performance of ADLs, and maintained Q 15 min safety checks. Restraints/seclusion/emergency medication: N/A Justification of Continued Inpatient Treatment: Pt is LPS and is awaiting placement to [place]. [place] Public Guardian is assisting in placement.
[2019-10-01 07:50] VITALS: BP 121/80
[2019-10-01] MEDS: lactobacillus rhamnosus 10,000 MMU CELLS/CAPSULE PO SCH ×2 (07:51→20:36)
[2019-10-01] MEDS: multivitamins, therapeutics tablet PO SCH (07:52)
[2019-10-01] MEDS: lamoTRIgine 25mg tablet PO SCH ×2 (07:52→20:35)
[2019-10-01] MEDS: QUEtiapine 25mg tablet PO SCH ×2 (07:52→13:15)
[2019-10-01] MEDS: pyridoxine 50mg tablet PO SCH (07:52)
[2019-10-01] MEDS: levoTHYROXINE 112mcg tablet PO SCH (07:52)
[2019-10-01] MEDS: tamsulosin 0.4mg capsule PO SCH (07:52)
[2019-10-01] MEDS: lisinopril 5mg tablet PO SCH (07:53)
--- NOTE | 2019-10-01 17:31 | NUR ---
Nursing Progress Note: Legal hold: LPS Client on involuntary status for GD Report received from nurse Lynn RN with use of SBAR: Why are they here: Pt. lost his placement at [facility] after being hospitalized for a suspected stroke. He was later diagnosed with a pneumonia, and after being transferred to a series of hospitals was admitted to [facility]. Pt is LPS conserved. Assessment What has happened this shift: During med pass, the patient states that he saw an apple in his bed and when he reached for it, it wasnt there. Patient complains about being overmedicated and wants to talk to the doctor about reducing his medications. Patient did take his medications. Patient later came out into hallway and made phone call, walked around a little. Talking a little more today. Patient has been in the group room this afternoon. SI/HI: Denies A/VH: Denies Sleep: 7.5 hrs. NOC. ADL's: independent with some prompting. Group attendance: Yes, afternoon group. Were meds taken: Yes Any med S/E: none Mental Status Exam Appearance: Freshly showered, hair combed, in green scrubs. Eye contact: Intermittent Behavior: Sleeping., isolative Speech: Soft but clear Mood: Depressed. Affect: constricted Thought process: disorganized, delusional Thought Content: Tortured over delusions Cognition: A&Ox3 Insight: Poor Judgment: Poor Interventions PRN's used: None Therapeutic interventions: Maintained a safe and therapeutic environment, provided clear and simple instructions, reoriented to reality, monitored behaviors and need for intervention, encouraged independent performance of ADLs, encouraged increase in p.o. Intake, and maintained Q 15 min safety checks. Restraints/seclusion/emergency medication: N/A Justification of Continued Inpatient Treatment: Pt is LPS and is awaiting placement to [place]. [place] Public Guardian is assisting in placement.
[2019-10-01] MEDS: lithium carbonate 150mg capsule PO SCH (20:34)
[2019-10-01] MEDS: quetiapine 100mg tablet PO SCH (20:35)
[2019-10-01] MEDS: sennosides 8.6mg tablet PO SCH (20:35)
[2019-10-01] MEDS: docusate sod 100mg capsule PO SCH (20:36)
[2019-10-01] MEDS: clozapine 100mg tablet PO SCH (20:38)
--- NOTE | 2019-10-02 01:06 | NUR ---
Nursing Progress Note: Legal hold: LPS Client on involuntary status for GD Report received from nurse Adrián LUONG with use of SBAR: Why are they here: Pt. lost his placement at [facility] after being hospitalized for a suspected stroke. He was later diagnosed with a pneumonia, and after being transferred to a series of hospitals was admitted to [facility]. Pt is LPS conserved. Assessment What has happened this shift:Pt was in bed at change of shift. Pt was more talkative than previous encounters with him, but mostly negative. 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 pt isolated to his room all evening. SI/HI: Denies A/VH: Denies Sleep: see sleep hours ADL's: showered today Group attendance: No Were meds taken: Yes Any med S/E: none Mental Status Exam Appearance: Pt. is in clean scrubs Eye contact: fair Behavior: resting in bed Speech: Soft but clear Mood: Depressed. Affect: constricted Thought process: disorganized, delusional Thought Content: angry Cognition: A&Ox3 Insight: Poor Judgment: Poor Interventions PRN's used: None Therapeutic interventions: Maintained a safe and therapeutic environment, provided clear and simple instructions, reoriented to reality, monitored behaviors and need for intervention, encouraged independent performance of ADLs, and maintained Q 15 min safety checks. Restraints/seclusion/emergency medication: N/A Justification of Continued Inpatient Treatment: Pt is LPS and is awaiting placement to [place]. [place] Public Guardian is assisting in placement.
[2019-10-02 07:00] VITALS: BP 83/56
[2019-10-02] MEDS: lactobacillus rhamnosus 10,000 MMU CELLS/CAPSULE PO SCH ×2 (07:37→20:12)
[2019-10-02] MEDS: pyridoxine 50mg tablet PO SCH (07:37)
[2019-10-02] MEDS: tamsulosin 0.4mg capsule PO SCH (07:37)
[2019-10-02] MEDS: QUEtiapine 25mg tablet PO SCH ×2 (07:37→13:22)
[2019-10-02] MEDS: docusate sod 100mg capsule PO SCH ×2 (07:37→20:12)
[2019-10-02] MEDS: multivitamins, therapeutics tablet PO SCH (07:37)
[2019-10-02] MEDS: sennosides 8.6mg tablet PO SCH ×2 (07:37→20:12)
[2019-10-02] MEDS: levoTHYROXINE 112mcg tablet PO SCH (07:37)
[2019-10-02] MEDS: lamoTRIgine 25mg tablet PO SCH ×2 (07:38→20:12)
[2019-10-02] MEDS: lisinopril 5mg tablet PO SCH (08:00)
--- NOTE | 2019-10-02 18:23 | NUR ---
Nursing Progress Note: Legal hold: LPS Client on involuntary status for GD Report received from nurse Leah RN with use of SBAR: Why are they here: Pt. lost his placement at [place] after being hospitalized for a suspected stroke. He was later diagnosed with a pneumonia, and after being transferred to a series of hospitals was admitted to [facility]. Pt is LPS conserved. Assessment What has happened this shift: Patient sleeping this morning at med pass. Patient attempting to refuse his medications. It took several tries to get him to take his medications, but he did take them. Patient has been in a depression and has been laying in bed for most of the day, getting up for meals. Patient was encouraged to drink more water, BP was 83/56, Zestril held. BP was 83/56, Zestril held. SI/HI: Denies A/VH: Denies Sleep: Depressed and sleeps much of the day. ADL's: independent with some prompting. Group attendance: No. Were meds taken: Yes after much encouragement. Any med S/E: none Mental Status Exam Appearance: Elder male with graying hair and bliss wearing hospital scrubs. Eye contact: Intermittent Behavior: Sleeping., isolative Speech: Soft but clear Mood: Depressed. Affect: constricted Thought process: disorganized, delusional Thought Content: Tortured over delusions. Not wanting to take medications. Cognition: A&Ox3 Insight: Poor Judgment: Poor Interventions PRN's used: None Therapeutic interventions: Maintained a safe and therapeutic environment, provided clear and simple instructions, reoriented to reality, monitored behaviors and need for intervention, encouraged independent performance of ADLs, encouraged increase in p.o. Intake, and maintained Q 15 min safety checks. Restraints/seclusion/emergency medication: N/A Justification of Continued Inpatient Treatment: Pt is LPS and is awaiting placement to [place]. [place] Public Guardian is assisting in placement.
[2019-10-02] MEDS: clozapine 100mg tablet PO SCH (20:12)
[2019-10-02] MEDS: quetiapine 100mg tablet PO SCH (20:12)
[2019-10-02] MEDS: lithium carbonate 150mg capsule PO SCH (20:12)
[2019-10-02 20:34] VITALS: BP 158/77
--- NOTE | 2019-10-02 21:21 | NUR ---
Nursing Progress Note: Legal hold: [facility] conservatorship Client on conservatorship for gravely disabled Report received from Radha LUONG Why are they here: The patient was admitted on 08/26/19 from [facility] ER after he was seen there for a medical workup/treatment. He is on conservatorship through [facility] and was placed at [facility] but lost his bed placement after a medical illness. He was admitted to [facility] for psychiatric stabilization. Assessment What has happened this shift: The patient isolated to his bed the entire evening until most of the other patient's had gone to bed and then he came out and watched the music channel on TV. Staff had to assist him with the remote. He appears very disheveled and unbathed. Per the unit broker in charge he has been refusing to shower. He has greasy uncombed hair and his green scrubs were dirty. When approached for the evening assessment he was cooperative. His replies to the assessment questions were cryptic and delusional. He is poorly oriented and thought he was at [facility]. He was reminded he was at [facility]. When asked why he was here he replied, "Things I've done and I can't face the consequence" States he is here 2nd to a "mistake" He remarked that he does not have bowel movements because he doesn't eat however he is eating 100% of his meals and he has active bowel sounds. He reports that he feels depressed and at times has thoughts he doesn't want to live. When asked about his plan for self care if he were to be discharged he replied that he had no where to go and he did not know to care for himself. He stated that he does feel safe here in the hospital. 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" and added, "Now my liver is not working because it has too much iron in it" He was medication compliant but repeatedly stated that he feels he is taking too many medications and when the chair was moved in his room there was medication under it where he had obviously tossed it instead of taking it (seroquel 25 mg tablet) S/I, H/I: Denies DTO but does report passive SI A/VH: The patient denies Sleep: ADL's: Neglected hygiene and requires prompting Group attendance: Were meds taken: Took his HS medications but needs to be watched closely at med pass 2nd to meds found in his room Any med S/E none apparent and none reported Mental Status Exam Appearance: Disheveled and dirty. Wearing green hospital scrubs that are dirty Eye contact: fair Behavior: Isolative, cooperative, friendly when approached Speech: spontaneous, coherent Mood: Depressed Affect: Blunted Thought process: Delusional, disorganized Thought Content: quilt over something he believes he did. Cognition: Alert but confused to where he is at Insight: Poor Judgment: Poor Interventions PRN's used: Therapeutic interventions: The patient is on q 15 minute safety checks to maintain his safety on the unit. Assessed for severity of depressive symptoms and self harm risk. Educated the patient to his current medications. He was encouraged to come out of his room and join the group for the evening snack. Severity of thought disorder assessed and his ability to provide self care here in the hospital and if he were to be discharged. ADLs encouraged. Justification of Continued Inpatient Treatment: Per the psychiatric provider notes there are medication adjustments being considered to increase his Clozaril dose. Social work reports that [place] public guardian is looking for placement for him. The patient is not able to provide for food, long-term or clothing out of a structured environment 2nd to his lack of insight into his need for treatment
[2019-10-03 07:29] VITALS: BP 106/77
[2019-10-03] MEDS: levoTHYROXINE 112mcg tablet PO SCH (07:34)
[2019-10-03] MEDS: lamoTRIgine 25mg tablet PO SCH ×2 (07:35→20:45)
[2019-10-03] MEDS: pyridoxine 50mg tablet PO SCH (07:35)
[2019-10-03] MEDS: docusate sod 100mg capsule PO SCH ×2 (07:35→20:45)
[2019-10-03] MEDS: lactobacillus rhamnosus 10,000 MMU CELLS/CAPSULE PO SCH ×2 (07:35→20:45)
[2019-10-03] MEDS: QUEtiapine 25mg tablet PO SCH ×2 (07:35→12:01)
[2019-10-03] MEDS: lisinopril 5mg tablet PO SCH (07:36)
[2019-10-03] MEDS: tamsulosin 0.4mg capsule PO SCH (07:36)
[2019-10-03] MEDS: sennosides 8.6mg tablet PO SCH ×2 (07:36→20:46)
[2019-10-03] MEDS: multivitamins, therapeutics tablet PO SCH (07:36)
--- NOTE | 2019-10-03 09:08 | NUR ---
Reassessment: Pt PO 75-100% avg meals meeting needs. LBM 10/03. No nutrition diagnosis at this time. Will continue to monitor. Recommend: 1. continue regular diet 2. bowel care as needed 3. weight per rx Addendum: 10/03/19 at 908 by Wing Sadaf NELSON Amended: Links added. Addendum: 10/03/19 at [address] LESLIE Approves
--- NOTE | 2019-10-03 15:38 | NUR ---
Nursing Progress Note: [place] Legal hold: [facility] conservatorship Client on conservatorship for gravely disabled Report received from Leah LUONG Why are they here: The patient was admitted on 08/26/19 from [facility] ER after he was seen there for a medical workup/treatment. He is on conservatorship through [facility] and was placed at [facility] but lost his bed placement after a medical illness. He was admitted to [facility] for psychiatric stabilization. Assessment What has happened this shift: Client in bed to begin the shift. No somatic complaints to begin the shift. Client was amicable to meds and assessments this am. He will shower this shift as he has refused of late and is malodorous and unkept. Client was able to shower and he was monitored Q5 min to ensure that an adequate measure of cleanliness was obtained. Client has had no behavioral issues this shift as of this writing(1335 hours). This client is amicable with all aspects of his care but requires prompts at frequent intervals.Client has been up for meals and shower but has tended to isolate in his room today. S/I, H/I: Denies DTO but does report passive SI A/VH: The patient denies Sleep: 6 hours last shift. ADL's: Neglected hygiene and requires prompting Group attendance: no Were meds taken: yes Any med S/E none apparent and none reported Mental Status Exam Appearance: Showered today and fresh clothing in place. Eye contact: fair Behavior: Isolative, cooperative, friendly when approached Speech: spontaneous, coherent Mood: Depressed Affect: Blunted Thought process: Delusional, disorganized Thought Content: quilt over something he believes he did. Cognition: Alert but confused to where he is at Insight: Poor Judgment: Poor Interventions: PRN's used: Therapeutic interventions: The patient is on q 15 minute safety checks to maintain his safety on the unit. Assessed for severity of depressive symptoms and self harm risk. Educated the patient to his current medications. He was encouraged to come out of his room and join the group for the evening snack. Severity of thought disorder assessed and his ability to provide self care here in the hospital and if he were to be discharged. ADLs encouraged. Justification of Continued Inpatient Treatment: Per the psychiatric provider notes there are medication adjustments being considered to increase his Clozaril dose. Social work reports that [place] public guardian is looking for placement for him. The patient is not able to provide for food, retirement or clothing out of a structured environment 2nd to his lack of insight into his need for treatment.
[2019-10-03 20:25] VITALS: BP 98/57
[2019-10-03] MEDS: quetiapine 100mg tablet PO SCH (20:45)
[2019-10-03] MEDS: lithium carbonate 150mg capsule PO SCH (20:45)
[2019-10-03] MEDS: CLOZAPINE 25 MG oral disintegrating tablet PO SCH (20:45)
[2019-10-03] MEDS: clozapine 100mg tablet PO SCH (20:46)
--- NOTE | 2019-10-04 00:46 | NUR ---
Nursing Progress Note: [place] Legal hold: [facility] conservatorship Client on conservatorship for gravely disabled Report received from SANDY Blanchard Why are they here: The patient was admitted on 08/26/19 from [facility] ER after he was seen there for a medical workup/treatment. He is on conservatorship through [facility] and was placed at [facility] but lost his bed placement after a medical illness. He was admitted to [facility] for psychiatric stabilization. Assessment What has happened this shift: Pt was in his room during shift change. Still making delusional statements but his insight appears to have improved as patient responds to questions asked more appropriately. Pt sates that he was not doing good because his whole family is . He states that "this is the reason I can't sleep or eat, I can't keep anything down. My whole family is , my brother, my cousin." Pt was cooperative during 1:1 physical assessment and took all his PM meds without any issues. Pt remained isolative in his room for most of the evening and only came out at 0030 asking for a snack which was given. Pt then returned to his room. There were no other delusional statements made by pt. S/I, H/I: Denies A/VH: Denies Sleep:See sleep assessment ADL's: requires prompting Group attendance: none during casino shift manager Were meds taken: yes Any med S/E none apparent and none reported Mental Status Exam Appearance: appropriate, wearing green scrubs Eye contact: fair Behavior: Isolative, cooperative, friendly when approached Speech: spontaneous, coherent Mood: Depressed, paranoid Affect: Blunted Thought process: Delusional, disorganized Thought Content: his whole family being Cognition: Alert and oriented X3 Insight: Poor Judgment: Poor Interventions: PRN's used: Therapeutic interventions: The patient is on q 15 minute safety checks to maintain his safety on the unit. Assessed for severity of depressive symptoms and self harm risk. Educated the patient to his current medications. He was encouraged to come out of his room and join the group for the evening snack. Severity of thought disorder assessed and his ability to provide self care here in the hospital and if he were to be discharged. ADLs encouraged. Justification of Continued Inpatient Treatment: Per the psychiatric provider notes there are medication adjustments being considered to increase his Clozaril dose. Social work reports that [place] public guardian is looking for placement for him. The patient is not able to provide for food, snf or clothing out of a structured environment 2nd to his lack of insight into his need for treatment.
[2019-10-04 07:30] VITALS: BP 91/52
[2019-10-04] MEDS: lisinopril 5mg tablet PO SCH (08:00)
[2019-10-04] MEDS: levoTHYROXINE 112mcg tablet PO SCH (08:39)
[2019-10-04] MEDS: docusate sod 100mg capsule PO SCH ×2 (08:39→20:48)
[2019-10-04] MEDS: QUEtiapine 25mg tablet PO SCH (08:39)
[2019-10-04] MEDS: lamoTRIgine 25mg tablet PO SCH ×2 (08:40→20:48)
[2019-10-04] MEDS: lactobacillus rhamnosus 10,000 MMU CELLS/CAPSULE PO SCH ×2 (08:40→20:49)
--- NOTE | 2019-10-04 08:40 | NUR ---
DCP-Placement Presenting Issues: Pt's conserved by [facility], awaiting placement. Interventions: CM-Placement SS had t/c w/[facility], left vm for clinician to rt t/c with placement updates for pt. Plan: will continue to engage [facility] in dcp activities to facilitate pt's placement. Sarina Cerda MARKETING DEVELOPMENT MANAGER Addendum: 10/04/19 at 0843 by Sarina Cerda SS Amended: Links added.
[2019-10-04] MEDS: multivitamins, therapeutics tablet PO SCH (08:41)
[2019-10-04] MEDS: sennosides 8.6mg tablet PO SCH ×2 (08:41→20:48)
[2019-10-04] MEDS: pyridoxine 50mg tablet PO SCH (08:41)
[2019-10-04] MEDS: tamsulosin 0.4mg capsule PO SCH (08:42)
--- NOTE | 2019-10-04 11:28 | NUR ---
PLACEMENT Spoke to Tong Agarwal [facility] (ph# [phone]) who is requesting 2 psychiatrists to complete a declaration to continue Ct's conservatorship. He is going to fax the forms to television writer. He reported Ct's packet is currently at [facility] along with some other places which Stefano did not know the name of. VERONIQUE Finney
--- NOTE | 2019-10-04 17:15 | NUR ---
Nursing Progress Note: Legal hold: [facility] conservatorship Client on conservatorship for gravely disabled Report received from SANDY Pryor Why are they here: The patient was admitted on 08/26/19 from [facility] ER after he was seen there for a medical workup/treatment. He is on conservatorship through [facility] and was placed at [facility] but lost his bed placement after a medical illness. He was admitted to [facility] for psychiatric stabilization. Assessment What has happened this shift: Pt. asleep at start of shift. Pt. did not initially wake up for breakfast. RN woke pt. up and pt. ate breakfast and took medications. Pt. ate all meals in the community room. Pt. was in his room for majority of the day, however, pt. did come out to play bingo besides eating his meals. Pt. found in bed in the evening without his clothes. Pt. states, I just cant, I just cant put my clothes on I murdered my family I cant go out there. S/I, H/I: Denies A/VH: Denies but appears to be responding to internal stimuli. Sleep: Pt. was in bed most of shift but did not appear to sleep. ADL's: requires prompting Group attendance[facility] [place] Were meds taken: yes Any med S/E none apparent and none reported Mental Status Exam Appearance: Pt. needs prompting to put his clothes on. Pt. disheveled, unshaven. Eye contact: fair Behavior: Isolative, cooperative, friendly when approached Speech: spontaneous, coherent Mood: Depressed, paranoid Affect: Constricted. Thought process: Delusional, disorganized Thought Content: Thinks he murdered his family. Cognition: Alert and oriented X3 Insight: Poor Judgment: Poor Interventions: PRN's used: None Therapeutic interventions: The patient is on q 15 minute safety checks to maintain his safety on the unit. Assessed for severity of depressive symptoms and self-harm risk. Educated the patient to his current medications. Severity of thought disorder assessed and his ability to provide self-care here in the hospital and if he were to be discharged. ADLs encouraged. Justification of Continued Inpatient Treatment: Provider is adjusting medications. Social work reports that [facility] guardian is looking for placement for him. The patient is not able to provide for food, [place] [facility] or clothing out of a structured environment 2nd to his lack of insight into his need for treatment.
[2019-10-04 20:00] VITALS: BP 112/69
[2019-10-04] MEDS: CLOZAPINE 25 MG oral disintegrating tablet PO SCH (20:48)
[2019-10-04] MEDS: clozapine 100mg tablet PO SCH (20:49)
[2019-10-04] MEDS: quetiapine 100mg tablet PO SCH (20:49)
[2019-10-04] MEDS: lithium carbonate 150mg capsule PO SCH (20:49)
--- NOTE | 2019-10-05 00:07 | NUR ---
Nursing Progress Note: Ridge Legal hold: [facility] conservatorship Client on conservatorship for gravely disabled Report received from SANDY Blanchard Why are they here: The patient was admitted on 08/26/19 from [facility] ER after he was seen there for a medical workup/treatment. He is on conservatorship through [facility] and was placed at [facility] but lost his bed placement after a medical illness. He was admitted to [facility] for psychiatric stabilization. Assessment What has happened this shift: Pt was in his room resting in bed but awake during shift change. Pt was dressed in his green scrubs and stated that he had an "alright" day. Pt cooperative during 1:1 physical assessment and took all his PM meds without any issues. Pt did not make any delusional statements and denies A/H and V/H. Pt requested a snack and a peanut butter and jelly sandwich was provided. Pt came out of room during the night dressed in his green scrubs. He approached the nurses one of these times and stated "I've got a good idea." He went on talking about breakfast and how coffee should be provided at 0700 for the clients. pt went into the TV room area and had a snack. S/I, H/I: Denies A/VH: Denies Sleep:See sleep assessment ADL's: requires prompting Group attendance: none during overnight cashier Were meds taken: yes Any med S/E none apparent and none reported Mental Status Exam Appearance: appropriate, wearing green scrubs Eye contact: fair Behavior: Isolative, cooperative, friendly when approached Speech: spontaneous, normal rate and rhythm Mood: Depressed, paranoid Affect: Blunted Thought process: Delusional, disorganized Thought Content: having a great idea about breakfast Cognition: Alert and oriented X3 Insight: Poor Judgment: Poor Interventions: PRN's used: Therapeutic interventions: The patient is on q 15 minute safety checks to maintain his safety on the unit. Assessed for severity of depressive symptoms and self harm risk. Educated the patient to his current medications. He was encouraged to come out of his room and join the group for the evening snack. Severity of thought disorder assessed and his ability to provide self care here in the hospital and if he were to be discharged. ADLs encouraged. Justification of Continued Inpatient Treatment: Per the psychiatric provider notes there are medication adjustments being considered to increase his Clozaril dose. Social work reports that [place] public guardian is looking for placement for him. The patient is not able to provide for food, correction or clothing out of a structured environment 2nd to his lack of insight into his need for treatment.
[2019-10-05 07:33] VITALS: BP 133/88
[2019-10-05] MEDS: pyridoxine 50mg tablet PO SCH (07:38)
[2019-10-05] MEDS: multivitamins, therapeutics tablet PO SCH (07:38)
[2019-10-05] MEDS: lisinopril 5mg tablet PO SCH (07:38)
[2019-10-05] MEDS: lactobacillus rhamnosus 10,000 MMU CELLS/CAPSULE PO SCH ×2 (07:39→21:11)
[2019-10-05] MEDS: levoTHYROXINE 112mcg tablet PO SCH (07:39)
[2019-10-05] MEDS: tamsulosin 0.4mg capsule PO SCH (07:41)
[2019-10-05] MEDS: lamoTRIgine 25mg tablet PO SCH ×2 (07:41→21:12)
[2019-10-05] MEDS: sennosides 8.6mg tablet PO SCH ×2 (07:41→21:11)
[2019-10-05] MEDS: docusate sod 100mg capsule PO SCH ×2 (07:45→21:12)
--- NOTE | 2019-10-05 17:51 | NUR ---
Legal hold: [facility] conservatorship Client on conservatorship for gravely disabled Report received from SANDY Pryor Why are they here: The patient was admitted on 08/26/19 from [facility] ER after he was seen there for a medical workup/treatment. He is on conservatorship through [facility] and was placed at [facility] but lost his bed placement after a medical illness. He was admitted to [facility] for psychiatric stabilization. Assessment What has happened this shift: Pt. awake at beginning of shift. Pt. took shower this AM on his own initiative. Pt. awake for medications and breakfast. Pt. took all meds and ate all meals in community room. Pt. refused physical assessment. Pt. denies SI/HI, A/V hallucinations. Pt. has fixed delusion that he is putting his family and friends in danger. Pt. isolates and does not come to groups. Pt. states, I just cant come out. I have to stay in this bed I need to take my clothes off I need to be naked RN attempted to ground pt. in reality with some success, reinforcing importance of wearing clothes. RN asked pt. if he would come out of his room for hour and pt. agreed. S/I, H/I: Denies A/VH: Denies Sleep: Pt. napped x2 on day shift. ADL's: Pt. showered today. RN encouraged pt. to trim bliss but pt. refused. Group attendance: No Were meds taken: Yes Any med S/E none apparent and none reported Mental Status Exam Appearance: disheveled, wearing green scrubs Eye contact: good Behavior: Isolative, resistive to care, guarded Speech: WNL Mood: Depressed, paranoid, anxious Affect: Constricted Thought process: Delusional, disorganized Thought Content: Delusions about going to retirement for 4 years Cognition: Alert and oriented X3 Insight: Poor Judgment: Poor Interventions: None PRN's used: Therapeutic interventions: The patient is on q 15 minute safety checks to maintain his safety on the unit. Assessed for severity of depressive symptoms and self harm risk. Educated the patient to his current medications. He was encouraged to come out of his room and join the group. Severity of thought disorder assessed and his ability to provide self care here in the hospital and if he were to be discharged. ADLs encouraged. Justification of Continued Inpatient Treatment: Per the psychiatric provider notes there are medication adjustments being considered to increase his Clozaril dose. Social work reports that [facility] public guardian is looking for placement for him. The patient is not able to provide for food, skilled nursing or clothing out of a structured environment 2nd to his lack of insight into his need for treatment.
[2019-10-05 20:00] VITALS: BP 100/83
[2019-10-05] MEDS: quetiapine 100mg tablet PO SCH (21:11)
[2019-10-05] MEDS: lithium carbonate 150mg capsule PO SCH (21:12)
[2019-10-05] MEDS: clozapine 100mg tablet PO SCH (21:12)
--- NOTE | 2019-10-06 00:56 | NUR ---
Nursing Progress Note: Ridge Legal hold: [facility] conservatorship Client on conservatorship for gravely disabled Report received from SANDY Blanchard Why are they here: The patient was admitted on 08/26/19 from [facility] ER after he was seen there for a medical workup/treatment. He is on conservatorship through [facility] and was placed at [facility] but lost his bed placement after a medical illness. He was admitted to [facility] for psychiatric stabilization. Assessment What has happened this shift: Pt was in bed wearing his green scrubs during shift change. He was cooperative during 1:1 physical assessment and took all his PM meds but did question why there were so many of them. Pt stated that he was not doing well because he can't sleep. This RN suggested an Ativan but stated that won't work. He asked for an Ambien and was told that this was not available for him. Pt sated that he also feels depressed and frustrated. "I'm alone, I don't have anyone, my family wont talk to me. I don't even know how I got to this point." Pt started to get teary eye and this RN provided some therapeutic listening. Pt stated that he doesn't like going to groups because being around too many people makes him feel uncomfortable. "I don't like being in the spotlight." Pt did come out of his room during the night a couple of times but was encouraged to go back to sleep. S/I, H/I: Denies A/VH: Denies Sleep:See sleep assessment ADL's: requires prompting Group attendance: none during manager cancer Were meds taken: yes Any med S/E none apparent and none reported Mental Status Exam Appearance: appropriate, wearing green scrubs Eye contact: fair Behavior: Isolative, cooperative, resistive to care Speech: spontaneous, normal rate and rhythm Mood: Depressed Affect: Blunted Thought process: disorganized Thought Content: not being able to sleep and having no appetite Cognition: Alert and oriented X3 Insight: Poor Judgment: Poor Interventions: PRN's used: Therapeutic interventions: The patient is on q 15 minute safety checks to maintain his safety on the unit. Assessed for severity of depressive symptoms and self harm risk. Educated the patient to his current medications. He was encouraged to come out of his room and join the group for the evening snack. Severity of thought disorder assessed and his ability to provide self care here in the hospital and if he were to be discharged. ADLs encouraged. Justification of Continued Inpatient Treatment: Per the psychiatric provider notes there are medication adjustments being considered to increase his Clozaril dose. Social work reports that [facility] public guardian is looking for placement for him. The patient is not able to provide for food, halfway or clothing out of a structured environment 2nd to his lack of insight into his need for treatment.
[2019-10-06 07:46] VITALS: BP 114/73
[2019-10-06] MEDS: sennosides 8.6mg tablet PO SCH ×2 (08:34→21:14)
[2019-10-06] MEDS: docusate sod 100mg capsule PO SCH ×2 (08:34→21:15)
[2019-10-06] MEDS: lactobacillus rhamnosus 10,000 MMU CELLS/CAPSULE PO SCH ×2 (08:34→21:15)
[2019-10-06] MEDS: tamsulosin 0.4mg capsule PO SCH (08:34)
[2019-10-06] MEDS: levoTHYROXINE 112mcg tablet PO SCH (08:34)
[2019-10-06] MEDS: lisinopril 5mg tablet PO SCH (08:34)
[2019-10-06] MEDS: pyridoxine 50mg tablet PO SCH (08:34)
[2019-10-06] MEDS: multivitamins, therapeutics tablet PO SCH (08:34)
[2019-10-06] MEDS: lamoTRIgine 25mg tablet PO SCH ×2 (08:37→21:14)
--- NOTE | 2019-10-06 15:43 | NUR ---
Nursing Progress Note:Ridge Legal hold: LPS Client on voluntary/involuntary status for GD Report received from nurse with use of MELODY Galicia. Why are they here: Patient was admitted following a medical condition at [facility]. He was conserved 01/08 and was [facility] in [place], [place]. Patient thought processes are disorganzed. Patient has diagnosis of schizophrenia and bipolar. He initially presented as hypomanic, instrusive with others and required frequent redirection. Assessment What has happened this shift: Patient was sleeping at shift change. He came to community room for breakfast and was pleasant with staff and others. He returned to his room following breakfast. During 1:1 assessment patient states I am in big trouble, I missed my court date. When asked why he had a court date, he responded you know, I hurt all those people, I killed them. I explained that we had notified the court that he was here and that they would reschedule which he accepted. He then explained that he was experiencing visual hallucinations. Stating I see someone and we are holding hands and then they are just gone. Indiraes audio hallucinations. Denies serious depression. Attended group and showered. Has been observed out of room more than reported and was very excited to have the opportunity to go outside on the patio with others. Patient approached this database report writer and requested to talk. He began speaking again about killing someone. This time he stated that this database report writer was there and wittnessed the crime. Stated I killed them without every putting my hands on them, it is like sorcery. Everybody here knows what I did and they are shutting me out. my thoughts are racing, I am not manic and I am not depressed, but I cant eat, my liver is going to fail. S/I, H/I: Denies but states he has committed murder and has hurt people while on our unit A/VH: Visual as described above Sleep: 5.75 ADL's: independant with encouragement Group attendance: yes Were meds taken: yes Any med S/E None observed Mental Status Exam Appearance: showered hair combed, clean green scrubs Eye contact: Direct Behavior: Remorseful r/t delusions that he has murdered people Speech: Clear, soft, normal rate, rhythm Mood: Despairing Affect: Congruent with mood Thought process: Donnelly Thought Content: Court, being punished for murdering people while he has been here Cognition: A & O 2 (Person and Place) Insight: Poor Judgment: Poor Interventions PRN's used: No Therapeutic interventions: 1:1 therapeutic Assessment including physical and psychosocial, any s/s of psychosis, delusions A/V hallucinations and SI. Provided education on current medications. Encouraged to participate in groups and other activities. Encouraged to perform own ADLs . Q 15 minute safety checks to maintain patient safety. Restraints/seclusion/emergency medication: N/A Justification of Continued Inpatient Treatment: Continues to have GD, unable to obtain food, clothing or jail on his own. Currently is LPS conserved. Continued observation and adjustment of medications to provide mood stabilization and reduce occurence of A/V Hallucinations. Continues to experience disorganized thoughts r/t hallucinations and delusions.
[2019-10-06 19:29] VITALS: BP 126/83
[2019-10-06] MEDS: quetiapine 100mg tablet PO SCH (21:14)
[2019-10-06] MEDS: lithium carbonate 150mg capsule PO SCH (21:15)
[2019-10-06] MEDS: clozapine 100mg tablet PO SCH (21:15)
--- NOTE | 2019-10-07 01:08 | NUR ---
Discharge note: Pt was transferred to ICU. At around 0030 Pt came up to the nurse's station and appeared to be chocking on something. Code blue was called and pt successfully stabilized. Report given to BG, AREA OPERATIONS MANAGER
--- NOTE | 2019-10-07 01:22 | NUR ---
Pt approached nursing station and appeared to be choking, a code blue was called. Code team arrived and pt was stabilized and transported to ICU.
== END 2019-10-07 00:49 | disposition short-term general hospital (02) | DRG 885 ==
LOC: ADULT MH 11:45
PROVIDERS: ADMIT Psychiatry & Neurology Psychiatry; ATTEND Psychiatry & Neurology Psychiatry
DX: F25.0 Schizoaffective disorder, bipolar type (principal); F31.4 Bipolar disorder, current episode depressed, severe, without psychotic features; E78.5 Hyperlipidemia, unspecified; E78.00 Pure hypercholesterolemia, unspecified; E03.9 Hypothyroidism, unspecified; F12.90 Cannabis use, unspecified, uncomplicated; F17.200 Nicotine dependence, unspecified, uncomplicated; F51.3 Sleepwalking [somnambulism]; I10 Essential (primary) hypertension; D72.829 Elevated white blood cell count, unspecified; R29.810 Facial weakness; Z59.0 Homelessness; Z79.899 Other long term (current) drug therapy
CPT/HCPCS: 36415; 80061; 80178; 81001; 83036; 83605; 84145; 84443; 85025; 87040; 87081; 90654; 99285; Z7610

== ENCOUNTER 2019-10-07 00:54 | Inpatient (IN) | payer MEDICARE, MEDICAID ==
[~2019-10-07] VITALS: Ht 177.8 cm; Wt 72.5 kg
[2019-10-07] VITALS (22 sets, daily range): BP systolic 84–111; BP diastolic 49–66
[~2019-10-07 00:54] MED LIST: CEFD300C3 PO; CLON-527 PO; CLOZ100T31 PO; CLOZ200T PO; DIVA-74 PO; FLO0.4C PO; LAMO100T2 PO; LEVO112T5 PO; LISI-643 PO; MULT1CAP44 PO; OLAN20TA34 PO; PYRI50TA13 PO; QUET-1 PO; QUET300T19 PO; SERT100T10 PO; TRAZ300T2 PO
[2019-10-07] MEDS ORDERED: midazolam 100mg in NS 100ml 100 ML IV PRN (00:56)
[2019-10-07] MEDS ORDERED: FENTANYL-0.9 % NACL/PF 100 ML IV PRN (00:56)
[2019-10-07] MEDS ORDERED: albuterol 2.5 MG/3 ML nebule NEB PRN (01:00)
[2019-10-07] MEDS ORDERED: midazolam 2 mg/2 ml injection ONE ×2 (01:04→01:10)
[2019-10-07] MEDS ORDERED: magnesium 4gm in 100ml NS 100 ML IV PRN (01:10)
[2019-10-07] MEDS ORDERED: ondansetron/PF 4mg/2ml inj IV PRN (01:10)
[2019-10-07] MEDS ORDERED: acetaminophen 650mg rectal suppository RC PRN (01:10)
[2019-10-07] MEDS ORDERED: potassium CL 10mEq/100ml bag 100 ML IV PRN (01:10)
[2019-10-07] MEDS ORDERED: magnesium 2GM in 50ml NS 50 ML IV PRN (01:10)
[2019-10-07] MEDS ORDERED: acetaminophen 325mg tablet PO PRN ×2 (01:20)
[2019-10-07] MEDS ORDERED: magnesium hydroxide 30ml (MOM) UD suspension PO PRN (01:20)
[2019-10-07] MEDS ORDERED: OLANZapine **IM** 10 mg inj. IM PRN (01:25)
[2019-10-07 01:45] LABS: ABG BASE EXCESS -6.6 mmol/L (-2.0-3.0); ABG OXYGEN SATURATION 96.1 % (95-98); ABG PCO2 (T) 32.6 mmHg (35.0-45.0); ABG PH (T) 7.357 (7.350-7.450); ABG PO2 (T) 83.5 mmHg (83-108); ALLEN'S TEST Positive; FCOHb 0.3 % (0.5-1.5); FMetHb 0.1 % (0.3-1.12); FO2Hb 95.7 % (94-100); MINUTE VOLUME 6 L/min; PATIENT TEMPERATURE 36.3; PEEP 5 cm H2O; RESPIRATORY RATE 14 b/min; RESPIRATORY RATE (OBSERVED) 14 b/min; TIDAL VOLUME 450 mL; TOTAL HEMOGLOBIN 14.5 G/dl (14.0-17.9)
[2019-10-07 01:59] LABS: BASOPHILS % (AUTO) 0.2 % (0-1); EOSINOPHILS # (AUTO) 0.3 X10'3 (0-0.9); EOSINOPHILS % (AUTO) 2.3 % (0-6); HEMATOCRIT 41.7 % (42.0-52.0); HEMOGLOBIN 14.3 g/dl (14.0-17.9); LYMPHOCYTES # (AUTO) 2.2 X10'3 (1.1-4.8); LYMPHOCYTES % (AUTO) 15.6 % (21-51); MEAN CORPUSCULAR HEMOGLOBIN 31.7 PG (27.0-31.0); MEAN CORPUSCULAR HGB CONC 34.2 g/dL (33.0-36.5); MEAN CORPUSCULAR VOLUME 92.8 FL (78-98); MONOCYTES # (AUTO) 0.9 X10'3 (0-0.9); MONOCYTES % (AUTO) 6.6 % (2-12); NEUTROPHILS # (AUTO) 10.7 X10'3 (1.8-7.7); NEUTROPHILS % (AUTO) 75.3 % (42-75); PLATELET COUNT 265 X10'3 (140-440); RED CELL DISTRIBUTION WIDTH 13.3 % (11.5-14.5); WHITE BLOOD COUNT 14.2 X10'3 (4.5-11.0)
[2019-10-07 02:22] LABS: ALANINE AMINOTRANSFERASE 46 U/L (12-78); ALBUMIN 3.3 G/DL (3.4-5.0); ALBUMIN/GLOBULIN RATIO 1.1 (1.1-1.5); ALKALINE PHOSPHATASE 118 IU/L (46-116); ANION GAP 7 (8-16); ASPARTATE AMINO TRANSFERASE 34 U/L (10-37); BILIRUBIN,TOTAL 0.2 MG/DL (0.1-1.0); BLOOD UREA NITROGEN 16 MG/DL (7-18); BUN/CREATININE RATIO 15.1 (5.4-32.0); CALCIUM 8.3 MG/DL (8.5-10.1); CHLORIDE 102 MMOL/L (99-107); CREATININE 1.06 MG/DL (0.60-1.10); GLUCOSE 196 MG/DL (70-104); SODIUM 136 MMOL/L (135-145); TOTAL CARBON DIOXIDE 27.2 MMOL/L (24-32); TOTAL PROTEIN 6.4 G/DL (6.4-8.2); eGFR 71 ML/MIN
[2019-10-07 02:23] LABS: PARTIAL THROMBOPLASTIN TIME 26 SECONDS (22-32)
[2019-10-07 02:26] LABS: MAGNESIUM 1.5 MG/DL (1.5-2.4); TROPONIN I < 0.04 NG/ML (0.0-0.05)
[2019-10-07 02:27] LABS: POTASSIUM 3.4 MMOL/L (3.5-5.1)
[2019-10-07] MEDS: ipratropium/albuterol 3ml nebule NEB SCH ×6 (03:18→23:13)
--- NOTE | 2019-10-07 05:41 | NUR ---
0130 Received pt via gurney, pt is intubated, placed on monitor, pt is in a SR, no ectopy noted at this time, assessment complete, no skin breakdown noted, hydrophilic dressing applied to sacral area, versed drip started as pt is resisting ventilator. PIV started in the left ac 20 G first attempt pt tolerated well.
--- NOTE | 2019-10-07 06:05 | NUR ---
pt does wake up and kick his legs but not following commands
--- NOTE | 2019-10-07 06:30 | NUR ---
Patient in room ICU 2043. I have received report from CHERISE Ely and had the opportunity to ask questions and assume patient care.
[2019-10-07] MEDS: normal saline 1000ml 1,000 ML IV SCH ×2 (06:43→14:30)
--- NOTE | 2019-10-07 07:30 | NUR ---
[facility] Called Ct's Public Guardian, Kaveh (ph# [phone]) and Stefano Barrett (ph# [phone]) at [facility] to notify them that Ct is currently in the ICU and coded last night. VERONIQUE Finney
[2019-10-07] MEDS: lactobacillus rhamnosus 10,000 MMU CELLS/CAPSULE PO SCH ×2 (08:00→21:15)
[2019-10-07] MEDS ORDERED: lisinopril 10 MG tablet PO SCH (08:00)
[2019-10-07] MEDS: pantoprazole 40 MG vial IV SCH (08:00)
[2019-10-07] MEDS: MULTIVIT-MIN/FERROUS GLUCONATE 9 MG/15 ML LIQUID CORPAK SCH (08:00)
[2019-10-07] MEDS: levoTHYROXINE 112mcg tablet PO SCH (08:00)
[2019-10-07] MEDS: lisinopril 5mg tablet PO SCH (08:00)
[2019-10-07] MEDS: docusate sodium 100mg/10ml UD cup PO SCH ×2 (08:00→21:14)
[2019-10-07] MEDS: lamoTRIgine 25mg tablet PO SCH ×2 (08:01→21:14)
[2019-10-07] MEDS: pyridoxine 50mg tablet PO SCH (08:01)
[2019-10-07] MEDS: tamsulosin 0.4mg capsule PO SCH (08:01)
[2019-10-07] MEDS: sennosides 8.6mg tablet PO SCH ×2 (08:01→21:15)
[2019-10-07] MEDS: enoxaparin 40mg/0.4ml syringe SUBCUT SCH (08:02)
--- NOTE | 2019-10-07 11:25 | NUR ---
Initial: Pt intubated s/p choking on peanut butter sandwich in unit last night. CPR but pulse not lost per MD. MAP 63 w/ OG in place. Working on weaning and not yet ready for extubation at this time per RN. TF recs below IF prolonged intubation. Receiving colace and senna routinely w/ no BM yet on vent. Would benefit from SP BSS following extubation. Will continue to monitor. Rec: 1. IF OGTF; Vital AF at 75ml/hr goal; additional water flush per advertising agent Na 136 today 2. upon extubation; advance diet per MD/SP to regular 3. routine bowel care 4. wt per rx Addendum: 10/07/19 at [address] Amended: Links added.
--- NOTE | 2019-10-07 14:32 | NUR ---
PUBLIC GUARDIAN REQUESTED NOTES Kaveh, Public Guardian (ph# [phone]), requested Ct's ICU records. Faxed them to him at fax# [phone]. VERONIQUE Finney
--- NOTE | 2019-10-07 18:32 | NUR ---
Problems reprioritized. Patient report given, questions answered & plan of care reviewed with CHERISE Mcbride.
[2019-10-07] MEDS: methylPREDNISolone sod succ/PF 40mg inj. IV SCH (21:14)
[2019-10-07] MEDS: lithium carbonate 150mg capsule PO SCH (21:15)
[2019-10-07] MEDS: quetiapine 100mg tablet PO SCH (21:15)
[2019-10-07] MEDS: clozapine 100mg tablet PO SCH (21:16)
[2019-10-07] MEDS ORDERED: dextrose 50%-water 50ml dispensing syringe IV ONE (21:41)
[2019-10-08] VITALS (22 sets, daily range): BP systolic 98–141; BP diastolic 56–89
[2019-10-08] MEDS: ipratropium/albuterol 3ml nebule NEB SCH ×6 (03:03→23:00)
[2019-10-08 03:31] LABS: ABG BASE EXCESS -0.4 mmol/L (-2.0-3.0); ABG HCO3 23.8 mmol/L (22.0-26.0); ABG OXYGEN SATURATION 97.2 % (95-98); ABG PCO2 (T) 37.7 mmHg (35.0-45.0); ABG PH (T) 7.418 (7.350-7.450); ABG PO2 (T) 91.8 mmHg (83-108); ALLEN'S TEST Positive; FCOHb 0.2 % (0.5-1.5); FMetHb 0.1 % (0.3-1.12); FO2Hb 96.9 % (94-100); MINUTE VOLUME 6 L/min; PATIENT TEMPERATURE 37.2; PEEP 5 cm H2O; RESPIRATORY RATE (OBSERVED) 11 b/min; TOTAL HEMOGLOBIN 13.7 G/dl (14.0-17.9)
[2019-10-08] MEDS: normal saline 1000ml 1,000 ML IV SCH (04:44)
[2019-10-08 04:58] LABS: BASOPHILS % (AUTO) 0.1 % (0-1); EOSINOPHILS % (AUTO) 0.1 % (0-6); HEMATOCRIT 38.2 % (42.0-52.0); LYMPHOCYTES # (AUTO) 0.5 X10'3 (1.1-4.8); LYMPHOCYTES % (AUTO) 3.4 % (21-51); MEAN CORPUSCULAR HEMOGLOBIN 31.7 PG (27.0-31.0); MEAN CORPUSCULAR HGB CONC 34.1 g/dL (33.0-36.5); MEAN PLATELET VOLUME 7.1 FL (7.4-10.4); MONOCYTES # (AUTO) 0.4 X10'3 (0-0.9); MONOCYTES % (AUTO) 3.2 % (2-12); NEUTROPHILS # (AUTO) 13.1 X10'3 (1.8-7.7); NEUTROPHILS % (AUTO) 93.2 % (42-75); PLATELET COUNT 246 X10'3 (140-440); RED CELL DISTRIBUTION WIDTH 13.3 % (11.5-14.5)
[2019-10-08 05:03] LABS: PARTIAL THROMBOPLASTIN TIME 31 SECONDS (22-32)
[2019-10-08 05:08] LABS: ALANINE AMINOTRANSFERASE 35 U/L (12-78); ALBUMIN/GLOBULIN RATIO 0.9 (1.1-1.5); ALKALINE PHOSPHATASE 88 IU/L (46-116); ANION GAP 9 (8-16); ASPARTATE AMINO TRANSFERASE 20 U/L (10-37); BILIRUBIN,TOTAL 0.4 MG/DL (0.1-1.0); BLOOD UREA NITROGEN 12 MG/DL (7-18); CALCIUM 8.8 MG/DL (8.5-10.1); CHLORIDE 104 MMOL/L (99-107); GLUCOSE 139 MG/DL (70-104); MAGNESIUM 1.9 MG/DL (1.5-2.4); PHOSPHORUS 2.6 MG/DL (2.3-4.5); POTASSIUM 4.3 MMOL/L (3.5-5.1); SODIUM 137 MMOL/L (135-145); TOTAL CARBON DIOXIDE 24.2 MMOL/L (24-32); TOTAL PROTEIN 6.3 G/DL (6.4-8.2); eGFR 76 ML/MIN
--- NOTE | 2019-10-08 06:26 | NUR ---
Patient in room ICU 2043. I have received report from CHERISE Mcbride and had the opportunity to ask questions and assume patient care.
[2019-10-08] MEDS: MULTIVIT-MIN/FERROUS GLUCONATE 9 MG/15 ML LIQUID CORPAK SCH (07:59)
[2019-10-08] MEDS: pantoprazole 40 MG vial IV SCH (07:59)
[2019-10-08] MEDS: lamoTRIgine 25mg tablet PO SCH ×2 (07:59→21:32)
[2019-10-08] MEDS: pyridoxine 50mg tablet PO SCH (07:59)
[2019-10-08] MEDS: sennosides 8.6mg tablet PO SCH ×2 (07:59→21:41)
[2019-10-08] MEDS: tamsulosin 0.4mg capsule PO SCH (07:59)
[2019-10-08] MEDS: lactobacillus rhamnosus 10,000 MMU CELLS/CAPSULE PO SCH ×2 (07:59→21:31)
[2019-10-08] MEDS: levoTHYROXINE 112mcg tablet PO SCH (07:59)
[2019-10-08] MEDS: lisinopril 5mg tablet PO SCH (08:00)
[2019-10-08] MEDS: docusate sodium 100mg/10ml UD cup PO SCH ×2 (08:00→21:30)
[2019-10-08] MEDS: methylPREDNISolone sod succ/PF 40mg inj. IV SCH ×2 (08:00→20:00)
[2019-10-08] MEDS: enoxaparin 40mg/0.4ml syringe SUBCUT SCH (08:45)
[2019-10-08] MEDS ORDERED: racepinephrine 11.25mg/0.5ml nebule IH PRN (09:40)
--- NOTE | 2019-10-08 11:25 | NUR ---
Pt extubated, voice quality good, respirations are even and unlabored. Pt stated, "you are trying to kill me."
--- NOTE | 2019-10-08 18:42 | NUR ---
Problems reprioritized. Patient report given, questions answered & plan of care reviewed.
[2019-10-08] MEDS: lithium carbonate 150mg capsule PO SCH (21:31)
[2019-10-08] MEDS: quetiapine 100mg tablet PO SCH (21:32)
[2019-10-08] MEDS: clozapine 100mg tablet PO SCH (21:41)
[2019-10-08] MEDS ORDERED: methylPREDNISolone sod succ/PF 40mg inj. IV ONE (21:50)
[2019-10-08] MEDS ORDERED: predniSONE 5mg tablet PO ONE (22:15)
[2019-10-09] VITALS (15 sets, daily range): BP systolic 104–137; BP diastolic 69–90
[2019-10-09] MEDS ORDERED: lactulose 20gm/30ml cup PO PRN (01:10)
[2019-10-09] MEDS: ipratropium/albuterol 3ml nebule NEB SCH ×4 (03:00→15:00)
--- NOTE | 2019-10-09 06:30 | NUR ---
Patient in room ICU 2043. I have received report from Preeti LUONG and had the opportunity to ask questions and assume patient care.
[2019-10-09 07:28] LABS: BASOPHILS % (AUTO) 0.2 % (0-1); EOSINOPHILS # (AUTO) 0.1 X10'3 (0-0.9); EOSINOPHILS % (AUTO) 0.5 % (0-6); HEMATOCRIT 39.2 % (42.0-52.0); HEMOGLOBIN 13.6 g/dl (14.0-17.9); LYMPHOCYTES % (AUTO) 8.3 % (21-51); MEAN CORPUSCULAR HGB CONC 34.7 g/dL (33.0-36.5); MEAN CORPUSCULAR VOLUME 92.1 FL (78-98); MEAN PLATELET VOLUME 7.1 FL (7.4-10.4); MONOCYTES # (AUTO) 0.9 X10'3 (0-0.9); MONOCYTES % (AUTO) 7.8 % (2-12); NEUTROPHILS % (AUTO) 83.2 % (42-75); PLATELET COUNT 207 X10'3 (140-440); RED BLOOD COUNT 4.25 X10'6 (4.70-6.10); RED CELL DISTRIBUTION WIDTH 13.6 % (11.5-14.5)
[2019-10-09 07:38] LABS: PARTIAL THROMBOPLASTIN TIME 26 SECONDS (22-32)
[2019-10-09 07:42] LABS: ALANINE AMINOTRANSFERASE 34 U/L (12-78); ALBUMIN 3.2 G/DL (3.4-5.0); ALBUMIN/GLOBULIN RATIO 0.9 (1.1-1.5); ALKALINE PHOSPHATASE 86 IU/L (46-116); ANION GAP 5 (8-16); ASPARTATE AMINO TRANSFERASE 21 U/L (10-37); BILIRUBIN,TOTAL 0.4 MG/DL (0.1-1.0); BLOOD UREA NITROGEN 10 MG/DL (7-18); BUN/CREATININE RATIO 13.3 (5.4-32.0); CALCIUM 9.1 MG/DL (8.5-10.1); CHLORIDE 105 MMOL/L (99-107); CREATININE 0.75 MG/DL (0.60-1.10); GLUCOSE 105 MG/DL (70-104); MAGNESIUM 1.8 MG/DL (1.5-2.4); PHOSPHORUS 2.4 MG/DL (2.3-4.5); POTASSIUM 3.9 MMOL/L (3.5-5.1); SODIUM 139 MMOL/L (135-145); TOTAL CARBON DIOXIDE 28.8 MMOL/L (24-32); TOTAL PROTEIN 6.6 G/DL (6.4-8.2); eGFR > 90 ML/MIN
[2019-10-09] MEDS: docusate sodium 100mg/10ml UD cup PO SCH (07:57)
[2019-10-09] MEDS: lactobacillus rhamnosus 10,000 MMU CELLS/CAPSULE PO SCH (07:58)
[2019-10-09] MEDS: lisinopril 5mg tablet PO SCH (07:59)
[2019-10-09] MEDS: pyridoxine 50mg tablet PO SCH (07:59)
[2019-10-09] MEDS: sennosides 8.6mg tablet PO SCH (07:59)
[2019-10-09] MEDS: levoTHYROXINE 112mcg tablet PO SCH (07:59)
[2019-10-09] MEDS: tamsulosin 0.4mg capsule PO SCH (07:59)
[2019-10-09] MEDS: MULTIVIT-MIN/FERROUS GLUCONATE 9 MG/15 ML LIQUID CORPAK SCH (08:00)
[2019-10-09] MEDS: enoxaparin 40mg/0.4ml syringe SUBCUT SCH (08:00)
[2019-10-09] MEDS: pantoprazole 40 MG vial IV SCH (08:00)
[2019-10-09] MEDS: lamoTRIgine 25mg tablet PO SCH (08:02)
--- NOTE | 2019-10-09 15:12 | NUR ---
Patient refused SVN tx @ this time. No Shortness of breath noted. GIVES PT BRONCHOSPASM Addendum: 10/09/19 at 1513 by Rose Mary Jain RT Amended: Links added.
--- NOTE | 2019-10-09 16:15 | NUR ---
Pt DC'd and transfered to behavioral health unit at [facility]. Called report to behavioral health unit. Pt stable at transfer, vitals WNL, Pt medically cleared by Dr. Dallas for transfer. Tele-pads removed, pt had no PIV. Pt transfered via wheelchair by mental health personal to behavioral health unit on third floor.
[2019-10-09] MEDS ORDERED: LAMO25TA4 PO (20:23)
[2019-10-09] MEDS ORDERED: SENN-162 PO (20:23)
[2019-10-09] MEDS ORDERED: LITH150C8 PO (20:23)
[2019-10-09] MEDS ORDERED: DOCU-148 PO (20:23)
[2019-10-09] MEDS ORDERED: LISI2.5T89 PO (20:23)
[2019-10-09] MEDS ORDERED: CLOZ100T31 PO (20:23)
== END 2019-10-09 16:19 | DRG 208 ==
LOC: PACU 00:54 → ICU 2S 00:55
PROC: 5A1945Z Respiratory Ventilation, 24-96 Consecutive Hours (ICD-10-PCS; principal; 2019-10-07)
PROC: 0BH17EZ Insertion of Endotracheal Airway into Trachea, Via Natural or Artificial Opening (ICD-10-PCS; 2019-10-07)
PROC: 0BC17ZZ Extirpation of Matter from Trachea, Via Natural or Artificial Opening (ICD-10-PCS; 2019-10-07)
DX: J96.00 Acute respiratory failure, unspecified whether with hypoxia or hypercapnia (principal); I46.9 Cardiac arrest, cause unspecified; J69.0 Pneumonitis due to inhalation of food and vomit; F25.9 Schizoaffective disorder, unspecified; T18.128A Food in esophagus causing other injury, initial encounter; X58.XXXA Exposure to other specified factors, initial encounter; I10 Essential (primary) hypertension; E03.9 Hypothyroidism, unspecified; E78.5 Hyperlipidemia, unspecified; F29 Unspecified psychosis not due to a substance or known physiological condition; F17.210 Nicotine dependence, cigarettes, uncomplicated; F31.9 Bipolar disorder, unspecified; Z79.899 Other long term (current) drug therapy; Z88.8 Allergy status to other drugs, medicaments and biological substances; Y93.89 Activity, other specified; Y92.89 Other specified places as the place of occurrence of the external cause; Y99.8 Other external cause status
CPT/HCPCS: 36415; 36600; 71045; 80053; 82803; 82948; 83605; 83735; 83880; 84100; 84145; 84484; 85018; 85025; 85610; 85730; 87040; 87070; 92508; 92616; 93005; 93306; 94002; 94003; 94640; 94760; C9113; G0378; J1650; J2250; J2920; J3010; J3480; J3490; J7512

== ENCOUNTER 2019-10-09 16:24 | Inpatient (IN) | payer MEDICARE, MEDICAID ==
[~2019-10-09] VITALS: Ht 177.8 cm; Wt 64.3 kg
[2019-10-09] MEDS ORDERED: acetaminophen 325mg tablet PO PRN ×2 (17:55)
[2019-10-09] MEDS ORDERED: magnesium hydroxide 30ml (MOM) UD suspension PO PRN (17:55)
[2019-10-09] MEDS ORDERED: loperamide 2mg capsule PO PRN (17:55)
[2019-10-09] MEDS ORDERED: mag hydrox/Alum hydrox/simeth 30ml oral suspension PO PRN (17:55)
[2019-10-09] MEDS ORDERED: LORazepam 1 MG tablet PO PRN (17:55)
[2019-10-09 20:00] VITALS: BP 115/77
[2019-10-09] MEDS ORDERED: LAMO25TA4 PO (20:23)
[2019-10-09] MEDS ORDERED: CLOZ100T31 PO (20:23)
[2019-10-09] MEDS ORDERED: LITH150C8 PO (20:23)
[2019-10-09] MEDS ORDERED: DOCU-148 PO (20:23)
[2019-10-09] MEDS ORDERED: SENN-162 PO (20:23)
[2019-10-09] MEDS ORDERED: LISI2.5T89 PO (20:23)
[2019-10-09] MEDS ORDERED: quetiapine 100mg tablet PO SCH (21:00)
[2019-10-09] MEDS ORDERED: CLOZAPINE 100 MG TAB.RAPDIS PO SCH (21:28)
[2019-10-09] MEDS ORDERED: lithium carbonate 150mg capsule PO SCH (21:30)
[2019-10-09] MEDS: lamoTRIgine 25mg tablet PO SCH (21:48)
--- NOTE | 2019-10-10 01:20 | NUR ---
Nursing Progress Note: Legal hold: LPS Report received from CHERISE Amezcua with use of SBAR Why are they here: Pt decompensated and became sick with pneumonia, for which he was hospitalized. During this time, he lost his placement at his alf. Pt admitted to [facility] for stabilization and placement assistance. More recently, pt transferred in-house to ICU for aspiration/choking on peanut butter; readmitted on 10/09, continues to await placement. Hx Bipolar, Coded this admission as Schizoaffective Assessment: What happened this shift: Pt isolated to room for the shift. Pt has a hacking, intermittent cough and lungs sound wheezy throughout. Pt states his ribs hurt from "Heimlich maneuver. They had to do all kinds of things because the peanut butter." Declined pain medication. "No, it won't help". Pt had a moment of agitation r/t coughing fit exacerbating rib pain and delusions, stating "I'm not saying it was coincidence but I did bad things and now my lungs are in a bad way! You don't have to believe me, but I committed 2nd degree murder! It was the girls downstairs!" Pt declined Ativan, "No I just want my regular medications." This RN continued to reassure pt he is not a bad person, and did not deserve to choke and be sent to ICU. Pt eventually calmed, but maintained his delusion, and added that "The wood chopper will be coming for me tomorrow. I don't want to say I told you so, but I'll be gone tomorrow, you'll see." Pt took HS medications once med rec was completed; he awoke multiple times past 0000, each time disoriented to his room, stating he was either sick or ready for the police to come get him. Each time this RN reassured pt he was okay and pt was re-directable to return to bed. He engaged in regular conversation during these episodes, but intermittently would remind this RN that he would be going in the morning. Pt stated with a smile that the was just "testing RN" whenever he attempted to return to his previously assigned room. After the third time pt awoke, this RN offered pt Ativan 1mg, and he accepted. Pt has been sleeping since anxiolytic administration. S/I, H/I: Denies Both A/VH: Denies Both Sleep: See sleep assessment; Pt states he has not been getting good sleep recently ADL's: Independent, Needs encouragement and prompting Group attendance: N/A Were Meds taken: Yes Any med S/E: None reported; Gait Disturbance (rigidity, off-balance), Tongue jutting/twisting, Drooling Mental Status Exam Appearance: Appropriate: Unit green scrubs, hair disheveled, Nonskid socks Eye contact: Good (Direct) Behavior: Cooperative, Momentary agitation, Isolated to room Speech: Slight Slur, Soft, Responds appropriately to questions Mood: "Okay", Agitated, Restless Affect: Blunted Thought process: Perseverative Thought Content: Delusional Cognition: A&Ox4 Insight: Poor Judgment: Poor to fair Interventions PRN's used: Ativan 1mg Therapeutic interventions: 1:1 assessment, encouraged pt to express thoughts and feelings, monitored behavior and need for intervention, positive reassurance, medication administration/education/monitoring, Q 15 min safety checks. Restraints/seclusion/emergency medication: N/A Justification of Continued Inpatient Treatment: Pt is conserved and awaiting placement. Pt continues to require a safe and supportive environment. Addendum: 10/10/19 at 0224 by Violetta Barbosa RN Pt awoke, requesting juice. Has been sitting up in TV room, needing redirection back to room to sleep. Addendum: 10/10/19 at 0311 by Violetta Barbosa RN Pt up again, redirected back to room, and fell down. Pt assisted back to bed. Vitals obtained: BP - 115/72, HR 120, SpO2 - 90, T: 98.7, RR: 22, [place]. RN conferred with charge for breathing treatment implementation as pt continues to cough, but not well, due to soreness from Code Blue earlier in the week. Pt agreeable to breathing treatment, also requesting something "to break up the mucus". Pt denied hitting his head, and the Unit tech first to arrive at the fall stated pt was propped on elbow on his left side. Hospitalist paged re: fall, as pt is unable to state clearly whether he hit his head or not. Addendum: 10/10/19 at 0322 by Violetta Barbosa RN Hospitalist MD Jarquin Called Re: carlton - Stated since pt is denying pain, continue to observe for mental status. Any changes call hospitalists to update. Addendum: 10/10/19 at 0401 by Violetta Barbosa RN RT paged fro breathing tx by Rachel LUONG; RT came and left w/o administering treatment. quick technician called to inquire as to why tx not performed, RT stated she assessed the pt and determined a breathing tx is not needed at that time. Pt continues to wake up intermittently to cough. RR 17 at rest. Head of bed is elevated, as it has been since pt first went to bed, and this RN continues to encourage pt to cough in an effort to bring up phlegm, but pt states his ribs are sore. Addendum: 10/10/19 at 0433 by Violetta Barbosa RN RT on unit to re-assess pt. RT educated that breathing tx is not recommended at this time because bronchodilator not indicated because vitals not conducive to tx, and it will make pt cough more and given his level of sedation after Ativan administration, pt would not be able to cough well. RT assessed RR - 14 and SpO2 - 94%, Upper airway coarseness. RT recommends IS or Flutter, suggests putting in RT Eval/Treat. Addendum: 10/10/19 at 0629 by Violetta Barbosa RN Pt continues to intermittently cough; encouraged to cough ans expectorate. Pt states his ribs are sore, makes it hard. This RN suggested Tylenol for pain, which pt declined earlier; states he prefers ibuprofen. Ativan is beginning to wear off, pt is becoming more alert with increased mobility. Pt looks tired, and states he is exhausted. Pt denies headache, dizziness. RN sitting at bedside until relieved by Ramon dhaliwal, whom RN update on patient status. Pt continues to want to get up, but is redirected back to bed or to sit in a bedside chair that this RN brought into his room.
[2019-10-10] MEDS ORDERED: ipratropium/albuterol 3ml nebule NEB PRN (03:05)
[2019-10-10 03:11] VITALS: BP 115/72
--- NOTE | 2019-10-10 04:38 | NUR ---
RT PAGED TO [facility] FOR BREATHING TX @ 0307 PT SOB, NEEDS TX. ASSESSED PT TO BE ASLEEP RESTING COMFORTABLY ON RA @ 92% RR 15 WITH UPPER AIRWAY DROOLING AND SLIGHT COARSENESS. PT HARD TO AWAKEN , PT STATES HE WAS NOT SOB BUT SORE. NO TX INDICATED. AFTER LEAVING THE FLOOR , @ 0335 LINING LAYER PAGED TO WHY PT HAD NOT RECEIVED A TX. EDUCATED THERE WAS NO INDICATION FOR TX, NO WHEEZING NO SOB. ALSO PT WAS IN NO DISTRESS. CHARGE NURSE EXPLAINED HE HAS BEEN COUGHING, HAVING A HARD TIME DUE TO BEING SORE AND NEEDS THE TX FOR HIS COUGH. EDUCATED ON PULMONARY TOILETRY, RECOMMENDED FLUTTER/I.S. OR RT EVAL & TX. RT PAGED STAT TO [facility] AGAIN FOR TX @ 0413. UPON ARRIVAL PT AGAIN ASLEEP RESTING COMFORTABLY IN NO DISTRESS ON RA 94%, RR 15, CLEAR/DIMINISHED BREATH SOUNDS. SPOKE TO CHARGE NURSE AND EXPLAINED THE DUONEB IS NOT INDICATED. PT WOULD BENEFIT FROM PULMONARY TOILETRY, AFTER HIS ATIVAN CLEARS AND HE IS MORE ALERT AND AWAKE Addendum: 10/10/19 at 0503 by Elise Morrow RT Amended: Links added.
[2019-10-10 07:30] VITALS: BP 109/75
[2019-10-10 07:50] LABS: CHOL/HDL RATIO 2.5 (0.00-4.99); CHOLESTEROL 168 MG/DL (0-200); HDL CHOLESTEROL 66 MG/DL (35-60); LDL CHOLESTEROL 90 MG/DL (50-100); TRIGLYCERIDES 80 MG/DL (20-135)
[2019-10-10] MEDS ORDERED: pyridoxine 50mg tablet PO SCH (08:00)
[2019-10-10] MEDS ORDERED: multivitamins, therapeutics tablet PO SCH (08:00)
[2019-10-10] MEDS ORDERED: docusate sod 100mg capsule PO SCH (08:00)
[2019-10-10] MEDS ORDERED: levoTHYROXINE 112mcg tablet PO SCH (08:00)
[2019-10-10] MEDS ORDERED: sennosides 8.6mg tablet PO SCH (08:00)
[2019-10-10] MEDS ORDERED: lisinopril 5mg tablet PO SCH (08:00)
[2019-10-10] MEDS ORDERED: tamsulosin 0.4mg capsule PO SCH (08:00)
[2019-10-10] MEDS: lamoTRIgine 25mg tablet PO SCH (08:11)
--- NOTE | 2019-10-10 16:15 | NUR ---
DISCHARGE NOTE: Pt. transferred to surgical due to Dysphagia by Dr. Juarez, needing further GI workup. Pt. A&OX3. Pt. transferred with LOS. Pt. denies SI/HI, A/V hallucinations. Pt. continues to have delusions about being wanted by the law.
== END 2019-10-10 19:12 | disposition short-term general hospital (02) | DRG 885 ==
LOC: ADULT MH 16:24
PROVIDERS: ADMIT Psychiatry & Neurology Psychiatry; ATTEND Psychiatry & Neurology Psychiatry
DX: F25.0 Schizoaffective disorder, bipolar type (principal); E03.9 Hypothyroidism, unspecified; R13.10 Dysphagia, unspecified; E78.00 Pure hypercholesterolemia, unspecified; I10 Essential (primary) hypertension
CPT/HCPCS: 36415; 74230; 80061; 92508; 99285

== ENCOUNTER 2019-10-10 15:08 | Inpatient (IN) | payer MEDICARE, MEDICAID ==
[~2019-10-10] VITALS: Ht 177.8 cm; Wt 72.5 kg
[~2019-10-10 15:08] MED LIST changes: +DOCU-148 PO; +LAMO25TA4 PO; +LISI2.5T89 PO; +LITH150C8 PO; +SENN-162 PO
[2019-10-10] MEDS: normal saline 1000ml 1,000 ML IV SCH (16:12)
[2019-10-10] MEDS ORDERED: acetaminophen 650mg rectal suppository RC PRN (16:15)
[2019-10-10] MEDS ORDERED: ondansetron/PF 4mg/2ml inj IV PRN (16:15)
[2019-10-10] MEDS ORDERED: potassium Cl 20 mEq SR tablet PO PRN ×2 (16:15)
[2019-10-10] MEDS ORDERED: magnesium Cl slow-release 64mg tablet PO PRN (16:15)
[2019-10-10] MEDS ORDERED: morphine 2 MG/ML inj. syringe IV PRN (16:15)
[2019-10-10] MEDS ORDERED: magnesium 4gm in 100ml NS 100 ML IV PRN (16:15)
[2019-10-10] MEDS ORDERED: bisacodyl 10mg suppository rectal RC PRN (16:15)
[2019-10-10] MEDS ORDERED: potassium CL 10mEq/100ml bag 100 ML IV PRN ×2 (16:15)
[2019-10-10] MEDS ORDERED: magnesium 2GM in 50ml NS 50 ML IV PRN (16:15)
--- NOTE | 2019-10-10 16:50 | NUR ---
Patient in room ABRAN 340. I have received report from Guy LUONG and had the opportunity to ask questions and assume patient care.
--- NOTE | 2019-10-10 16:50 | NUR ---
Patient made familiar with room at this time, Patient came over with sitter as well
--- NOTE | 2019-10-10 16:51 | NUR ---
Patient alert oriented understands what is going with him at this time.
[2019-10-10 16:54] VITALS: BP 95/61
[2019-10-10 18:00] VITALS: BP 111/72
--- NOTE | 2019-10-10 18:48 | NUR ---
Problems reprioritized. Patient report given, questions answered & plan of care reviewed with Lazaro LUONG.
[2019-10-10] MEDS: K and/or MAG REPLACEMENT MC SCH (20:00)
[2019-10-10] MEDS: heparin, porcine 5000 units/ml vial SQ SCH (21:53)
[2019-10-11] VITALS (8 sets, daily range): BP systolic 92–114; BP diastolic 50–80
[2019-10-11] MEDS: normal saline 1000ml 1,000 ML IV SCH ×3 (02:12→22:12)
[2019-10-11 05:22] LABS: BASOPHILS % (AUTO) 0.3 % (0-1); EOSINOPHILS # (AUTO) 0.3 X10'3 (0-0.9); EOSINOPHILS % (AUTO) 2.6 % (0-6); HEMATOCRIT 40.9 % (42.0-52.0); HEMOGLOBIN 14.1 g/dl (14.0-17.9); LYMPHOCYTES % (AUTO) 17.6 % (21-51); MEAN CORPUSCULAR HEMOGLOBIN 31.8 PG (27.0-31.0); MEAN CORPUSCULAR HGB CONC 34.5 g/dL (33.0-36.5); MEAN CORPUSCULAR VOLUME 92.1 FL (78-98); MEAN PLATELET VOLUME 7.3 FL (7.4-10.4); MONOCYTES # (AUTO) 0.9 X10'3 (0-0.9); NEUTROPHILS # (AUTO) 7.9 X10'3 (1.8-7.7); NEUTROPHILS % (AUTO) 71.5 % (42-75); PLATELET COUNT 266 X10'3 (140-440); RED BLOOD COUNT 4.44 X10'6 (4.70-6.10); RED CELL DISTRIBUTION WIDTH 13.2 % (11.5-14.5); WHITE BLOOD COUNT 11.1 X10'3 (4.5-11.0)
[2019-10-11 05:39] LABS: ALANINE AMINOTRANSFERASE 26 U/L (12-78); ALBUMIN/GLOBULIN RATIO 0.9 (1.1-1.5); ALKALINE PHOSPHATASE 81 IU/L (46-116); ANION GAP 10 (8-16); ASPARTATE AMINO TRANSFERASE 17 U/L (10-37); BILIRUBIN,TOTAL 0.6 MG/DL (0.1-1.0); BLOOD UREA NITROGEN 12 MG/DL (7-18); BUN/CREATININE RATIO 14.8 (5.4-32.0); CALCIUM 8.9 MG/DL (8.5-10.1); CHLORIDE 105 MMOL/L (99-107); CREATININE 0.81 MG/DL (0.60-1.10); GLUCOSE 87 MG/DL (70-104); MAGNESIUM 1.7 MG/DL (1.5-2.4); POTASSIUM 3.6 MMOL/L (3.5-5.1); SODIUM 139 MMOL/L (135-145); TOTAL CARBON DIOXIDE 24.1 MMOL/L (24-32); TOTAL PROTEIN 6.3 G/DL (6.4-8.2); eGFR > 90 ML/MIN
--- NOTE | 2019-10-11 06:37 | NUR ---
Report given to CHERISE Rios
--- NOTE | 2019-10-11 06:42 | NUR ---
Patient in room ABRAN 360. I have received report from Lazaro LUONG and had the opportunity to ask questions and assume patient care.
[2019-10-11] MEDS: K and/or MAG REPLACEMENT MC SCH ×2 (08:00→19:02)
[2019-10-11] MEDS ORDERED: fentaNYL/PF 50MCG/1 ML 2ML syringe ONE (08:27)
[2019-10-11] MEDS ORDERED: LIDOcaine Viscous 15ml cup ONE (08:27)
[2019-10-11] MEDS ORDERED: MIDAZolam 5mg/5ml vial ONE (08:27)
[2019-10-11] MEDS: pantoprazole 40 MG vial IV SCH (10:40)
[2019-10-11] MEDS: heparin, porcine 5000 units/ml vial SQ SCH ×2 (10:41→20:00)
--- NOTE | 2019-10-11 12:46 | NUR ---
Initial: Pt transferred from [facility]. Pt was recently intubated because he choked on a sandwich and went to ICU for acute respiratory failure where pt was intubated. Following extubation pt had a BSS 10/09 with reports pt was swallowing well with foods and liquids, however pt had a video swallow study done 10/10 with recs NPO and may need alternative nutrition and GI consult d/t pt with "delay in swallow reflex with food and liquids with excessive residue in pharynx in both the valleculae and pyriform sinuses after swallowing and difficulty clearing making him high risk for aspiration". Pt NPO on current admit to the floors however diet has been upgraded to mechanical soft s/p EGD with results of normal upper endoscopy. RD consulted for f/u BSS given pt failing video swallow study just yesterday. No documented LBM. Will continue to follow closely. Recommendations: 1) Advance diet as medically indicated to heart healthy per ST recs pending f/u BSS 2) Monitor need for alt nutrition/ONS 3) Bowel care PRN 4) Wt per rx Addendum: 10/11/19 at [address] Amended: Links added.
--- NOTE | 2019-10-11 19:19 | NUR ---
Problems reprioritized. Patient report given, questions answered & plan of care reviewed with Lazaro LUONG.
--- NOTE | 2019-10-11 21:15 | NUR ---
pt refusing Iv after pulling out previously. educated importance of having IV access and IV fluids as well as scheduled heparin.
[2019-10-12] VITALS: BP 105/68
[2019-10-12 05:45] LABS: ALANINE AMINOTRANSFERASE 24 U/L (12-78); ALBUMIN/GLOBULIN RATIO 0.9 (1.1-1.5); ALKALINE PHOSPHATASE 90 IU/L (46-116); ANION GAP 5 (8-16); ASPARTATE AMINO TRANSFERASE 14 U/L (10-37); BILIRUBIN,TOTAL 0.5 MG/DL (0.1-1.0); BLOOD UREA NITROGEN 17 MG/DL (7-18); BUN/CREATININE RATIO 16.7 (5.4-32.0); CALCIUM 9.3 MG/DL (8.5-10.1); CHLORIDE 105 MMOL/L (99-107); CREATININE 1.02 MG/DL (0.60-1.10); GLUCOSE 97 MG/DL (70-104); MAGNESIUM 1.7 MG/DL (1.5-2.4); POTASSIUM 3.8 MMOL/L (3.5-5.1); SODIUM 138 MMOL/L (135-145); TOTAL CARBON DIOXIDE 27.6 MMOL/L (24-32); TOTAL PROTEIN 6.3 G/DL (6.4-8.2); eGFR 74 ML/MIN
[2019-10-12 05:57] LABS: BASOPHILS % (AUTO) 0.4 % (0-1); EOSINOPHILS # (AUTO) 0.4 X10'3 (0-0.9); EOSINOPHILS % (AUTO) 3.3 % (0-6); HEMATOCRIT 40.5 % (42.0-52.0); HEMOGLOBIN 14.2 g/dl (14.0-17.9); LYMPHOCYTES # (AUTO) 2.1 X10'3 (1.1-4.8); LYMPHOCYTES % (AUTO) 18.4 % (21-51); MEAN CORPUSCULAR HEMOGLOBIN 32.3 PG (27.0-31.0); MEAN CORPUSCULAR HGB CONC 35.1 g/dL (33.0-36.5); MEAN PLATELET VOLUME 7.3 FL (7.4-10.4); MONOCYTES % (AUTO) 8.8 % (2-12); NEUTROPHILS # (AUTO) 7.7 X10'3 (1.8-7.7); NEUTROPHILS % (AUTO) 69.1 % (42-75); PLATELET COUNT 283 X10'3 (140-440); RED CELL DISTRIBUTION WIDTH 12.9 % (11.5-14.5); WHITE BLOOD COUNT 11.2 X10'3 (4.5-11.0)
--- NOTE | 2019-10-12 06:11 | NUR ---
report given to CHERISE Blackmon
[2019-10-12 07:00] VITALS: BP 115/77
--- NOTE | 2019-10-12 07:00 | NUR ---
Discharge orders on this pt. Pt is to return voluntarily to when there is a bed available. Charge, warehouse handler and MD aware of delay.
[2019-10-12] MEDS: pantoprazole 40 MG vial IV SCH (08:00)
[2019-10-12] MEDS: K and/or MAG REPLACEMENT MC SCH (08:00)
[2019-10-12] MEDS: normal saline 1000ml 1,000 ML IV SCH (08:12)
--- NOTE | 2019-10-12 08:38 | NUR ---
PAGER ID: [phone] MESSAGE: ARNOLDO BROWNE 360B PLEASE CALL ME AT [phone] ABOUT THIS PT - JUSTIN 1031 SPOKE TO REGAURDING TRANSFER TO ER OVERFLOW AND IV. PT REMOVED IV LAST NIGHT AND DID NOT HAVE AN IV AT THE BEGINNING OF SHIFT WITH IV MEDICATIONS ORDERED. STATED TO DC IV FLUIDS AND PROTONIX. GIVE PO PROTONIX AND OK TO LEAVE IV OUT. SEE NEW ORDERS.
[2019-10-12] MEDS: heparin, porcine 5000 units/ml vial SQ SCH (08:44)
[2019-10-12] MEDS ORDERED: pantoprazole 40mg Tablet.DR PO ONE (08:45)
[2019-10-12 11:22] VITALS: BP 112/63
--- NOTE | 2019-10-12 11:34 | NUR ---
Gave report on pt. to Katrin LUONG in . She states she will call with the bed is available, states they are in the room cleaning now.
--- NOTE | 2019-10-12 12:16 | NUR ---
PT. DISCHARGED TO . STAFF CAME TO PSYCHIATRIC NURSING ASSISTANT PT. IN , GATHERED BELONGINGS TO TAKE WITH PT.
[2019-10-13] MEDS ORDERED: pantoprazole 40mg Tablet.DR PO SCH (07:30)
== END 2019-10-12 12:06 | DRG 392 ==
LOC: SUR 3N 15:08
PROVIDERS: ADMIT Internal Medicine; ATTEND Internal Medicine
PROC: 0DJ08ZZ Inspection of Upper Intestinal Tract, Via Natural or Artificial Opening Endoscopic (ICD-10-PCS; principal; 2019-10-11)
DX: K21.9 Gastro-esophageal reflux disease without esophagitis (principal); F29 Unspecified psychosis not due to a substance or known physiological condition; F31.9 Bipolar disorder, unspecified; F20.9 Schizophrenia, unspecified; K59.00 Constipation, unspecified
CPT/HCPCS: 36415; 43235; 80053; 83735; 85025; 99152; A4620; C9113; G0378; J1644; J2250; J3010; J7030; J7040